=== PATIENT | male | born 1930 | race Caucasian/White ===

== ENCOUNTER 2016-02-27 15:44 | Inpatient (IN) | payer OTHER, MEDICARE ==
[2016-02-27] MEDS ORDERED: PREDNISONE 20 MG TABLET PO ONE (16:37)
[2016-02-27] MEDS ORDERED: IPRATROPIUM/ALBUTEROL 0.5-2.5 MG/3 ML AMPUL NEB ONE (16:37)
--- NOTE | 2016-02-27 16:39 | ER Document Report ---
ED Medical Screen (RME) - General Stated Complaint: SHORTNESS OF BREATH Mode of Arrival: Wheelchair Information source: Patient Notes: Patient presents complaining of generalized weakness, shortness of breath and cough for the past 4 days. Patient denies any fever or chest pain. hx: COPD TRAVEL OUTSIDE OF THE [place] IN LAST 30 DAYS: No - Related Data Allergies/Adverse Reactions: No Known Allergies Allergy (Verified 02/27/16 16:30) Past Medical History Pulmonary Medical History: Reports: Hx COPD Past Surgical History: Reports: Hx Orthopedic Surgery - bilat knees Physical Exam - Vital signs Vitals: Temp Pulse Resp BP Pulse Ox 98.4 F 107 H 24 H 148/88 H 93 02/27/16 16:08 02/27/16 16:08 02/27/16 16:08 02/27/16 16:08 02/27/16 16:08 - Respiratory Respiratory status: No respiratory distress Breath sounds: Nonproductive cough, Wheezing Course - Vital Signs Vital signs: Temp Pulse Resp BP Pulse Ox 98.4 F 107 H 24 H 148/88 H 93 02/27/16 16:08 02/27/16 16:08 02/27/16 16:08 02/27/16 16:08 02/27/16 16:08
[2016-02-27 17:45] LABS: HEMATOCRIT 43.4 % (37.9-51.0); HEMOGLOBIN 14.6 g/dL (13.5-17.0); HGB HCT DIFFERENCE 0.4; MEAN CORPUSCULAR HEMOGLOBIN 33.7 pg (27.0-33.4); MEAN CORPUSCULAR HGB CONC 33.6 g/dL (32.0-36.0); MEAN CORPUSCULAR VOLUME 100 fl (80-97); RED BLOOD COUNT 4.33 10^6/uL (4.35-5.55); RED CELL DISTRIBUTION WIDTH 13.4 % (11.5-14.0); WHITE BLOOD COUNT 6.7 10^3/uL (4.0-10.5)
[2016-02-27 17:55] LABS: ALANINE AMINOTRANSFERASE 84 U/L (21-72); ALBUMIN 3.2 g/dL (3.5-5.0); ALKALINE PHOSPHATASE 111 U/L (38-126); ANION GAP 10 (5-19); ASPARTATE AMINO TRANSFERASE 43 U/L (17-59); BILIRUBIN,TOTAL 0.8 mg/dL (0.2-1.3); BLOOD UREA NITROGEN 31 mg/dL (7-20); CALCIUM 9.9 mg/dL (8.4-10.2); CARBON DIOXIDE 33 mmol/L (22-30); CHLORIDE 100 mmol/L (98-107); CREATINE KINASE 22 U/L (55-170); CREATININE RESULT 0.82 mg/dL (0.52-1.25); GLUCOSE 172 mg/dL (75-110); POTASSIUM 4.5 mmol/L (3.6-5.0); SODIUM 142.8 mmol/L (137-145)
[2016-02-27 18:04] LABS: BASOPHILS % (MANUAL) 0 % (0-2); EOSINOPHILS % (MANUAL) 0 % (0-6); LYMPHOCYTES % (MANUAL) 5 % (13-45); TOTAL CELLS COUNTED 100
[2016-02-27 18:05] LABS: TOXIC GRANULATION SLIGHT
[2016-02-27 18:07] LABS: CREATINE KINASE MB 1.58 ng/mL (<4.55)
--- NOTE | 2016-02-27 18:08 | ER Document Report ---
ED Respiratory Problem <SUSHANT ANTONIO - Last Filed: 02/27/16 22:33> - General Mode of Arrival: Wheelchair Information source: Patient, Relative TRAVEL OUTSIDE OF THE [place] IN LAST 30 DAYS: No - HPI Patient complains to provider of: Short of breath Associated symptoms: Other - See above <ANALI CHÁVEZ - Last Filed: 03/04/16 15:33> - General Chief Complaint: Shortness Of Breath Stated Complaint: SHORTNESS OF BREATH Notes: Patient is an 86 year old male, with a past medical history including COPD, who presents to the emergency department complaining of shortness of breath onset 3 days ago. Patient also complains of nervousness causing him to hyperventilate and that squeezing his hands together helps make him fell like he's in control. Patient's reports that he had driven to [place] last week then they had a family [place] and that night he had become very weak and short of breath. Patient is not on any heart medications but uses medications for his COPD. Patient denies chest pain, fever, black or bloody stool, vomiting, and burning while urinating. (ANALI CHÁVEZ) - Related Data Allergies/Adverse Reactions: No Known Allergies Allergy (Verified 02/27/16 16:30) Home Medications: Current Home Medications Albuterol Sulfate [Proair HFA] 2 puff IH QIDP PRN 02/28/16 [History] Budesonide/Formoterol Fumarate [Symbicort Hfa 160-4.5 Mcg Inhaler 6 gm] 1 puff IH Q12 02/28/16 [History] Diclofenac Sodium [Voltaren] 2 gm TP QID MDD 32 GM/24 HOURS 02/28/16 [History] Ipratropium/Albuterol Sulfate [Combivent Inhaler] 1 puff IH QID 02/28/16 [ History] Montelukast Sodium 10 mg PO DAILY 02/28/16 [History] Tiotropium [place] [Spiriva Handihaler 18 mcg/dose (30 Dose)] 1 cap IH DAILY [History] Past Medical History - General Information source: Patient - Social History Smoking Status: Unknown if Ever Smoked Family History: Reviewed & Not Pertinent Pulmonary Medical History: Reports: Hx COPD Past Surgical History: Reports: Hx Orthopedic Surgery - bilat knees <ANALI CHÁVEZ - Last Filed: 03/04/16 15:33> Review of Systems - Review of Systems Constitutional: See HPI, Weakness. denies: Fever EENT: No symptoms reported Cardiovascular: denies: Chest pain Respiratory: See HPI, Short of breath, Other - hyperventilation Gastrointestinal: denies: Vomiting, Blood streaked bowels, Black stools Genitourinary: denies: Burning Male Genitourinary: No symptoms reported Musculoskeletal: No symptoms reported Skin: No symptoms reported Hematologic/Lymphatic: No symptoms reported Neurological/Psychological: No symptoms reported -: Yes All other systems reviewed and negative <ANALI CHÁVEZ - Last Filed: 03/04/16 15:33> Physical Exam - Vital signs Interpretation: Tachycardic, Tachypneic - General General appearance: Alert - HEENT Head: Normocephalic, Atraumatic Mucous membranes: Moist - Respiratory Respiratory status: Tachypnea Chest status: Nontender Breath sounds: Decreased air movement, Wheezing - Scattered expiratory wheezing bilaterally Chest palpation: Normal - Cardiovascular Rhythm: Regular, Tachycardia Heart sounds: Normal auscultation Murmur: No - Abdominal Inspection: Normal Distension: No distension Bowel sounds: Normal Tenderness: Nontender Organomegaly: No organomegaly - Back Back: Normal, Nontender - Extremities General upper extremity: Normal inspection General lower extremity: Edema - 2+ pitting edema bilaterally - Neurological Neuro grossly intact: Yes Cognition: Normal Orientation: AAOx4 [place] Coma Scale Eye Opening: Spontaneous [place] Coma Scale Verbal: Oriented [place] Coma Scale Motor: Obeys Commands [place] Coma Scale Total: 15 Speech: Normal - Psychological Associated symptoms: Normal affect, Normal mood - Skin Skin Temperature: Warm Skin Moisture: Dry Skin Color: Normal <ANALI CHÁVEZ - Last Filed: 03/04/16 15:33> - Vital signs Vitals: Temp Pulse Resp BP Pulse Ox 98.4 F 107 H 24 H 148/88 H 93 02/27/16 16:08 02/27/16 16:08 02/27/16 16:08 02/27/16 16:08 02/27/16 16:08 (SUSHANT ANTONIO) (ANALI CHÁVEZ) Course - Laboratory Result Diagrams: 02/27/16 17:20 02/27/16 17:20 - EKG Interpretation by [place] EKG shows normal: abnormal: Sinus rhythm Rate: Tachycardia Rhythm: A.Flutter, PVC's - unable to see p waves, so EKG most consistent with a. flutter with PVCs - will get second EKG P Waves: Absent <SUSHANT ANTONIO - Last Filed: 02/27/16 22:33> - Laboratory Result Diagrams: 03/04/16 04:03 03/04/16 04:03 <ANALI CHÁVEZ - Last Filed: 03/04/16 15:33> - Re-evaluation Re-evalutation: 02/27/16 22:33 Patient's exam and clinical findings are most remarkable for CHF with rapid atrial flutter and hypertension. Patient will be on Cardizem drip with Nitropaste. I have spoken with the hospitalist Dr. Burciaga who has agreed admission to the [facility]. (SUSHANT ANTONIO) - Vital Signs Vital signs: Temp Pulse Resp BP Pulse Ox 97.5 F 118 H 20 139/91 H 96 03/04/16 11:16 03/04/16 11:16 03/04/16 11:16 03/04/16 11:16 03/04/16 11:16 (SUSHANT ANTONIO) (ANALI CHÁVEZ) - Laboratory Laboratory results interpreted by me: 02/27/16 02/27/16 02/27/16 17:20 17:20 17:20 RBC 4.33 L MCV 100 H MCH 33.7 H Plt Count 136 L Lymphocytes % (Manual) 5 L Monocytes % (Manual) 20 H Abs Lymphs (Manual) 0.3 L D-Dimer VBG pCO2 VBG HCO3 Carbon Dioxide 33 H BUN 31 H Glucose 172 H ALT 84 H Creatine Kinase 22 L NT-Pro-B Natriuret Pep 7310 H Total Protein 6.0 L Albumin 3.2 L Urine Protein Urine Urobilinogen Urine Ascorbic Acid 02/27/16 02/27/16 02/28/16 17:20 17:55 01:10 RBC MCV MCH Plt Count Lymphocytes % (Manual) Monocytes % (Manual) Abs Lymphs (Manual) D-Dimer 1.08 H VBG pCO2 VBG HCO3 Carbon Dioxide BUN Glucose ALT Creatine Kinase < 20 L NT-Pro-B Natriuret Pep Total Protein Albumin Urine Protein 100 H Urine Urobilinogen 4.0 H Urine Ascorbic Acid 40 H 02/28/16 01:10 RBC MCV MCH Plt Count Lymphocytes % (Manual) Monocytes % (Manual) Abs Lymphs (Manual) D-Dimer VBG pCO2 68.5 H* VBG HCO3 35.1 H Carbon Dioxide BUN Glucose ALT Creatine Kinase NT-Pro-B Natriuret Pep Total Protein Albumin Urine Protein Urine Urobilinogen Urine Ascorbic Acid (SUSHANT ANTONIO) (ANALI CHÁVEZ) - EKG Interpretation by Me Additional EKG results interpreted by me: 02/27/16 22:32 EKG2 - heart rate 121, atrial flutter with 2-1 block, PVCs, left axis deviation , left ventricular hypertrophy, as interpreted by me. (SSUHANT ANTONIO) Scribe Documentation - Scribe Written by Scribe:: Anali Chávez 02/27/16 acting as scribe for :: Tolentino <ANALI CHÁVEZ - Last Filed: 03/04/16 15:33>
[2016-02-27 18:10] LABS: TROPONIN I 0.051 ng/mL
[2016-02-27] MEDS ORDERED: NORMAL SALINE 1000 ML 500 ML IV PRN (18:24)
[2016-02-27 18:39] LABS: APPEARANCE,URINE SLIGHTLY-CLOUDY; BILIRUBIN,URINE NEGATIVE (NEGATIVE); GLUCOSE, URINE NEGATIVE (NEGATIVE); KETONES,URINE NEGATIVE (NEGATIVE); LEUKOCYTE ESTERASE,URINE NEGATIVE (NEGATIVE); NITRITE,URINE NEGATIVE (NEGATIVE); PROTEIN,URINE 100 mg/dL (NEGATIVE); URINE SPECIFIC GRAVITY 1.029
--- NOTE | 2016-02-27 18:56 | EKG REPORT ---
SEVERITY:- ABNORMAL ECG - ATRIAL FLUTTER/FIBRILLATION, A-RATE 254 MULTIPLE PREMATURE COMPLEXES, VENT LVH WITH IVCD, LAD AND SECONDARY REPOL ABNRM : Confirmed by: Franklin Pugh MD 27-Feb-2016 18:55:49
[2016-02-27] MEDS ORDERED: DILTIAZEM HCL INJ 25 MG/5 ML VIAL IV ONE (20:42)
[2016-02-27] MEDS ORDERED: DILTIAZEM HCL/D5W 125 ML IV PRN (20:44)
[2016-02-27] MEDS ORDERED: NITROGLYCERIN 10 MG (0.4 MG/HR) PATCH.TD24 TD ONE (20:44)
[2016-02-27] MEDS ORDERED: GLUCAGON,HUMAN RECOMB 1 MG INJ IM PRN (23:30)
[2016-02-27] MEDS ORDERED: INSULIN LISPRO 100 UNIT/ML 3 ML VIAL SUBCUT PRN (23:30)
[2016-02-27] MEDS ORDERED: DEXTROSE 50%-WATER 25 GM/50 ML DISP.SYRIN IV PRN ×2 (23:30)
[2016-02-27] MEDS ORDERED: DEXTROSE 40% GEL 15 GM TUBE PO PRN ×2 (23:30)
[2016-02-27] MEDS ORDERED: CEFTRIAXONE 1 GM/D5W RTU 50 ML IV SCH (23:45)
[2016-02-28] MEDS: CEFTRIAXONE 1 GM/D5W RTU 1 GM/50 ML RTUPB IV SCH ×2 (01:00→16:34)
[2016-02-28] MEDS: CEFTRIAXONE 1 GM/D5W RTU 1 GM/50 ML RTUPB IV ONE (01:00)
[2016-02-28] MEDS ORDERED: AZITHROMYCIN 500 MG in DEXTROSE 5%-WATER 250 ML IV ONE (01:00)
[2016-02-28 01:18] LABS: VENOUS BLOOD BASE EXCESS 6.7 mmol/L; VENOUS BLOOD HCO3 35.1 mmol/L (20-32); VENOUS BLOOD PH 7.33 (7.30-7.42)
[2016-02-28] MEDS ORDERED: ACETAMINOPHEN 325 MG TABLET PO PRN (01:19)
[2016-02-28] MEDS ORDERED: ALBUTEROL SULFATE 0.083% NEB 2.5 MG/3 ML AMPUL NEB PRN (01:19)
[2016-02-28] MEDS ORDERED: GUAIFENESIN SYRP 200 MG/10 ML UDC PO PRN (01:19)
[2016-02-28 01:26] LABS: VENOUS BLOOD PCO2 68.5 mmHg (35-63)
--- NOTE | 2016-02-28 01:35 | PDOC H&P ---
History of Present Illness Admission Date/PCP: [place] Patient complains of: Short of breath History of Present Illness: SILVESTRE DELGADILLO is a 86 year old male with underlying home O2 dependent COPD, 2 L oxygen per nasal cannula, 23/09, who presents to the emergency room for evaluation of above complaint. Patient has been discussed with emergency room physician who evaluated the patient. Patient himself is a fairly rambling, somewhat disjointed historian. , who is his surrogate healthcare decision maker, and who is at his side with his approval, is about the same. Describes a three-day history of slowly progressive shortness of breath, in particular with much of any exertion. No nausea vomiting, fever or chills. No pain. He normally produces only small amounts of clear white sputum. Over the last 2- 3 days, sputum has turned brownish green and is greatly increased in amount. Questionable sick contacts recently consisting of family members who had cared for a child with strep throat. Child was not in the home itself. Never been intubated for respiratory difficulty. No antibiotics or hospital stay for the past 3 months. Up-to-date with flu and pneumonia vaccinations. Has apparently been told in the past that he has a "irregular heartbeat," but neither he nor have never heard the terms atrial fibrillation or atrial flutter, per se. No history of congestive heart failure or myocardial infarction. Questionable DVT in the . Currently resting quietly, stating he does feel a bit better. Laboratory results are listed in [facility] and are reviewed. X-ray summary results are listed below, with full report(s) reviewed. . EKG's reviewed . No old EKG available for comparison. Social history/personal habits: . One child. Retired. No tobacco use since 1974. Occasional alcoholic drink, but not very much or very often. No illicit drug use. Should patient become mentally incapacitated, surrogate health care decision maker . Family History : Child is healthy. Siblings are . Father of complications of diabetes mellitus. Mother of complications of heart disease. Allergies/adverse reactions NKDA. Home medications Home medications initially autopopulated into [employer] [facility] may not accurately reflect patient's true medications, dosages, and/or frequencies. Unfortunately, patient uncertain of medications/dosages/frequencies. Order to be entered for staff to contact family, outpatient physician, and/or pharmacy to more accurately determine medications, dosages, and frequencies and to contact physician when that has been accomplished. REVIEW OF SYSTEMS: Constitutional: No fever or chills. Eyes: Wears glasses. ENT: No swallowing problems or complaints. Partial hearing loss. Pulmonary: See history and present illness. Cardiovascular: See history and present illness. Gastrointestinal: No current complaints, including nausea or vomiting. Skin: No current complaints, including rashes. Hematologic: Easy bruising. Neurologic: No current complaints, including numbness or tingling. Musculoskeletal: No current complaints, including painful joints. Psychiatric: Anxiety depression; denies suicidal or homicidal ideation. Endocrine: No current complaints, including polyuria. Genitourinary: No current complaints, including dysuria. PHYSICAL EXAMINATION: 6 feet tall. 92 kg. 27.5 kg/m BMI. Blood pressure 136/97. Pulse 108 and slightly irregular. 91% saturation on 4 L oxygen per nasal cannula. Respirations are 26 and unlabored. Slightly overweight somewhat chronically ill appearing male, who nevertheless appears a bit younger than his stated age. Pleasant awake alert and cooperative. Fairly talkative gentleman. Mildly anxious, without agitation. Skin is warm and dry. No grossly obvious evidence of rash in areas of skin examined. No subcutaneous nodules palpated. ENT: Mildly hard of hearing to normal conversation. Tongue midline on protrusion pink and slightly tacky Eyes: No scleral icterus. Pupils equal and reactive to light at 3 mm. [place] conjunctivae. Neck is supple and nontender to gentle active range of motion and palpation. Midline trachea. No palpable thyroid nodule mass enlargement or tenderness. Lymphatic: No palpable cervical or clavicular nodes. Neck and lymphatic exams limited by patient body habitus. Psychiatric: Fair to reasonable insight into acute and chronic medical issues, although as noted above, he is a rather rambling, somewhat disjointed historian at times. Oriented to time location and why here. Lungs: Auscultation reveals slightly decreased, somewhat coarse breath sounds at the left base. Breath sounds clear and equal otherwise. No use of accessory respiratory muscles. Cardiovascular: Heart slightly irregular rate and rhythm, without gallop murmur or rub. No carotid or abdominal aortic bruits. Scant, minimally pitting lower calf, ankle, and pedal pedal edema. Faintly palpable dorsalis pedis pulses. Abdomen: soft, somewhat, distended nontender with positive bowel sounds. Unable to adequately evaluate abdomen for masses or organomegaly due to distention. Extremities: Feet are warm and dry. No calf tenderness to compression. Gentle manipulation of lower extremities fails to reveal any obvious evidence of injury or instability to knees hips or ankles. Neurologic: Moves upper extremities grossly normally. Patellar reflexes absent. Absent Babinski. Light touch is intact at feet. Dorsiflexion and plantarflexion of feet 5 / 5 and symmetric. Past Medical History Cardiac Medical History: Reports: DVT - Questionable DVT, 1980s., Other - History of irregular heartbeat. Denies: Congestive Heart Failure, Myocardial Infarction, Hyperlipidema, Hypertension, Pulmonary Embolism Pulmonary Medical History: Reports: Chronic Obstructive Pulmonary Disease (COPD) EENT Medical History: Reports: Eyes - Wears glasses., Ears - Partial hearing loss. Denies: Throat Neurological Medical History: Denies: Hemorrhagic CVA, Ischemic CVA, Seizures Endocrine Medical History: Denies: Diabetes Mellitus Type 1, Diabetes Mellitus Type 2, Hyperthyroidism, Hypothyroidism Renal/ Medical History: Reports: None Malignancy Medical History: Reports: Skin Cancer - Status post excision of melanoma from his anterior abdominal wall. GI Medical History: Denies: Cirrhosis, Gastroesophageal Reflux Disease, Hepatitis, Peptic Ulcer Disease Musculoskeltal Medical History: Denies: Arthritis Skin Medical History: Reports: Other - Status post excision of melanoma from his anterior abdominal wall. Psychiatric Medical History: Reports: Depression, General Anxiety Disorder Denies: Alcohol Dependency, Substance Abuse, Tobacco Dependency Hematology: Reports: Other - Easy bruising. Infectious Medical History: Denies: Hepatitis B, Hepatitis C Past Surgical History Past Surgical History: Reports: Orthopedic Surgery - bilat knees, Other - Excision of melanoma from his anterior abdominal wall. Social History Information Source: Patient, Relative, Emergency Med Personnel, [facility] Records Lives with: Spouse/Significant other Smoking Status: Former Smoker Frequency of Alcohol Use: Occasional Drugs: None - Advance Directive Resuscitation Status: Full Code Family History Family History: Reviewed & Not Pertinent Parental Family History Reviewed: Yes Children Family History Reviewed: Yes Sibling(s) Family History Reviewed.: Yes Medication/Allergy Home Medications: Albuterol Sulfate [Proair HFA] 2 puff IH QIDP PRN 02/28/16 Budesonide/Formoterol Fumarate [Symbicort Hfa 160-4.5 Mcg Inhaler 6 gm] 1 puff IH Q12 02/28/16 Diclofenac Sodium [Voltaren] 2 gm TP QID MDD 32 GM/24 HOURS 02/28/16 Ipratropium/Albuterol Sulfate [Combivent Inhaler] 1 puff IH QID 02/28/16 Montelukast Sodium 10 mg PO DAILY 02/28/16 Tiotropium [place] [Spiriva Handihaler 18 mcg/dose (30 Dose)] 1 cap IH DAILY Allergies/Adverse Reactions: No Known Allergies Allergy (Verified 02/27/16 16:30) Physical Exam Vital Signs: Temp Pulse Resp BP Pulse Ox 98.4 F 107 H 29 H 136/97 H 92 02/27/16 16:08 02/27/16 16:08 02/27/16 22:52 02/27/16 22:52 02/27/16 22:52 Intake & Output 02/26/16 02/27/16 02/28/16 00:59 00:59 00:59 Weight 92 kg Results Laboratory Results: 02/27/16 17:20 02/27/16 17:20 02/27/16 02/27/16 02/27/16 17:20 17:20 17:55 WBC 6.7 RBC 4.33 L Hgb 14.6 Hct 43.4 MCV 100 H MCH 33.7 H MCHC 33.6 RDW 13.4 Plt Count 136 L Seg Neutrophils % Not Reportable Lymphocytes % Not Reportable Monocytes % Not Reportable Eosinophils % Not Reportable Basophils % Not Reportable Absolute Neutrophils Not Reportable Absolute Lymphocytes Not Reportable Absolute Monocytes Not Reportable Absolute Eosinophils Not Reportable Absolute Basophils Not Reportable Sodium 142.8 Potassium 4.5 Chloride 100 Carbon Dioxide 33 H Anion Gap 10 BUN 31 H Creatinine 0.82 Est GFR ( Amer) > 60 Est GFR (Non-Af Amer) > 60 Glucose 172 H Calcium 9.9 Total Bilirubin 0.8 AST 43 ALT 84 H Alkaline Phosphatase 111 Total Protein 6.0 L Albumin 3.2 L Urine Color DARK YELLOW Urine Appearance SLIGHTLY-CLOUDY Urine pH 6.0 Ur Specific [place] 1.029 Urine Protein 100 H Urine Glucose (UA) NEGATIVE Urine Ketones NEGATIVE Urine Blood NEGATIVE Urine Nitrite NEGATIVE Ur Leukocyte Esterase NEGATIVE Urine WBC (Auto) 1 Urine RBC (Auto) 1 02/27/16 02/27/16 17:20 17:20 Creatine Kinase 22 L CK-MB (CK-2) 1.58 Troponin I 0.051 NT-Pro-B Natriuret Pep 7310 H Impressions: Chest X-Ray 02/27/16 16:38 IMPRESSION: LOWER LOBE AIRSPACE DISEASE SEEN ON LATERAL VIEW ONLY SUGGESTIVE OF PNEUMONIA. RECOMMEND FOLLOWUP RADIOGRAPHS 4 TO 6 WEEKS TO ENSURE RESOLUTION. Assessment & Plan - Diagnosis (1) Atrial flutter with rapid ventricular response Is this a current diagnosis for this admission?: YesPlan: Likely secondary to pneumonia. Currently on Cardizem drip, hemodynamically stable. Wean as tolerated. Cardiology consult. Echocardiogram. (2) Congestive heart failure Qualifiers: Congestive heart failure type: unspecified congestive heart failure type Congestive heart failure chronicity: acute Qualified Code(s): I50.9 - Heart failure, unspecified Is this a current diagnosis for this admission?: YesPlan: Likely secondary to atrial flutter with rapid ventricular response. Echocardiogram. Cardiology consult. (3) Elevated LFTs Is this a current diagnosis for this admission?: YesPlan: Possibly secondary to congestive heart failure. Follow-up chemistry. (4) New onset atrial flutter Is this a current diagnosis for this admission?: YesPlan: Elevated d-dimer. Negative ventilation perfusion lung scan. Suspect due to underlying pneumonia. (5) COPD exacerbation Is this a current diagnosis for this admission?: Yes (6) LLL pneumonia Qualifiers: Pneumonia type: due to unspecified organism Qualified Code(s): J18.1 - Lobar pneumonia, unspecified organism Is this a current diagnosis for this admission?: YesPlan: Patient will be admitted under COPD exacerbation and pneumonia protocol. Incentive spirometry twice a day. Scheduled DuoNeb's. PRN albuterol nebs daily prednisone. Prevacid for gastritis prophylaxis. Antibiotics will consist of intravenous Zithromax, and Rocephin. I strongly encouraged patient to notify staff should patient feel that respiratory status is worsening. Patient is a full code. I have strongly encouraged patient not to get out of bed without notifying staff , , to avoid a fall with injury. Knee high SCDs for DVT prophylaxis, along with subcutaneous Lovenox Impression and plans were discussed with patient, and , both of whom concur. Time spent in evaluation and management of patient: 75 minutes. - Inpatient Certification Based on my medical assessment, after consideration of the patient's comorbidities, presenting symptoms, or acuity I expect that the services needed warrant INPATIENT care.: Yes I certify that my determination is in accordance with my understanding of Medicare's requirements for reasonable and necessary INPATIENT services [42 CFR 412.3e].: Yes Medical Necessity: Need Close Monitoring Due to Risk of Patient Decompensation, Need For Continuous Telemetry Monitoring, Need for Nebulizer Therapy and Monitoring of Response, Need for IV Antibiotics, Risk of Complication if Not Cared For in Hospital, Risk of Diagnosis Which Will Require Inpatient Eval/Care/ Monitoring Post Hospital Care: D/C or Transfer Summary
[2016-02-28 01:45] LABS: CREATINE KINASE < 20 U/L (55-170)
[2016-02-28 02:00] LABS: CREATINE KINASE MB 1.47 ng/mL (<4.55); TROPONIN I 0.046 ng/mL
[2016-02-28] MEDS: LANSOPRAZOLE 30 MG TAB.RAP.DR PO SCH (07:00)
[2016-02-28] MEDS ORDERED: AZITHROMYCIN INJ 500 MG VIAL IV ONE (07:03)
[2016-02-28 07:48] LABS: VENOUS BLOOD BASE EXCESS 7.8 mmol/L; VENOUS BLOOD HCO3 37.1 mmol/L (20-32); VENOUS BLOOD PH 7.3 (7.30-7.42)
[2016-02-28 07:53] LABS: HEMATOCRIT 38.2 % (37.9-51.0); HEMOGLOBIN 12.8 g/dL (13.5-17.0); HGB HCT DIFFERENCE 0.2; MEAN CORPUSCULAR HEMOGLOBIN 33.8 pg (27.0-33.4); MEAN CORPUSCULAR HGB CONC 33.6 g/dL (32.0-36.0); MEAN CORPUSCULAR VOLUME 101 fl (80-97); RED CELL DISTRIBUTION WIDTH 13.1 % (11.5-14.0); WHITE BLOOD COUNT 5.6 10^3/uL (4.0-10.5)
[2016-02-28 07:54] LABS: VENOUS BLOOD PCO2 76.5 mmHg (35-63)
[2016-02-28] MEDS ORDERED: ENOXAPARIN SODIUM INJ 40 MG/0.4 ML DISP.SYRIN SUBCUT SCH (08:00)
[2016-02-28] MEDS ORDERED: IPRATROPIUM/ALBUTEROL 0.5-2.5 MG/3 ML AMPUL NEB SCH (08:00)
[2016-02-28 08:07] LABS: ALANINE AMINOTRANSFERASE 73 U/L (21-72); ALBUMIN 2.5 g/dL (3.5-5.0); ALKALINE PHOSPHATASE 86 U/L (38-126); ANION GAP 7 (5-19); ASPARTATE AMINO TRANSFERASE 28 U/L (17-59); BILIRUBIN,TOTAL 0.6 mg/dL (0.2-1.3); BLOOD UREA NITROGEN 27 mg/dL (7-20); CALCIUM 9.2 mg/dL (8.4-10.2); CARBON DIOXIDE 35 mmol/L (22-30); CHLORIDE 100 mmol/L (98-107); CREATININE RESULT 0.73 mg/dL (0.52-1.25); GLUCOSE 135 mg/dL (75-110); POTASSIUM 4.7 mmol/L (3.6-5.0); SODIUM 142.3 mmol/L (137-145)
[2016-02-28 08:13] LABS: CREATINE KINASE < 20 U/L (55-170)
--- NOTE | 2016-02-28 08:15 | EKG REPORT ---
SEVERITY:- ABNORMAL ECG - ATRIAL FLUTTER WITH 2:1 AV BLOCK VENTRICULAR PREMATURE COMPLEX LAD, CONSIDER LEFT ANTERIOR FASCICULAR BLOCK LVH WITH SECONDARY REPOLARIZATION ABNORMALITY : Confirmed by: Franklin Pugh MD 28-Feb-2016 08:14:25
[2016-02-28 08:18] LABS: CREATINE KINASE MB 1.41 ng/mL (<4.55); TROPONIN I 0.03 ng/mL
[2016-02-28 08:22] LABS: BAND NEUTROPHILS % (MANUAL) 5 % (3-5); BASOPHILS % (MANUAL) 0 % (0-2); EOSINOPHILS % (MANUAL) 0 % (0-6); LYMPHOCYTES % (MANUAL) 8 % (13-45); TOTAL CELLS COUNTED 100
[2016-02-28 08:24] LABS: POLYCHROMASIA SLIGHT; TOXIC GRANULATION 1+
[2016-02-28] MEDS: DILTIAZEM HCL/D5W 125 ML IV PRN (08:32)
[2016-02-28] MEDS: PREDNISONE 20 MG TABLET PO SCH (09:51)
[2016-02-28] MEDS ORDERED: NORMAL SALINE 1000 ML 1,000 ML IV PRN (10:32)
[2016-02-28] MEDS ORDERED: LEVALBUTEROL HCL NEB 0.63 MG/3 ML AMPUL NEB PRN (10:56)
--- NOTE | 2016-02-28 11:56 | XCELERA REPORT ---
[address] [address] Transthoracic Echocardiogram Report Name: SILVESTRE DELGADILLO Age: 86 yrs Gender: Male : 1930 Patient Status: Inpatient Patient Location: \S\ED18\S\A Study Date: 02/28/2016 09:20 AM Height: 72 in Weight: 202 lb BSA: 2.1 m2 Procedure: A two-dimensional transthoracic echocardiogram with color flow and Doppler was performed. The study was technically difficult with many images being suboptimal in quality. Study Quality: Technically suboptimal. Reason For Study: new aflutter; susp chf History: ATRIAL FLUTTER / COPD. Ordering Physician: EMERSON SHETH Performed By: Mariann Champion Interpretation Summary The left ventricle is normal in size. There is normal left ventricular wall thickness. Left ventricular systolic function is mildly reduced. LV EF is 45% to 50% Difficult to assess LVEF accurately. Possible IV septum and Anterior wall mild hypokinesis. Suspect at least moderate RV enlargement with mildly reduced RVEF. The right atrium is moderate to severely dilated. The left atrium is mildly dilated. There is no evidence of mitral valve prolapse. There is no mitral valve stenosis. There is a trace to mild amount of mitral regurgitation There is no aortic valve stenosis There is no LVOT obstruction. There is aortic sclerosis without stenosis. No aortic regurgitation is present. There is no tricuspid stenosis. There is a mild amount of tricuspid regurgitation RVSP is 52 mm of Hg , with RA mean of 20. There is no pericardial effusion. MMode/2D Measurements \T\ Calculations RVDd: 3.9 cm LVIDd: 5.3 cm FS: 21.8 % Ao root diam: 3.0 cm IVSd: 1.0 cm LVIDs: 4.1 cm EDV(Teich): 133.3 ml LVPWd: 0.99 cm ESV(Teich): 75.1 ml Ao root area: 7.2 cm2 EF(Teich): 43.7 % LA dimension: 4.3 cm Doppler Measurements \T\ Calculations MV E max patty: MV P1/2t max patty: Ao V2 max: LV V1 max P.4 cm/sec 84.9 cm/sec 129.9 cm/sec 3.3 mmHg MV P1/2t: 49.9 msec Ao max PG: LV V1 max: 6.8 mmHg 90.3 cm/sec MVA(P1/2t): 4.4 cm2 MV dec slope: 498.1 cm/sec2 MV dec time: 0.17 sec PA V2 max: TR max patty: 98.2 cm/sec 279.6 cm/sec PA max PG: TR max P.3 mmHg 3.9 mmHg Left Ventricle The left ventricle is normal in size. There is normal left ventricular wall thickness. Left ventricular systolic function is mildly reduced. LV EF is 45% to 50%. Difficult to assess LVEF accurately. LV diastolic function could not be adequately assessed due to atrial fibrilation. Possible IV septum and Anterior wall mild hypokinesis. There is no thrombus. There is no ventricular septal defect visualized. Right Ventricle Suspect at least moderate RV enlargement with mildly reduced RVEF. Atria The right atrium is moderate to severely dilated. The left atrium is mildly dilated. The interatrial septum is intact with no evidence for an atrial septal defect. Mitral Valve There is no evidence of mitral valve prolapse. There is no vegetation seen on the mitral valve. There is no mitral valve stenosis. There is a trace to mild amount of mitral regurgitation. Aortic Valve There is no aortic valvular vegetation. There is no aortic valve stenosis. There is no LVOT obstruction. There is aortic sclerosis without stenosis. No aortic regurgitation is present. Tricuspid Valve There is no tricuspid stenosis. There is a mild amount of tricuspid regurgitation. There is moderate pulmonary hypertension by echo. RVSP is 52 mm of Hg , with RA mean of 20. Pulmonic Valve There is no pulmonic valvular stenosis. There is no pulmonic valvular regurgitation. Great Vessels The aortic root is not well visualized but is probably normal size. The inferior vena cava appeared dilated and decreased < 50% with respiration (RAP 15-20 mmHg). Effusions There is no pericardial effusion. : EMERSON SHETH > Nancy Zapata
[2016-02-28 13:25] LABS: VENOUS BLOOD BASE EXCESS 2.2 mmol/L; VENOUS BLOOD HCO3 31.2 mmol/L (20-32); VENOUS BLOOD PH 7.26 (7.30-7.42)
[2016-02-28 13:27] LABS: VENOUS BLOOD PCO2 70.9 mmHg (35-63)
[2016-02-28] MEDS: LEVALBUTEROL HCL NEB 1.25 MG/3 ML AMPUL NEB SCH ×2 (13:51→19:51)
--- NOTE | 2016-02-28 16:01 | PDOC PROGRESS REPORT ---
Subjective Progress Note for:: 02/28/16 Subjective:: The patient was seen earlier today on rounds. The patient was lying in bed. The only concern the patient had was making sure his knew what room he was in. The patient denies any nausea, vomiting, diarrhea, shortness of breath, dizziness, chest pain, heart palpitations, fevers, or chills. The patient has remained afebrile. Blood pressures have been in a good range. When prompted the patient voices no other concerns at this time. Review of systems: The rest of the review of systems is negative. Physical Exam Vital Signs: Temp Pulse Resp BP Pulse Ox 97.6 F 77 31 H 119/68 94 02/28/16 13:41 02/28/16 14:00 02/28/16 14:00 02/28/16 13:41 02/28/16 14:00 Intake & Output 02/26/16 02/27/16 02/28/16 23:59 23:59 23:59 Intake Total 0 Balance 0 Weight 90.4 kg General appearance: PRESENT: no acute distress, cooperative, well-developed - Frail-appearing Head exam: PRESENT: atraumatic, normocephalic Eye exam: PRESENT: conjunctiva pink, EOMI, PERRLA. ABSENT: scleral icterus Ear exam: PRESENT: normal external ear exam Mouth exam: PRESENT: moist, tongue midline Neck exam: ABSENT: carotid bruit, JVD, lymphadenopathy, thyromegaly Respiratory exam: PRESENT: decreased breath sounds. ABSENT: rales, rhonchi, wheezes Cardiovascular exam: PRESENT: RRR. ABSENT: diastolic murmur, rubs, systolic murmur Pulses: PRESENT: normal dorsalis pedis pul Vascular exam: PRESENT: normal capillary refill GI/Abdominal exam: PRESENT: normal bowel sounds, soft. ABSENT: distended, guarding, mass, organolmegaly, rebound, tenderness Rectal exam: PRESENT: deferred Extremities exam: PRESENT: full ROM. ABSENT: calf tenderness, clubbing, pedal edema Neurological exam: PRESENT: alert - A little delayed, awake, oriented to person , oriented to place. ABSENT: motor sensory deficit Psychiatric exam: PRESENT: flat affect, normal mood. ABSENT: homicidal ideation , suicidal ideation Skin exam: PRESENT: dry, intact, warm. ABSENT: cyanosis, rash Results Laboratory Results: 02/28/16 07:34 02/28/16 07:34 02/28/16 02/28/16 02/28/16 07:34 07:34 07:34 WBC 5.6 RBC 3.80 L Hgb 12.8 L Hct 38.2 MCV 101 H MCH 33.8 H MCHC 33.6 RDW 13.1 Plt Count 123 L Seg Neutrophils % Not Reportable Lymphocytes % Not Reportable Monocytes % Not Reportable Eosinophils % Not Reportable Basophils % Not Reportable Absolute Neutrophils Not Reportable Absolute Lymphocytes Not Reportable Absolute Monocytes Not Reportable Absolute Eosinophils Not Reportable Absolute Basophils Not Reportable VBG pH 7.30 VBG pCO2 76.5 H* VBG HCO3 37.1 H VBG Base Excess 7.8 Sodium 142.3 Potassium 4.7 Chloride 100 Carbon Dioxide 35 H Anion Gap 7 BUN 27 H Creatinine 0.73 Est GFR ( Amer) > 60 Est GFR (Non-Af Amer) > 60 Glucose 135 H Calcium 9.2 Total Bilirubin 0.6 AST 28 ALT 73 H Alkaline Phosphatase 86 Total Protein 5.0 L Albumin 2.5 L 02/28/16 13:12 WBC RBC Hgb Hct MCV MCH MCHC RDW Plt Count Seg Neutrophils % Lymphocytes % Monocytes % Eosinophils % Basophils % Absolute Neutrophils Absolute Lymphocytes Absolute Monocytes Absolute Eosinophils Absolute Basophils VBG pH 7.26 L VBG pCO2 70.9 H* VBG HCO3 31.2 VBG Base Excess 2.2 Sodium Potassium Chloride Carbon Dioxide Anion Gap BUN Creatinine Est GFR ( Amer) Est GFR (Non-Af Amer) Glucose Calcium Total Bilirubin AST ALT Alkaline Phosphatase Total Protein Albumin 02/28/16 02/28/16 07:34 07:34 Creatine Kinase < 20 L CK-MB (CK-2) 1.41 Troponin I 0.030 Impressions: Chest X-Ray 02/27/16 16:38 IMPRESSION: LOWER LOBE AIRSPACE DISEASE SEEN ON LATERAL VIEW ONLY SUGGESTIVE OF PNEUMONIA. RECOMMEND FOLLOWUP RADIOGRAPHS 4 TO 6 WEEKS TO ENSURE RESOLUTION. [facility] 02/28[facility] 01:18 IMPRESSION: Severe nonspecific diffuse diminished ventilation. NEGATIVE FOR PULMONARY EMBOLI. Assessment & Plan - Diagnosis (1) LLL pneumonia Qualifiers: Pneumonia type: due to unspecified organism Qualified Code(s): J18.1 - Lobar pneumonia, unspecified organism Is this a current diagnosis for this admission?: YesPlan: 02/28/16 01:23 INSPO [RESPCARE] RTBID 02/28/16 10:00 Ceftriaxone 1 gm/D5w RTU [Rocephin RTU 1 gm/D5w 50 ml Premix] 1 gm in 50 ml IV DAILY 02/28/16 22:00 Azithromycin [Zithromax Inj 500 mg Vial] 500 mg Dextrose 5%-Water [D5w 250 ml IV Soln] 250 ml IV QHS Guaifenesin [Mucinex Sr 600 mg Tablet.sa] 1,200 mg PO Q12 (2) Acute and chronic respiratory failure with hypercapnia Is this a current diagnosis for this admission?: YesPlan: Secondary to the above. Will place BiPAP as the patient has not been wearing 1 and repeat gas in a couple hours. 02/28/16 02/28/16 01:10 13:12 VBG pCO2 68.5 H* 70.9 H* 02/28/16 10:31 BIPAP [RESPCARE] RTPRN 02/28/16 18:00 VENOUS BLOOD GAS (PERIPHERAL) [CHEM] Timed 02/29/16 06:00 VENOUS BLOOD GAS (PERIPHERAL) [CHEM] IN AM (1) (3) COPD exacerbation Is this a current diagnosis for this admission?: YesPlan: VQ scan was suggestive of diffuse disease but no evidence of PE. Will continue home medications and follow. 02/28/16 10:00 Prednisone [Deltasone 20 mg Tablet] 60 mg PO DAILY 02/28/16 10:56 Levalbuterol HCl [Xopenex Neb 0.63 mg/3 ml Ampul] 0.63 mg NEB [id number] PRN Nebulizer Therapy Routine [RESPCARE] [id number] 02/28/16 14:00 Levalbuterol HCl [Xopenex Neb 1.25 mg/3 ml Ampul] 1.25 mg NEB [id number] 02/28/16 15:45 Flutter [PEP Device(PositiveExpiratory)] [RESPCARE] 02/28/16 22:00 Guaifenesin [Mucinex Sr 600 mg Tablet.sa] 1,200 mg PO Q12 (4) Atrial flutter with rapid ventricular response Is this a current diagnosis for this admission?: YesPlan: Do appreciate cardiology input with this. 02/27/16 20:42 Diltiazem HCl [Cardizem Inj 25 mg/5 ml Vial] 25 mg IV NOW ONE 02/27/16 23:25 Diltiazem HCl/D5w [Cardizem RTU Inj 125 mg-D5w 125 ml Premix] 125 ml IV CONTINUOUS 02/28/16 07:30 Physician [CONS] Timed Selected Entries 02/28/16 02/28/16 08:30 14:00 Pulse Rate 110 H 77 02/28/16 22:00 Enoxaparin Sodium [Lovenox Inj 100 mg/1 ml Disp.syrin] 90 mg SUBCUT Q12 (5) Congestive heart failure Qualifiers: Congestive heart failure type: unspecified congestive heart failure type Congestive heart failure chronicity: unspecified congestive heart failure chronicity Qualified Code(s): I50.9 - Heart failure, unspecified Is this a current diagnosis for this admission?: YesPlan: Do appreciate cardiology input with this. Echocardiogram is pending. (6) Elevated LFTs Is this a current diagnosis for this admission?: YesPlan: 02/28/16 07:34 AST 28 ALT 73 H (7) History of DVT (deep vein thrombosis) Is this a current diagnosis for this admission?: Yes - Time Time Spent with patient: on this followup including assessment, plan, physical examination, specialty collaboration and patient education is 35 minutes. Time Spent with patient: 35 or more minutes Medications reviewed and adjusted accordingly: Yes Anticipated discharge: Home, SNF Within: within 48 hours Disposition: The patient is a full code. Pending patient's symptomatology and diagnostic findings will reevaluate in the a.m.
[2016-02-28 18:37] LABS: VENOUS BLOOD BASE EXCESS 10.4 mmol/L; VENOUS BLOOD HCO3 39.6 mmol/L (20-32); VENOUS BLOOD PH 7.32 (7.30-7.42)
--- NOTE | 2016-02-28 19:18 | CONSULTATION REPORT E ---
Consultation Report NAME: SILVESTRE DELGADILLO : 1930 AGE: 86Y DATE: 02/28/2016 308 A TO: TAMERA ESPOSITO M.D. FROM: EMERSON SHETH M.D. Requesting Physician REASON FOR CONSULTATION: Atrial flutter/fibrillation. HISTORY OF PRESENT ILLNESS: Patient is an 86-year-old male who at present is confused and not able to give a history. History obtained from the patient's records and also after discussions with the patient's . Note that the patient is a DNR, and his is his surrogate healthcare decision maker. As per records and patient's , the patient has a 3-day history of shortness of breath with cough, initially whitish sputum, subsequently became yellowish. There is no hemoptysis. The patient continued to have shortness of breath with orthopnea but no PND or leg edema. He was admitted in the Emergency Room and found to have pneumonia and also acute exacerbation of COPD and also found to be in atrial flutter/fibrillation with a rapid ventricular response and placed on Cardizem drip, and his heart rate now is 70 beats per minute. He subsequently was placed on BiPAP also. The patient has no chest pain or discomfort. PAST MEDICAL HISTORY: As per the , he has a history of borderline hypertension not requiring any medication. Every now and then, the blood pressure will spike up, but usually, it is within normal range. There is no history of diabetes mellitus or thyroid disease. The patient has COPD and is on home oxygen. He quit smoking more than 10 years ago. No history of TIA or CVA. No history of sleep apnea. As per the , the patient usually is lucid but occasionally becomes confused. There is no documented history of depression or suicidal ideation. REVIEW OF SYSTEMS: Review of systems is very limited. CONSTITUTIONAL: From the , there is no history of fever, chills, or rigors. Patient has some generalized fatigue. HEENT: Head: No history of headaches, dizziness. No history of falls. Eyes: No history of amblyopia or diplopia. No history of amaurosis fugax. Ears: No history of hearing loss. No history of tinnitus. Mouth: No history of ulcers in the mouth. No bleeding from the mouth. Throat: No dysphagia. No recurrent sore throats. Nose: No history of hay fever. No history of nosebleeds. 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 There is no yellowish discoloration of the skin. There is no pruritus. NECK: There is no neck pain. There is no goiter. LUNGS: The patient has a history of COPD and is on home oxygen. The patient quit smoking about 10 years ago. There is recent cough with sputum production, initially white, subsequently yellowish in color. There is no pleuritic chest pain. The patient also by chest x-ray was found to have pneumonia in the right lower lobe. CARDIAC: The states that he was told he had a cardiac arrhythmia, but she does not remember anybody telling her that he was in atrial fibrillation and no anticoagulation discussions were discussed with her. There is no history of clear-cut but some blood pressure spikes not requiring any prolonged treatment for that. There is no history of congestive heart failure. There is no leg edema. There is no syncope. At present, the patient's atrial flutter/fibrillation, duration of which is not known. GASTROINTESTINAL: No history of GI bleed. No history of nausea or vomiting. No history of fatty food intolerance. RENAL: No history of chronic kidney disease. No history of symptoms of UTI. No history of symptoms of BPH. MUSCULOSKELETAL: There is no history of collagen vascular disease. No history of arthritis. ENDOCRINE: No history of diabetes mellitus. No history of thyroid disease. CENTRAL NERVOUS SYSTEM: No history of TIA or CVA. No history of headaches, migraines, or seizures. No gait imbalance and no falls. PSYCHIATRIC: No history of anxiety or depression. The patient has intermittent episodes of altered mental status. Otherwise, usually he is very lucid as per the . HEMATOLOGIC: No history of bleeding diathesis. No history of clotting disorders. ALLERGIES: The patient has no known allergies. HABITS: Smoking: The patient did smoke a long time ago. DISPOSITION: Note that the patient is DNR. His is his surrogate healthcare decision maker. MEDICATIONS: 1. He is on acetaminophen 650 mg p.o. q.4 hours. 2. He is on azithromycin 500 mg IV x1 and then subsequently at bedtime. 3. He is on Symbicort HFA 80/4.5 mg inhaler two puffs inhalation q.12 hours. 4. He is on ceftriaxone 1 g in 50 mL IV piggyback daily. 5. He is on Cardizem drip at 5 mg per hour. 6. He is on Lovenox 90 mg subcutaneously q.12 hours. 7. He is on Mucinex 1200 mg q.12 hours. 8. He is on Prevacid 30 mg p.o. q.6 a.m. 9. He is on Xopenex 0.63 mg nebulizer treatment q.4 hours. 10. He is on prednisone 60 mg p.o. daily. 11. He is on Spiriva inhaler one capsule inhalation daily. PAST SURGICAL HISTORY: 1. Melanoma removed from the abdomen. 2. Skin cancer removed from the forehead. 3. He has had bilateral knee replacements. PHYSICAL EXAMINATION: GENERAL: On examination, the patient is well built, well nourished, a little confused. VITAL SIGNS: He is afebrile with temperature of 97.3 degrees Fahrenheit. His pulse is 92 beats per minute, irregular. His blood pressure is 126/74. Respirations are 24 per minute. O2 saturations are 98% on BiPAP with O2 of 30%. HEENT: Head is atraumatic, normocephalic. Eyes: Pupils are equal, round, regular, reactive to light and accommodation. Ears: Tympanic membranes are intact. External auditory canals are clear. Nose: There is no deviated nasal septum. There is no inflammation of the nasal mucosa. Mouth: Mucous membranes of mouth are moist. Tongue is moist. There are no ulcers. There is no bleeding from the gums. Throat: There is no redness of the oropharynx. There are no exudates. NECK: Supple. There is no JVD. Carotids are equal; there is no bruit. There is no goiter. There is no lymphadenopathy. Trachea is central. LUNGS: Diminished air entry and prolonged expiration. Scattered rhonchi and wheezing bilaterally. There are a few dry crackles in the right lower lobe. CARDIOVASCULAR: S1, S2 are heard. There is no S3 gallop. S1 is of variable intensity. There is systolic murmur in the left sternal border and the apex. There is no rub. ABDOMEN: Soft, nontender. There is no hepatosplenomegaly. Bowel sounds are well heard. There are no tender areas or masses. EXTREMITIES: Femorals are slightly diminished. Leg pulses are diminished. There is no pedal edema. There is no DVT or cellulitis. There is no calf tenderness. There is no cyanosis or clubbing. PSYCHIATRIC: The patient is confused but does not appear to be agitated. DIAGNOSTIC STUDIES: The patient's chest x-ray shows lower lobe pneumonia in the lateral view only. There is no heart failure. The patient's initial EKG done on 02/27/2016 shows atrial flutter/fibrillation with *------* block, ventricular premature complexes, left axis deviation, consider left anterior fascicular block. LVH with secondary repolarization changes. His EKG done subsequently shows atrial fibrillation/flutter. LVH with IVCD and repolarization abnormality, left axis deviation. The patient's lung V/Q scan is negative for pulmonary emboli. The patient's echocardiogram shows the left ventricle is normal in size. Left ventricular wall thickness is normal. Left ventricular systolic function is mildly reduced at 45-50%. Difficult to assess LV ejection fraction accurately. Possible IV septum and anterior wall mild hypokinesis. Suspect at least moderate IV enlargement with mildly reduced RVEF. Right atrium is moderately to severely dilated. The left atrium is mildly dilated. There is no evidence of mitral valve prolapse. There is no mitral valve stenosis. There is trace to mild amount of mitral regurgitation. There is no aortic stenosis. There is no LVOT obstruction. There is aortic sclerosis without stenosis. There is no aortic regurgitation. There is mild to moderate tricuspid regurgitation. Right ventricular systolic pressure is moderately elevated at 22 mmHg with a mean of 20. There is no pericardial effusion seen. The patient's white count is 5600; hemoglobin is 12.8; hematocrit is 38.2; platelet count is reduced at 123,000. The patient's sodium is 142.3, potassium 3.7, chloride 100. His CO2 is 35. BUN is 27; creatinine is 0.73. GFR is greater than 60. His calcium is 9.2. His ALT is elevated at 73. Rest of the liver function tests are normal. His TSH is 0.84. His troponin-I is 0.046 and 0.030, hence, no definite evidence of ID. Earlier, the troponin-I was 0.046. His anti-ProBNP is 7310. His CPK-MBs have all been negative. IMPRESSION: 1. Altered mental status? Most likely secondary to infection and acute exacerbation of chronic obstructive pulmonary disease. 2. Atrial flutter/fibrillation. At present, heart rate controlled at 70 on IV Cardizem at 5 mg per hour. The patient also has been started on full-dose Lovenox at 90 mg subcutaneously q.12 hours. 3. Acute on chronic respiratory failure with hypercapnia. His gases show a pH of 7.26 and pCO2 of 70.9 which is venous draw. 4. Pneumonia right lower lobe. 5. Chronic obstructive pulmonary disease with acute exacerbation. 6. Abnormal liver function tests. RECOMMENDATIONS: Continue Lovenox full dose 90 mg q.12 hours. Continue Cardizem but decrease it to 2.5 mg per hour. Once the patient is off BiPAP, we will start the patient on Cardizem p.o. plus his beta gino if he can tolerate it. Continue antibiotics and nebulizer treatment. Note: All of the above discussed with the patient including chronic anticoagulation. I have discussed the option of Coumadin and the newer order anticoagulant agents. I have also spokes with the that with Coumadin he needs to have periodic PT/INR draws and if the patient's INR should be high the patient could have bleeding complications and can be reversed by fresh frozen plasma and vitamin K versus the newer anticoagulation agents which do not need dietary or medication interaction and no need for blood draw, but I have also discussed with the that with the newer anticoagulation agents such as Eliquis, Pradaxa, Xarelto if the patient should bleed there are no antidotes available. Discussed with the in detail. Discussed with the hospitalist taking care of the patient. TIME SPENT: Note 40 minutes spent on this patient with more than 50% of the time spent in direct patient care and also reviewing the patient's medications. Since the onset of the atrial flutter/fibrillation is not known, we have to presume that this is chronic. Discussed in detail with the patient's . Note echocardiographic findings were also discussed with the patient's and also the hospitalist. We will follow with you. DICTATING PHYSICIAN: TAMERA ESPOSITO M.D. [id number] PHY#: [id number] ID: [id number] JOB#: [id number] ACCT: [id number] cc:TAMERA ESPOSITO M.D. >
[2016-02-28] MEDS ORDERED: DEXTROSE 5%-NORMAL SALINE 1,000 ML IV PRN (19:45)
[2016-02-28] MEDS: AZITHROMYCIN 500 MG in DEXTROSE 5%-WATER 250 ML IV SCH (21:45)
[2016-02-28] MEDS: ENOXAPARIN SODIUM INJ 100 MG/1 ML DISP.SYRIN SUBCUT SCH (21:46)
[2016-02-28] MEDS: GUAIFENESIN 600 MG TABLET.SA PO SCH (21:47)
[2016-02-28] MEDS: MONTELUKAST SODIUM 10 MG TABLET PO SCH (21:48)
[2016-02-28] MEDS: BUDESONIDE/FORMOTEROL 160-4.5 MCG 60 PUFF/6 GM MDI IH SCH (21:50)
[2016-02-28 22:17] LABS: VENOUS BLOOD BASE EXCESS 7.9 mmol/L; VENOUS BLOOD HCO3 35.8 mmol/L (20-32); VENOUS BLOOD PH 7.35 (7.30-7.42)
[2016-02-28 22:30] LABS: VENOUS BLOOD PCO2 66.1 mmHg (35-63)
[2016-02-29 02:58] LABS: APPEARANCE,URINE CLEAR; BILIRUBIN,URINE NEGATIVE (NEGATIVE); GLUCOSE, URINE NEGATIVE (NEGATIVE); KETONES,URINE NEGATIVE (NEGATIVE); LEUKOCYTE ESTERASE,URINE NEGATIVE (NEGATIVE); NITRITE,URINE NEGATIVE (NEGATIVE); PROTEIN,URINE 30 mg/dL (NEGATIVE); URINE SPECIFIC GRAVITY 1.027
[2016-02-29 05:10] LABS: VENOUS BLOOD BASE EXCESS 7.8 mmol/L; VENOUS BLOOD HCO3 36.5 mmol/L (20-32); VENOUS BLOOD PH 7.32 (7.30-7.42)
[2016-02-29 05:13] LABS: VENOUS BLOOD PCO2 72.5 mmHg (35-63)
[2016-02-29 05:28] LABS: ANION GAP 5 (5-19); BLOOD UREA NITROGEN 32 mg/dL (7-20); CALCIUM 9.3 mg/dL (8.4-10.2); CARBON DIOXIDE 35 mmol/L (22-30); CHLORIDE 100 mmol/L (98-107); CREATININE RESULT 0.73 mg/dL (0.52-1.25); GLUCOSE 138 mg/dL (75-110); MAGNESIUM 2.2 mg/dL (1.6-2.3); POTASSIUM 4.8 mmol/L (3.6-5.0); SODIUM 140.2 mmol/L (137-145)
[2016-02-29] MEDS: LANSOPRAZOLE 30 MG TAB.RAP.DR PO SCH (06:22)
[2016-02-29] MEDS: DILTIAZEM HCL/D5W 125 ML IV PRN (07:27)
[2016-02-29] MEDS: LEVALBUTEROL HCL NEB 1.25 MG/3 ML AMPUL NEB SCH ×3 (07:45→23:31)
[2016-02-29] MEDS: CEFTRIAXONE 1 GM/D5W RTU 1 GM/50 ML RTUPB IV SCH (09:31)
[2016-02-29] MEDS: TIOTROPIUM BROMIDE DPI 5 CAP/KIT (18 MCG/CAP) IH SCH (09:32)
[2016-02-29] MEDS: PREDNISONE 20 MG TABLET PO SCH (09:32)
[2016-02-29] MEDS: BUDESONIDE/FORMOTEROL 160-4.5 MCG 60 PUFF/6 GM MDI IH SCH ×2 (09:32→23:29)
[2016-02-29] MEDS: GUAIFENESIN 600 MG TABLET.SA PO SCH ×2 (09:32→23:29)
[2016-02-29] MEDS: ENOXAPARIN SODIUM INJ 100 MG/1 ML DISP.SYRIN SUBCUT SCH ×2 (09:33→23:28)
--- NOTE | 2016-02-29 10:16 | PDOC PROGRESS REPORT ---
Subjective Progress Note for:: 02/29/16 Subjective:: The patient was seen earlier today on rounds. The patient was lying in bed. The only concern the patient had was making sure his knew what room he was in the hospital which is the same as yesterday. The patient is not a reliable historian at this point in time. The patient has remained afebrile. Blood pressures have been in a good range. The patient's heart rate has sustained in the 120s. When prompted the patient voices no other concerns at this time. Review of systems: The rest of the review of systems is negative. Physical Exam Vital Signs: Temp Pulse Resp BP Pulse Ox 97.4 F 105 H 22 H 117/82 96 02/29/16 07:31 02/29/16 07:45 02/29/16 07:45 02/29/16 09:16 02/29/16 07:45 Intake & Output 02/27/16 02/28/16 02/29/16 23:59 23:59 23:59 Intake Total 477 985 Output Total 550 Balance 477 435 Weight 90.4 kg 94.6 kg General appearance: PRESENT: no acute distress, cooperative, well-developed - Frail-appearing Head exam: PRESENT: atraumatic, normocephalic Eye exam: PRESENT: conjunctiva pink, EOMI, PERRLA. ABSENT: scleral icterus Ear exam: PRESENT: normal external ear exam Mouth exam: PRESENT: moist, tongue midline Neck exam: ABSENT: carotid bruit, JVD, lymphadenopathy, thyromegaly Respiratory exam: PRESENT: decreased breath sounds. ABSENT: rales, rhonchi, wheezes Cardiovascular exam: PRESENT: Irregularly irregular. ABSENT: diastolic murmur, rubs, systolic murmur Pulses: PRESENT: normal dorsalis pedis pul Vascular exam: PRESENT: normal capillary refill GI/Abdominal exam: PRESENT: normal bowel sounds, soft. ABSENT: distended, guarding, mass, organolmegaly, rebound, tenderness Rectal exam: PRESENT: deferred Extremities exam: PRESENT: full ROM. ABSENT: calf tenderness, clubbing, pedal edema Neurological exam: PRESENT: alert - A little delayed, awake, oriented to person , oriented to place. ABSENT: motor sensory deficit Psychiatric exam: PRESENT: flat affect, normal mood demented affect. ABSENT: homicidal ideation, suicidal ideation Skin exam: PRESENT: dry, intact, warm. ABSENT: cyanosis, rash Results Laboratory Results: 02/28/16 07:34 02/29/16 04:45 02/28/16 02/28/16 02/28/16 13:12 18:25 22:11 VBG pH 7.26 L 7.32 7.35 VBG pCO2 70.9 H* 78.0 H* 66.1 H* VBG HCO3 31.2 39.6 H 35.8 H VBG Base Excess 2.2 10.4 7.9 Sodium Potassium Chloride Carbon Dioxide Anion Gap BUN Creatinine Est GFR ( Amer) Est GFR (Non-Af Amer) Glucose Calcium Magnesium Urine Color Urine Appearance Urine pH Ur Specific [place] Urine Protein Urine Glucose (UA) Urine Ketones Urine Blood Urine Nitrite Ur Leukocyte Esterase Urine WBC (Auto) Urine RBC (Auto) 02/29/16 02/29/16 02/29/16 02:15 04:45 04:45 VBG pH 7.32 VBG pCO2 72.5 H* VBG HCO3 36.5 H VBG Base Excess 7.8 Sodium 140.2 Potassium 4.8 Chloride 100 Carbon Dioxide 35 H Anion Gap 5 BUN 32 H Creatinine 0.73 Est GFR ( Amer) > 60 Est GFR (Non-Af Amer) > 60 Glucose 138 H Calcium 9.3 Magnesium 2.2 Urine Color YELLOW Urine Appearance CLEAR Urine pH 6.0 Ur Specific [place] 1.027 Urine Protein 30 H Urine Glucose (UA) NEGATIVE Urine Ketones NEGATIVE Urine Blood NEGATIVE Urine Nitrite NEGATIVE Ur Leukocyte Esterase NEGATIVE Urine WBC (Auto) 1 Urine RBC (Auto) 6 02/28/16 02/28/16 07:34 07:34 Creatine Kinase < 20 L CK-MB (CK-2) 1.41 Troponin I 0.030 Impressions: Chest X-Ray 02/27/16 16:38 IMPRESSION: LOWER LOBE AIRSPACE DISEASE SEEN ON LATERAL VIEW ONLY SUGGESTIVE OF PNEUMONIA. RECOMMEND FOLLOWUP RADIOGRAPHS 4 TO 6 WEEKS TO ENSURE RESOLUTION. Lung Scan-[facility] 02/28/16 01:18 IMPRESSION: Severe nonspecific diffuse diminished ventilation. NEGATIVE FOR PULMONARY EMBOLI. Assessment & Plan - Diagnosis (1) LLL pneumonia Qualifiers: Pneumonia type: due to unspecified organism Qualified Code(s): J18.1 - Lobar pneumonia, unspecified organism Is this a current diagnosis for this admission?: YesPlan: 02/28/16 01:23 INSPO [RESPCARE] RTBID 02/28/16 10:00 Ceftriaxone 1 gm/D5w RTU [Rocephin RTU 1 gm/D5w 50 ml Premix] 1 gm in 50 ml IV DAILY 02/28/16 22:00 Azithromycin [Zithromax Inj 500 mg Vial] 500 mg Dextrose 5%-Water [D5w 250 ml IV Soln] 250 ml IV QHS Guaifenesin [Mucinex Sr 600 mg Tablet.sa] 1,200 mg PO Q12 (2) Acute and chronic respiratory failure with hypercapnia Is this a current diagnosis for this admission?: YesPlan: Secondary to the above. 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 Will encourage the BiPAP when the patient is not eating and repeat gases in the a.m. 02/28/16 10:31 BIPAP [RESPCARE] RTPRN 02/28/16 18:00 VENOUS BLOOD GAS (PERIPHERAL) [CHEM] Timed 02/29/16 06:00 VENOUS BLOOD GAS (PERIPHERAL) [CHEM] IN AM (1) (3) COPD exacerbation Is this a current diagnosis for this admission?: YesPlan: VQ scan was suggestive of diffuse disease but no evidence of PE. Will continue home medications and follow. 02/28/16 10:00 Prednisone [Deltasone 20 mg Tablet] 60 mg PO DAILY 02/28/16 10:56 Levalbuterol HCl [Xopenex Neb 0.63 mg/3 ml Ampul] 0.63 mg NEB [id number] PRN Nebulizer Therapy Routine [RESPCARE] [id number] 02/28/16 14:00 Levalbuterol HCl [Xopenex Neb 1.25 mg/3 ml Ampul] 1.25 mg NEB [id number] 02/28/16 15:45 Flutter [PEP Device(PositiveExpiratory)] [RESPCARE] 02/28/16 22:00 Guaifenesin [Mucinex Sr 600 mg Tablet.sa] 1,200 mg PO Q12 (4) Atrial flutter with rapid ventricular response Is this a current diagnosis for this admission?: YesPlan: Do appreciate cardiology input with this. 02/27/16 23:25 Diltiazem HCl/D5w [Cardizem RTU Inj 125 mg-D5w 125 ml Premix] 125 ml IV CONTINUOUS 02/28/16 07:30 Physician [CONS] Timed Selected Entries 02/28/16 22:00 Enoxaparin Sodium [Lovenox Inj 100 mg/1 ml Disp.syrin] 90 mg SUBCUT Q12 (5) Congestive heart failure Qualifiers: Congestive heart failure type: unspecified congestive heart failure type Congestive heart failure chronicity: unspecified congestive heart failure chronicity Qualified Code(s): I50.9 - Heart failure, unspecified Is this a current diagnosis for this admission?: YesPlan: Do appreciate cardiology input with this. (6) Elevated LFTs Is this a current diagnosis for this admission?: YesPlan: 02/28/16 07:34 AST 28 ALT 73 H (7) History of DVT (deep vein thrombosis) Is this a current diagnosis for this admission?: Yes - Time Time Spent with patient: on this followup including assessment, plan, physical examination, patient collaboration and attempted patient education is 35 minutes. Time Spent with patient: 35 or more minutes Medications reviewed and adjusted accordingly: Yes Anticipated discharge: Home with Homehealth, SNF Within: within 48 hours Disposition: The patient is a DO NOT RESUSCITATE DO NOT INTUBATE. Pending patient's symptomatology and diagnostic findings will reevaluate as needed.
[2016-02-29] MEDS ORDERED: DILTIAZEM HCL/D5W 125 MG/125 ML RTUINJ IV PRN (10:26)
--- NOTE | 2016-02-29 12:52 | EKG REPORT ---
SEVERITY:- ABNORMAL ECG - ATRIAL FLUTTER WITH 2:1 AV BLOCK LEFT ANTERIOR FASCICULAR BLOCK : Confirmed by: Franklin Pugh MD 29-Feb-2016 12:51:43
--- NOTE | 2016-02-29 14:28 | PROGRESS NOTE E ---
Progress Note NAME: SILVESTRE DELGADILLO : 1930 AGE: 86Y DATE: 02/29/2016 ROOM: 308 SUBJECTIVE: The patient is on the BiPAP and appears to be short of breath. He is also confused. He denies any chest pain but patient is not a reliable historian. He does have orthopnea but no PND or leg edema. He continues to be in atrial fibrillation/flutter but the heart rate had gone up to 123. There is no TIA or CVA symptoms. The patient is not agitated. OBJECTIVE: GENERAL: On examination, he is well built and appears to be well nourished in mild to moderate respiratory distress. VITAL SIGNS: He is afebrile with a temperature of 98 degrees Fahrenheit, pulse is 123 beats per minute, blood pressure is 115/87, respirations 24 per minute, O2 saturations are 98% on BiPAP with FIO2 of 40%. HEENT: Head is atraumatic, normocephalic. Pupils are equal, round, regular, reactive to light and accommodation. Extraocular movements are normal. There is no conjunctival pallor. There is no scleral icterus. ENT is negative. NECK: Supple. There is no JVD. Carotids are equal and there is no bruit. There is no goiter. Trachea is central. LUNGS: Show diminished air entry and prolonged expiration. On auscultation, there is scattered rhonchi and a few wheezing. There is no rales or CHF. On percussion, there is hyperresonance throughout. HEART: S1, S2 is heard. S1 is of variable intensity. There is no S3 gallop. There is no S4 gallop. There is a systolic murmur at the left sternal border of the apex. There is no rub. ABDOMEN: Soft, nontender. There is no hepatosplenomegaly. Bowel sounds are well heard. EXTREMITIES: Femorals are diminished. Leg pulses are diminished. There is no pedal edema. There is no DVT or cellulitis. There is no femoral bruits. There is no cyanosis or clubbing. CENTRAL NERVOUS SYSTEM: The patient is conscious, confused but no focal deficits. PSYCHIATRIC: The patient does not appear to be anxious or agitated. Note, that the patient's altered mental status is slightly improved. The patient's 24-hour intake is 1462 mL and output is 550 mL. The patient's EKG shows atrial flutter/fibrillation, left anterior fascicular block. The patient's sodium is 140.2, potassium is 4.8, chloride is 100, CO2 is 35. The patient's BUN is 32, creatinine 0.*------*, GFR is greater than 60. His glucose is 138, his calcium is 9.3, his magnesium is 2.2. His troponin I yesterday at 10:34 in the morning was negative at 0.030. The patient's venous pH is 7.32, his PCO2 is 72.5 and his bicarbonate is 36.5. His base excess is 7.8. IMPRESSION: 1. ALTERED MENTAL STATUS MOST LIKELY SECONDARY TO INFECTION AND ACUTE EXACERBATION OF CHRONIC OBSTRUCTIVE PULMONARY DISEASE. 2. ATRIAL FLUTTER/FIBRILLATION. At present, heart rate uncontrolled and, hence, will increase the Cardizem from 2.5 mg/hour to 5 mg/hour and possibly more higher if necessary. The patient also is on Lovenox 90 mg subcutaneously q.12 h. There is no bleeding on Lovenox. There is no transient ischemic attack or cerebrovascular accident symptoms. Later will discuss with the patient's and probably put him on Eliquis 2.5 mg p.o. b.i.d. 3. ACUTE ON CHRONIC RESPIRATORY FAILURE WITH HYPERCAPNIA. 4. RIGHT LOWER LOBE PNEUMONIA. 5. COPD WITH ACUTE EXACERBATION. 6. ABNORMAL LIVER FUNCTION TESTS. Will recheck LFTs again in the morning. RECOMMENDATIONS: 1. Continue antibiotics. 2. Continue anti COPD treatment. Continue the Cardizem at 5 mg per hour and increase as needed to keep the heart rate below 90. Also continue nebulizer treatment. Continue steroids. Will follow with you. Note, 35 minutes spent with the patient and more than 50% of the time was spent on direct patient care and also discussions with the patient who I am not sure understands what I am saying and also discussions with the hospitalist on the case. Will follow with you. Thanking you. DICTATING PHYSICIAN: TAMERA ESPOSITO M.D. [id number] PHY#: [id number] ID: [id number] JOB#: [id number] ACCT: [id number] cc: >
[2016-02-29] MEDS: AZITHROMYCIN 500 MG in DEXTROSE 5%-WATER 250 ML IV SCH (23:29)
[2016-02-29] MEDS: MONTELUKAST SODIUM 10 MG TABLET PO SCH (23:30)
[2016-03-01 05:08] LABS: HEMATOCRIT 37.8 % (37.9-51.0); HEMOGLOBIN 12.6 g/dL (13.5-17.0); MEAN CORPUSCULAR HEMOGLOBIN 33.5 pg (27.0-33.4); MEAN CORPUSCULAR HGB CONC 33.3 g/dL (32.0-36.0); MEAN CORPUSCULAR VOLUME 101 fl (80-97); RED BLOOD COUNT 3.76 10^6/uL (4.35-5.55); RED CELL DISTRIBUTION WIDTH 13.3 % (11.5-14.0); WHITE BLOOD COUNT 8.4 10^3/uL (4.0-10.5)
[2016-03-01 05:32] LABS: ANION GAP 5 (5-19); BLOOD UREA NITROGEN 37 mg/dL (7-20); CALCIUM 9.3 mg/dL (8.4-10.2); CARBON DIOXIDE 38 mmol/L (22-30); CHLORIDE 100 mmol/L (98-107); CREATININE RESULT 0.79 mg/dL (0.52-1.25); GLUCOSE 109 mg/dL (75-110); MAGNESIUM 2.3 mg/dL (1.6-2.3); POTASSIUM 4.8 mmol/L (3.6-5.0); SODIUM 142.9 mmol/L (137-145)
[2016-03-01] MEDS: LANSOPRAZOLE 30 MG TAB.RAP.DR PO SCH (06:00)
[2016-03-01] MEDS: LEVALBUTEROL HCL NEB 1.25 MG/3 ML AMPUL NEB SCH (07:34)
[2016-03-01] MEDS: PREDNISONE 20 MG TABLET PO SCH (09:36)
[2016-03-01] MEDS: GUAIFENESIN 600 MG TABLET.SA PO SCH ×2 (09:36→22:45)
[2016-03-01] MEDS: CEFTRIAXONE 1 GM/D5W RTU 1 GM/50 ML RTUPB IV SCH (09:37)
[2016-03-01] MEDS: BUDESONIDE/FORMOTEROL 160-4.5 MCG 60 PUFF/6 GM MDI IH SCH (09:37)
[2016-03-01] MEDS: TIOTROPIUM BROMIDE DPI 5 CAP/KIT (18 MCG/CAP) IH SCH (09:38)
[2016-03-01] MEDS: ENOXAPARIN SODIUM INJ 100 MG/1 ML DISP.SYRIN SUBCUT SCH (09:38)
--- NOTE | 2016-03-01 11:07 | PDOC PROGRESS REPORT ---
Subjective Progress Note for:: 03/01/16 Subjective:: The patient was seen earlier today on rounds. The patient was lying in bed. The patient is not a reliable historian at this point in time. The patient has remained afebrile. Blood pressures have been in a good range. The patient's Cardizem drip has been stopped and he has been started on oral medications. The patient's been seen by cardiology today. The patient states that he has discussed rehabilitation with his however I'm uncertain how reliable this is. I discussed Eliquis with the patient and the risks for bleeding and lack of reversal will reiterate this once again with this patient's . When prompted the patient voices no other concerns at this time. Review of systems: The rest of the review of systems is negative. Physical Exam Vital Signs: Temp Pulse Resp BP Pulse Ox 97.8 F 78 14 114/80 97 03/01/16 08:42 03/01/16 07:33 03/01/16 08:42 03/01/16 09:02 03/01/16 08:42 Intake & Output 02/28/16 02/29/16 03/01/16 23:59 23:59 23:59 Intake Total 477 1822 1120 Output Total 770 700 Balance 477 1052 420 Weight 90.4 kg 94.6 kg 96.3 kg General appearance: PRESENT: no acute distress, cooperative, well-developed - Frail-appearing Head exam: PRESENT: atraumatic, normocephalic Eye exam: PRESENT: conjunctiva pink, EOMI, PERRLA. ABSENT: scleral icterus Ear exam: PRESENT: normal external ear exam Mouth exam: PRESENT: moist, tongue midline Neck exam: ABSENT: carotid bruit, JVD, lymphadenopathy, thyromegaly Respiratory exam: PRESENT: decreased breath sounds. ABSENT: rales, rhonchi, wheezes Cardiovascular exam: PRESENT: Irregularly irregular. ABSENT: diastolic murmur, rubs, systolic murmur Pulses: PRESENT: normal dorsalis pedis pul Vascular exam: PRESENT: normal capillary refill GI/Abdominal exam: PRESENT: normal bowel sounds, soft. ABSENT: distended, guarding, mass, organolmegaly, rebound, tenderness Rectal exam: PRESENT: deferred Extremities exam: PRESENT: full ROM. ABSENT: calf tenderness, clubbing, pedal edema Neurological exam: PRESENT: alert - A little delayed, awake, oriented to person , oriented to place. ABSENT: motor sensory deficit Psychiatric exam: PRESENT: flat affect, normal mood demented affect. ABSENT: homicidal ideation, suicidal ideation Skin exam: PRESENT: dry, intact, warm. ABSENT: cyanosis, rash Results Laboratory Results: 03/01/16 04:37 03/01/16 04:37 03/01/16 03/01/16 04:37 04:37 WBC 8.4 RBC 3.76 L Hgb 12.6 L Hct 37.8 L MCV 101 H MCH 33.5 H MCHC 33.3 RDW 13.3 Plt Count 135 L Sodium 142.9 Potassium 4.8 Chloride 100 Carbon Dioxide 38 H Anion Gap 5 BUN 37 H Creatinine 0.79 Est GFR ( Amer) > 60 Est GFR (Non-Af Amer) > 60 Glucose 109 Calcium 9.3 Magnesium 2.3 02/28/16 02/28/16 07:34 07:34 Creatine Kinase < 20 L CK-MB (CK-2) 1.41 Troponin I 0.030 Impressions: Chest X-Ray 02/27/16 16:38 IMPRESSION: LOWER LOBE AIRSPACE DISEASE SEEN ON LATERAL VIEW ONLY SUGGESTIVE OF PNEUMONIA. RECOMMEND FOLLOWUP RADIOGRAPHS 4 TO 6 WEEKS TO ENSURE RESOLUTION. [facility] 02/28[facility] 01:18 IMPRESSION: Severe nonspecific diffuse diminished ventilation. NEGATIVE FOR PULMONARY EMBOLI. Assessment & Plan - Diagnosis (1) LLL pneumonia Qualifiers: Pneumonia type: due to unspecified organism Qualified Code(s): J18.1 - Lobar pneumonia, unspecified organism Is this a current diagnosis for this admission?: YesPlan: Will repeat chest x-ray in the a.m. the patient does need a lateral view of this. 02/28/16 01:23 INSPO [RESPCARE] RTBID 02/28/16 10:00 Ceftriaxone 1 gm/D5w RTU [Rocephin RTU 1 gm/D5w 50 ml Premix] 1 gm in 50 ml IV DAILY 02/28/16 22:00 Azithromycin [Zithromax Inj 500 mg Vial] 500 mg Dextrose 5%-Water [D5w 250 ml IV Soln] 250 ml IV QHS Guaifenesin [Mucinex Sr 600 mg Tablet.sa] 1,200 mg PO Q12 (2) Acute and chronic respiratory failure with hypercapnia Is this a current diagnosis for this admission?: YesPlan: Secondary to the above. 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 Will encourage the BiPAP when the patient is not eating and repeat gases in the a.m. 02/28/16 10:31 BIPAP [RESPCARE] RTPRN (3) COPD exacerbation Is this a current diagnosis for this admission?: YesPlan: VQ scan was suggestive of diffuse disease but no evidence of PE. Will continue home medications and follow. Will decrease nebulizer. 02/28/16 10:00 Prednisone [Deltasone 20 mg Tablet] 60 mg PO DAILY 02/28/16 10:56 Levalbuterol HCl [Xopenex Neb 0.63 mg/3 ml Ampul] 0.63 mg NEB [id number] PRN Nebulizer Therapy Routine [RESPCARE] [id number] 02/28/16 14:00 Levalbuterol HCl [Xopenex Neb 1.25 mg/3 ml Ampul] 1.25 mg NEB [id number] 02/28/16 15:45 Flutter [PEP Device(PositiveExpiratory)] [RESPCARE] 02/28/16 22:00 Guaifenesin [Mucinex Sr 600 mg Tablet.sa] 1,200 mg PO Q12 (4) Atrial flutter with rapid ventricular response Is this a current diagnosis for this admission?: YesPlan: Do appreciate cardiology input with this. 02/27/16 23:25 Diltiazem HCl/D5w [Cardizem RTU Inj 125 mg-D5w 125 ml Premix] 125 ml IV CONTINUOUS 02/28/16 07:30 Physician [CONS] Timed Selected Entries 02/28/16 22:00 Enoxaparin Sodium [Lovenox Inj 100 mg/1 ml Disp.syrin] 90 mg SUBCUT Q12 (5) Congestive heart failure Qualifiers: Congestive heart failure type: unspecified congestive heart failure type Congestive heart failure chronicity: unspecified congestive heart failure chronicity Qualified Code(s): I50.9 - Heart failure, unspecified Is this a current diagnosis for this admission?: YesPlan: Do appreciate cardiology input with this. Will further classify at later time given that the [place] system at this computer will not open other reports for me to read such as echocardiogram or cardiology's note. (6) Elevated LFTs Is this a current diagnosis for this admission?: YesPlan: 02/28/16 07:34 AST 28 ALT 73 H (7) History of DVT (deep vein thrombosis) Is this a current diagnosis for this admission?: Yes - Time Time Spent with patient: on this followup including assessment, plan, physical examination, and attempted patient education is 25 minutes. Time Spent with patient: 25-34 minutes Medications reviewed and adjusted accordingly: Yes Anticipated discharge: SNF Within: when bed available Disposition: The patient is a DO NOT RESUSCITATE DO NOT INTUBATE. Pending patient's symptomatology and diagnostic findings will reevaluate as needed.
[2016-03-01 11:47] LABS: VENOUS BLOOD BASE EXCESS 8.9 mmol/L; VENOUS BLOOD HCO3 36.7 mmol/L (20-32); VENOUS BLOOD PH 7.36 (7.30-7.42)
[2016-03-01 11:54] LABS: VENOUS BLOOD PCO2 65.8 mmHg (35-63)
[2016-03-01] MEDS ORDERED: DILTIAZEM HCL 120 MG CAP.SR.24H PO ONE (12:00)
[2016-03-01] MEDS: APIXABAN 2.5 MG TABLET PO SCH (18:49)
--- NOTE | 2016-03-01 18:53 | PROGRESS NOTE E ---
Progress Note NAME: SILVESTRE DELGADILLO : 1930 AGE: 86Y DATE: 03/01/2016 ROOM: 308 SUBJECTIVE: Note that the patient does not appear to be short of breath. He is off the BiPAP. He is in atrial fibrillation still but with a controlled ventricular response. He is on 10 mg/hour of Cardizem infusion. He does not have any orthopnea, PND or leg edema. He denies any chest pain. There are no TIA or CVA symptoms. The patient is not agitated. OBJECTIVE: GENERAL: On examination, he is well built and appears to be well nourished in no respiratory distress. VITAL SIGNS: He is afebrile with a temperature of 97.8 degrees Fahrenheit, pulse of 85 beats per minute (irregularly irregular), blood pressure is 114/80, respirations are 14 per minute, O2 saturations are 97% on 5 L nasal cannula. HEENT: Head is atraumatic, normocephalic. Eyes: Pupils are equal, round, regular, reactive to light and accommodation. Extraocular movements are normal. There is no conjunctival pallor. There is no scleral icterus. ENT is negative. NECK: Supple. There is no JVD. Carotids are equal and there is no bruit. There is no goiter. Trachea is central. LUNGS: Show diminished air entry and prolonged expiration with few scattered rhonchi. There is no wheezing today. There are no rales or CHF. On percussion, there is hyperresonance throughout. HEART: S1, S2 is heard. S1 is of variable intensity. There is no S3 gallop. There is no S4 gallop. There is a systolic murmur in the left sternal border and the apex. There is no rub. ABDOMEN: Soft, nontender. There is no hepatosplenomegaly. Bowel sounds are well heard. EXTREMITIES: Femorals are diminished. Leg pulses are diminished. There is no pedal edema. There is no DVT or cellulitis. There are no femoral bruits. CENTRAL NERVOUS SYSTEM: The patient is conscious. He is less confused than yesterday with no focal deficits. PSYCHIATRIC: The patient does not appear to be agitated or depressed. DIAGNOSTIC DATA: The patient's white count is 8400, hemoglobin 12.6, hematocrit 37.8, and platelet count is 135,000. The patient's sodium is 142.9, potassium 4.8, chloride 100, CO2 28, BUN 37, creatinine 0.79, GRF greater than 60, glucose is 109, calcium 9.3, magnesium is 2.3. The patient's venous blood gas shows pH of 7.36, PCO2 is elevated at 65.8, and his base excess is 36.7. IMPRESSION: 1. ALTERED MENTAL STATUS MOST LIKELY SECONDARY TO INFECTION AND ACUTE EXACERBATION OF CHRONIC OBSTRUCTIVE PULMONARY DISEASE. Much improved. 2. ATRIAL FLUTTER/FIBRILLATION. At present, heart rate controlled. Will stop the patient's Cardizem drip and start the patient on Cardizem CD 120 mg p.o. q.12 h. 3. ACUTE ON CHRONIC RESPIRATORY FAILURE WITH HYPERCAPNIA. 4. RIGHT LOWER LOBE PNEUMONIA. The patient is on antibiotics. 5. COPD WITH ACUTE EXACERBATION. 6. ABNORMAL LIVER FUNCTION TESTS. Will recheck LFTs again in the morning. RECOMMENDATIONS: 1. Continue antibiotics. 2. Continue anti COPD treatment. 3. Continue Cardizem. 4. Continue the patient on Lovenox at 90 mg subcutaneously q.12 h. 5. Continue steroids. 6. Will discuss with the to see if the patient can be placed on Eliquis 2.5 mg p.o. b.i.d. 7. Discussed with the patient and discussed with the hospitalist. NOTE: Thirty-five minutes spent on this patient with more than 50% of the time spent on direct patient care and also reviewing the patient's medications and adjusting and stopping medications and instituting new medications. Will follow with you. Thanking you. DICTATING PHYSICIAN: TAMERA ESPOSITO M.D. [id number] PHY#: [id number] ID: [id number] JOB#: [id number] ACCT: [id number] cc: >
[2016-03-01] MEDS ORDERED: DILTIAZEM HCL 120 MG CAP.SR.24H PO SCH (22:00)
[2016-03-01] MEDS: AZITHROMYCIN 250 MG TABLET PO SCH (22:43)
[2016-03-01] MEDS: MONTELUKAST SODIUM 10 MG TABLET PO SCH (22:45)
[2016-03-02] MEDS: BUDESONIDE/FORMOTEROL 160-4.5 MCG 60 PUFF/6 GM MDI IH SCH ×3 (01:20→22:20)
[2016-03-02 04:05] LABS: HEMOGLOBIN 12.6 g/dL (13.5-17.0); HGB HCT DIFFERENCE -0.2; MEAN CORPUSCULAR HEMOGLOBIN 33.4 pg (27.0-33.4); MEAN CORPUSCULAR HGB CONC 33.3 g/dL (32.0-36.0); MEAN CORPUSCULAR VOLUME 101 fl (80-97); RED BLOOD COUNT 3.78 10^6/uL (4.35-5.55); RED CELL DISTRIBUTION WIDTH 13.3 % (11.5-14.0); WHITE BLOOD COUNT 7.9 10^3/uL (4.0-10.5)
[2016-03-02 04:11] LABS: VENOUS BLOOD BASE EXCESS 12.1 mmol/L; VENOUS BLOOD HCO3 41.4 mmol/L (20-32); VENOUS BLOOD PH 7.34 (7.30-7.42)
[2016-03-02 04:12] LABS: VENOUS BLOOD PCO2 79.4 mmHg (35-63)
[2016-03-02 04:20] LABS: ANION GAP 5 (5-19); BLOOD UREA NITROGEN 31 mg/dL (7-20); CALCIUM 9.3 mg/dL (8.4-10.2); CARBON DIOXIDE 37 mmol/L (22-30); CHLORIDE 99 mmol/L (98-107); CREATININE RESULT 0.66 mg/dL (0.52-1.25); GLUCOSE 111 mg/dL (75-110); MAGNESIUM 2.1 mg/dL (1.6-2.3); POTASSIUM 4.9 mmol/L (3.6-5.0); SODIUM 140.6 mmol/L (137-145)
[2016-03-02] MEDS: LANSOPRAZOLE 30 MG TAB.RAP.DR PO SCH (05:52)
[2016-03-02] MEDS ORDERED: DILTIAZEM HCL INJ 25 MG/5 ML VIAL IV ONE ×2 (10:21→13:00)
[2016-03-02] MEDS ORDERED: PREDNISONE 20 MG TABLET PO SCH (11:26)
[2016-03-02] MEDS: GUAIFENESIN 600 MG TABLET.SA PO SCH ×2 (11:29→22:20)
[2016-03-02] MEDS: APIXABAN 2.5 MG TABLET PO SCH ×2 (11:30→18:25)
[2016-03-02] MEDS: TIOTROPIUM BROMIDE DPI 5 CAP/KIT (18 MCG/CAP) IH SCH (11:30)
--- NOTE | 2016-03-02 11:30 | PDOC PROGRESS REPORT ---
Subjective Progress Note for:: 03/02/16 Subjective:: The patient was seen earlier today on rounds. The patient was lying in bed. The patient is not a reliable historian at this point in time. The patient has remained afebrile. Blood pressures have been in a good range. The patient's been seen by cardiology today. When prompted the patient voices no other concerns at this time. Apparently the patient refused to wear the BiPAP last night and was combative. Therefore this morning the patient's PCO2 is still elevated. Review of systems: The rest of the review of systems is negative. Physical Exam Vital Signs: Temp Pulse Resp BP Pulse Ox 97.6 F 63 26 H 144/80 H 95 03/02/16 07:52 03/02/16 07:52 03/02/16 08:00 03/02/16 07:52 03/02/16 08:00 Intake & Output 02/29/16 03/01/16 03/02/16 23:59 23:59 23:59 Intake Total 1822 1720 255 Output Total 770 1100 Balance 1052 620 255 Weight 94.6 kg 96.3 kg 91.1 kg General appearance: PRESENT: no acute distress, cooperative, well-developed - Frail-appearing Head exam: PRESENT: atraumatic, normocephalic Eye exam: PRESENT: conjunctiva pink, EOMI, PERRLA. ABSENT: scleral icterus Ear exam: PRESENT: normal external ear exam Mouth exam: PRESENT: moist, tongue midline Neck exam: ABSENT: carotid bruit, JVD, lymphadenopathy, thyromegaly Respiratory exam: PRESENT: decreased breath sounds. ABSENT: rales, rhonchi, wheezes Cardiovascular exam: PRESENT: Irregularly irregular. ABSENT: diastolic murmur, rubs, systolic murmur Pulses: PRESENT: normal dorsalis pedis pul Vascular exam: PRESENT: normal capillary refill GI/Abdominal exam: PRESENT: normal bowel sounds, soft. ABSENT: distended, guarding, mass, organolmegaly, rebound, tenderness Rectal exam: PRESENT: deferred Extremities exam: PRESENT: full ROM. ABSENT: calf tenderness, clubbing, pedal edema Neurological exam: PRESENT: alert - A little delayed, awake, oriented to person , oriented to place. ABSENT: motor sensory deficit Psychiatric exam: PRESENT: flat affect, normal mood demented affect. ABSENT: homicidal ideation, suicidal ideation Skin exam: PRESENT: dry, intact, warm. ABSENT: cyanosis, rash Results Laboratory Results: 03/02/16 03:54 03/02/16 03:54 03/01/16 03/02/16 03/02/16 11:35 03:54 03:54 WBC 7.9 RBC 3.78 L Hgb 12.6 L Hct 38.0 MCV 101 H MCH 33.4 MCHC 33.3 RDW 13.3 Plt Count 126 L VBG pH 7.36 VBG pCO2 65.8 H* VBG HCO3 36.7 H VBG Base Excess 8.9 Sodium 140.6 Potassium 4.9 Chloride 99 Carbon Dioxide 37 H Anion Gap 5 BUN 31 H Creatinine 0.66 Est GFR ( Amer) > 60 Est GFR (Non-Af Amer) > 60 Glucose 111 H Calcium 9.3 Magnesium 2.1 03/02/16 03:54 WBC RBC Hgb Hct MCV MCH MCHC RDW Plt Count VBG pH 7.34 VBG pCO2 79.4 H* VBG HCO3 41.4 H VBG Base Excess 12.1 Sodium Potassium Chloride Carbon Dioxide Anion Gap BUN Creatinine Est GFR ( Amer) Est GFR (Non-Af Amer) Glucose Calcium Magnesium 02/28/16 02/28/16 07:34 07:34 Creatine Kinase < 20 L CK-MB (CK-2) 1.41 Troponin I 0.030 Impressions: Lung Scan-VQ NM 02/28/16 01:18 IMPRESSION: Severe nonspecific diffuse diminished ventilation. NEGATIVE FOR PULMONARY EMBOLI. Chest X-Ray 03/02/16 06:00 IMPRESSION: NEW SMALL BILATERAL PLEURAL EFFUSIONS. OTHERWISE STABLE APPEARANCE OF THE CHEST. Assessment & Plan - Diagnosis (1) LLL pneumonia Qualifiers: Pneumonia type: due to unspecified organism Qualified Code(s): J18.1 - Lobar pneumonia, unspecified organism Is this a current diagnosis for this admission?: YesPlan: Only findings are consistent with pleural effusions pneumonia appears to have resolved. Will transition to oral antibiotics. 02/28/16 01:23 INSPO [RESPCARE] RTBID 02/28/16 10:00 Ceftriaxone 1 gm/D5w RTU [Rocephin RTU 1 gm/D5w 50 ml Premix] 1 gm in 50 ml IV DAILY 02/28/16 22:00 Azithromycin [Zithromax Inj 500 mg Vial] 500 mg Dextrose 5%-Water [D5w 250 ml IV Soln] 250 ml IV QHS Guaifenesin [Mucinex Sr 600 mg Tablet.sa] 1,200 mg PO Q12 (2) Acute and chronic respiratory failure with hypercapnia Is this a current diagnosis for this admission?: YesPlan: Secondary to the above. 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 Will encourage the BiPAP when the patient is not eating and repeat gases in the a.m. Will add Ativan when necessary that way at night the patient hopefully can tolerate BiPAP. 02/28/16 10:31 BIPAP [RESPCARE] RTPRN (3) COPD exacerbation Is this a current diagnosis for this admission?: YesPlan: VQ scan was suggestive of diffuse disease but no evidence of PE. Will continue home medications and follow. Will decrease nebulizer. 02/28/16 10:00 Prednisone [Deltasone 20 mg Tablet] 60 mg PO DAILY 02/28/16 14:00 Levalbuterol HCl [Xopenex Neb 1.25 mg/3 ml Ampul] 1.25 mg NEB [id number] 02/28/16 15:45 Flutter [PEP Device(PositiveExpiratory)] [RESPCARE] 02/28/16 22:00 Guaifenesin [Mucinex Sr 600 mg Tablet.sa] 1,200 mg PO Q12 (4) Atrial flutter with rapid ventricular response Is this a current diagnosis for this admission?: YesPlan: Do appreciate cardiology input with this. 02/28/16 07:30 Physician [CONS] Timed 03/02/16 11:00 Diltiazem HCl [Cardizem Cd 180 mg Capsule] 180 mg PO Q12 (5) Congestive heart failure Qualifiers: Congestive heart failure type: systolic Congestive heart failure chronicity: acute on chronic Qualified Code(s): I50.23 - Acute on chronic systolic (congestive) heart failure Is this a current diagnosis for this admission?: YesPlan: Do appreciate cardiology input with this. It appears the patient does have a reduced EF of 40-45% suggestive of systolic failure also appears the patient has right ventricle Faler as well. (6) Elevated LFTs Is this a current diagnosis for this admission?: YesPlan: These are trending down can be followed up in outpatient basis. 02/28/16 07:34 AST 28 ALT 73 H (7) History of DVT (deep vein thrombosis) Is this a current diagnosis for this admission?: Yes - Time Time Spent with patient: on this followup including assessment, plan, physical examination, and patient education is 25 minutes. Time Spent with patient: 25-34 minutes Medications reviewed and adjusted accordingly: Yes Anticipated discharge: SNF Within: when bed available Disposition: The patient is a DO NOT RESUSCITATE DO NOT INTUBATE. Pending patient's symptomatology and diagnostic findings will reevaluate as needed.
[2016-03-02] MEDS ORDERED: PREDNISONE 20 MG TABLET PO ONE (13:00)
--- NOTE | 2016-03-02 13:44 | PDOC PROGRESS REPORT ---
Subjective Progress Note for:: 03/02/16 Subjective:: The patient continues to be in atrial fibrillation with ventricular response in the 130s. Note his Cardizem drip was discontinued yesterday and the patient was placed on Cardizem CD 120 mg by mouth every 12 hours. The patient has no bleeding on a course at a dose of 2.5 mg by mouth twice a day rate he denies any chest pain does appear to be short of breath and is on the BiPAP today. Last night he refused to wear the BiPAP and was combative, and his PCO2 was elevated this morning. He denies any chest pain, PND or, but still has some orthopnea. There is no leg edema. There is no TIA or CVA symptoms. Note that the patient is not a very reliable historian. Physical Exam Vital Signs: Temp Pulse Resp BP Pulse Ox 97.4 F 115 H 16 130/92 H 96 03/02/16 11:58 03/02/16 11:58 03/02/16 11:58 03/02/16 11:58 03/02/16 11:58 Intake & Output 03/01/16 03/02/16 03/03/16 06:59 06:59 06:59 Intake Total 1957 855 Output Total 920 400 Balance 1037 455 Weight 96.3 kg 91.1 kg General appearance: PRESENT: no acute distress, well-developed, well-nourished, other - On examination he is well built, and well-nourished. In mild respiratory distress, but wearing the BiPAP Head exam: PRESENT: atraumatic, normocephalic Eye exam: PRESENT: conjunctiva pink, EOMI, PERRLA. ABSENT: scleral icterus Ear exam: PRESENT: normal external ear exam, TM's normal bilaterally Mouth exam: PRESENT: moist, tongue midline Throat exam: PRESENT: other - The patient's throat is without any exudates, and there is no redness of the oropharynx. Neck exam: PRESENT: other - Neck is supple. There is no JVD. Carotids are equal there is no bruit. There is no thyromegaly. Trachea central.. ABSENT: carotid bruit, JVD, lymphadenopathy, thyromegaly Respiratory exam: PRESENT: other - There is no accessory muscles of respiration in use. There is diminished air entry and prolonged expiration, and sputum scattered rhonchi. No definite wheezing. There is hyperresonance on percussion.. ABSENT: rales, rhonchi, wheezes Cardiovascular exam: PRESENT: RRR, other - S1, S2 is heard. S1 is of variable intensity there is no S3 gallop there is no S4 gallop is systolic murmur left sternal border and apex is no rub.. ABSENT: diastolic murmur, rubs, systolic murmur Pulses: PRESENT: normal carotid pulses, normal dorsalis pedis pul, +1 pedal pulses bilateral, other - Femorals are diminished there are no femoral bruit bruits there is no pedal edema. There is no DVT or cellulitis there is no cyanosis or clubbing. Vascular exam: PRESENT: normal capillary refill GI/Abdominal exam: PRESENT: normal bowel sounds, soft. ABSENT: distended, guarding, mass, organolmegaly, rebound, tenderness Rectal exam: PRESENT: deferred Extremities exam: PRESENT: full ROM. ABSENT: calf tenderness, clubbing, pedal edema Musculoskeletal exam: PRESENT: other - There is no acute joint swellings or joint tenderness. There is no redness of the joints. Neurological exam: PRESENT: alert, awake, oriented to person, oriented to place , oriented to time, oriented to situation, CN II-XII grossly intact, other - The patient is awake alert conscious, less confused, and there are no focal deficits. ABSENT: motor sensory deficit Psychiatric exam: PRESENT: appropriate affect, normal mood. ABSENT: homicidal ideation, suicidal ideation Focused psych exam: PRESENT: other - The patient does not appear to be agitated or depressed. Skin exam: PRESENT: dry, intact, warm. ABSENT: cyanosis, rash Results Laboratory Results: 03/02/16 03:54 03/02/16 03:54 03/02/16 03/02/16 03/02/16 03:54 03:54 03:54 WBC 7.9 RBC 3.78 L Hgb 12.6 L Hct 38.0 MCV 101 H MCH 33.4 MCHC 33.3 RDW 13.3 Plt Count 126 L VBG pH 7.34 VBG pCO2 79.4 H* VBG HCO3 41.4 H VBG Base Excess 12.1 Sodium 140.6 Potassium 4.9 Chloride 99 Carbon Dioxide 37 H Anion Gap 5 BUN 31 H Creatinine 0.66 Est GFR ( Amer) > 60 Est GFR (Non-Af Amer) > 60 Glucose 111 H Calcium 9.3 Magnesium 2.1 02/28/16 02/28/16 07:34 07:34 Creatine Kinase < 20 L CK-MB (CK-2) 1.41 Troponin I 0.030 Impressions: Lung Scan-VQ NM 02/28/16 01:18 IMPRESSION: Severe nonspecific diffuse diminished ventilation. NEGATIVE FOR PULMONARY EMBOLI. Chest X-Ray 03/02/16 06:00 IMPRESSION: NEW SMALL BILATERAL PLEURAL EFFUSIONS. OTHERWISE STABLE APPEARANCE OF THE CHEST. Assessment & Plan - Diagnosis (1) Acute and chronic respiratory failure with hypercapnia Is this a current diagnosis for this admission?: YesPlan: Continue anti-COPD treatment and antibiotics. (2) Atrial flutter with rapid ventricular response Is this a current diagnosis for this admission?: YesPlan: Note that the patient has atrial flutter/fibrillation, with somewhat of her rapid ventricular response. Will give the patient Cardizem 5 mg IV push 2 in separate boluses, and increase the patient's Cardizem CD to 180 mg by mouth twice a day. Note that the patient is on [place] quest for prevention of strokes. In view of the patient being started on [place] quest his Lovenox has been discontinued. (3) Elevated LFTs Is this a current diagnosis for this admission?: YesPlan: Note a repeat liver function test was ordered for today, but if it was not done , we'll recheck the liver function tests tomorrow a.m. (4) COPD exacerbation Is this a current diagnosis for this admission?: YesPlan: Continue breathing treatments, and also steroids. Would recommend tapering the patient's steroids. Watch the patient's O2 saturations closely. Recommend intermittent use of BiPAP, if the patient would be cooperative. (5) Congestive heart failure Qualifiers: Congestive heart failure type: systolic Congestive heart failure chronicity: unspecified congestive heart failure chronicity Qualified Code(s): I50.20 - Unspecified systolic (congestive) heart failure Is this a current diagnosis for this admission?: YesPlan: The patient at present is is well compensated and there is no evidence of acute heart failure. (6) LLL pneumonia Qualifiers: Pneumonia type: due to unspecified organism Qualified Code(s): J18.1 - Lobar pneumonia, unspecified organism Is this a current diagnosis for this admission?: YesPlan: Recommend continue antibiotics. (7) History of DVT (deep vein thrombosis) Is this a current diagnosis for this admission?: NoPlan: The patient has a past history of DVT. No recurrence of DVT this admission. The patient is on a course, which should be enough prophylaxis for DVT prevention. (8) Cardiomyopathy Qualifiers: Cardiomyopathy type: unspecified Qualified Code(s): I42.9 - Cardiomyopathy, unspecified Is this a current diagnosis for this admission?: YesPlan: The patient is mildly reduced LV ejection fraction.. The patient has no congestive heart failure present, and is well compensated. We will watch the patient closely for any decompensation. - Notes Notes: Note that the patient is a DO NOT RESUSCITATE/DO NOT INTUBATE. His is his surrogate healthcare decision-maker. - Time Smoking Education Provided: Other - Note 30 minutes spent on this patient, with more than 50% of the time spent in direct patient care. Review of the patient' s medications, and adjusting the patient's medication dosage. And also discussed with the hospitalist taking care of the patient. Will discuss with the when she comes to the patient's room. Discussed with the patient also.
[2016-03-02] MEDS ORDERED: BISACODYL 10 MG SUPP.RECT PR PRN (14:26)
[2016-03-02 15:41] LABS: ALBUMIN 2.7 g/dL (3.5-5.0); BILIRUBIN,TOTAL 0.5 mg/dL (0.2-1.3); TOTAL PROTEIN 4.7 g/dL (6.3-8.2)
[2016-03-02] MEDS: LACTULOSE SYRUP 20 GM/30 ML UDCUP PO SCH ×2 (16:07→18:25)
[2016-03-02] MEDS: LORAZEPAM 0.5 MG TABLET PO PRN (22:04)
[2016-03-02] MEDS: AZITHROMYCIN 250 MG TABLET PO SCH (22:10)
[2016-03-02] MEDS: DILTIAZEM HCL 180 MG CAPSULE.CR PO SCH (22:10)
[2016-03-02] MEDS: MONTELUKAST SODIUM 10 MG TABLET PO SCH (22:20)
[2016-03-03 05:50] LABS: HEMATOCRIT 37.8 % (37.9-51.0); HEMOGLOBIN 12.9 g/dL (13.5-17.0); HGB HCT DIFFERENCE 0.9; MEAN CORPUSCULAR VOLUME 100 fl (80-97); RED BLOOD COUNT 3.79 10^6/uL (4.35-5.55); VENOUS BLOOD BASE EXCESS 12.2 mmol/L; VENOUS BLOOD HCO3 41.1 mmol/L (20-32); VENOUS BLOOD PH 7.36 (7.30-7.42); WHITE BLOOD COUNT 6.9 10^3/uL (4.0-10.5)
[2016-03-03 06:11] LABS: ANION GAP 5 (5-19); BLOOD UREA NITROGEN 29 mg/dL (7-20); CARBON DIOXIDE 39 mmol/L (22-30); CHLORIDE 97 mmol/L (98-107); CREATININE RESULT 0.59 mg/dL (0.52-1.25); GLUCOSE 107 mg/dL (75-110); MAGNESIUM 2.1 mg/dL (1.6-2.3); POTASSIUM 4.8 mmol/L (3.6-5.0); SODIUM 141.1 mmol/L (137-145)
[2016-03-03 06:27] LABS: VENOUS BLOOD PCO2 74.6 mmHg (35-63)
[2016-03-03] MEDS: LANSOPRAZOLE 30 MG TAB.RAP.DR PO SCH (07:23)
[2016-03-03] MEDS: PREDNISONE 20 MG TABLET PO SCH (09:43)
[2016-03-03] MEDS: LISINOPRIL 5 MG TABLET PO SCH (09:44)
[2016-03-03] MEDS: GUAIFENESIN 600 MG TABLET.SA PO SCH ×2 (09:46→22:35)
[2016-03-03] MEDS: APIXABAN 2.5 MG TABLET PO SCH ×2 (09:46→18:03)
[2016-03-03] MEDS: DILTIAZEM HCL 180 MG CAPSULE.CR PO SCH ×2 (09:46→22:36)
[2016-03-03] MEDS: FUROSEMIDE 20 MG TABLET PO SCH (09:46)
[2016-03-03] MEDS: CEFUROXIME 500 MG TABLET PO SCH ×2 (09:46→22:44)
[2016-03-03] MEDS: BUDESONIDE/FORMOTEROL 160-4.5 MCG 60 PUFF/6 GM MDI IH SCH ×2 (09:47→22:44)
[2016-03-03] MEDS: TIOTROPIUM BROMIDE DPI 5 CAP/KIT (18 MCG/CAP) IH SCH (09:47)
--- NOTE | 2016-03-03 11:32 | PDOC PROGRESS REPORT ---
Subjective Progress Note for:: 03/03/16 Subjective:: The patient remains in atrial fibrillation now with controlled ventricular response. His shortness of breath is much better and is off the BiPAP. He denies any chest pain or discomfort there is no palpitations, dizziness or syncope or presyncope. There is no PND or orthopnea. There is no pedal edema. Physical Exam Vital Signs: Temp Pulse Resp BP Pulse Ox 97.3 F 82 18 138/89 H 100 03/03/16 08:09 03/03/16 08:09 03/03/16 08:09 03/03/16 08:09 03/03/16 08:09 Intake & Output 03/02/16 03/03/16 03/04/16 06:59 06:59 06:59 Intake Total 855 852 Output Total 400 Balance 455 852 Weight 91.1 kg 90.4 kg General appearance: PRESENT: no acute distress, well-developed, well-nourished Head exam: PRESENT: atraumatic, normocephalic Eye exam: PRESENT: conjunctiva pink, EOMI, PERRLA, other - There is no scleral icterus. Ear exam: PRESENT: TM's normal bilaterally, other - External auditory canal is clear. Mouth exam: PRESENT: moist, neck supple, tongue midline Throat exam: PRESENT: other - Throat there are no exudates and there is no redness of the oropharynx. Neck exam: PRESENT: other - Neck is supple. There is no lymphadenopathy. Carotids equal there is no carotid bruits. There is no goiter. Trachea is central Respiratory exam: PRESENT: other - There is no accessory muscles of respiration in use. There is prolonged expiration and diminished air entry on auscultation , without any rhonchi rales or wheezing. There is hyperresonance on percussion. There is no chest wall tenderness. Cardiovascular exam: PRESENT: other - S1 and S2 is heard S1 is of variable intensity there is no S3 gallop there is no S4 gallop the systolic murmur left sternal border and apex there is no rub. Pulses: PRESENT: normal carotid pulses, +1 pedal pulses bilateral, other - Femorals are diminished there are no femoral bruits. Vascular exam: PRESENT: other GI/Abdominal exam: PRESENT: soft, other - There is no hepatosplenomegaly. Bowel sounds are well heard. There is no rebound guarding or rigidity. Rectal exam: PRESENT: deferred Extremities exam: PRESENT: other - There is no pedal edema. There is no cyanosis or clubbing. There is no evidence of cellulitis. There is no pedal edema. There is no calf tenderness. Neurological exam: PRESENT: alert, other - The patient is pleasantly confused. There are no focal deficits Focused psych exam: PRESENT: other - The patient does not appear to be agitated or depressed. Detailed psych exam could not be performed due to the patient's disorientation, although the patient is alert. Results Laboratory Results: 03/03/16 05:28 03/03/16 05:28 03/02/16 03/03/16 03/03/16 14:55 05:28 05:28 WBC 6.9 RBC 3.79 L Hgb 12.9 L Hct 37.8 L MCV 100 H MCH 34.0 H MCHC 34.0 RDW 13.0 Plt Count 126 L VBG pH VBG pCO2 VBG HCO3 VBG Base Excess Sodium 141.1 Potassium 4.8 Chloride 97 L Carbon Dioxide 39 H Anion Gap 5 BUN 29 H Creatinine 0.59 Est GFR ( Amer) > 60 Est GFR (Non-Af Amer) > 60 Glucose 107 Calcium 9.0 Magnesium 2.1 Total Bilirubin 0.5 AST 62 H ALT 110 H Alkaline Phosphatase 64 Total Protein 4.7 L Albumin 2.7 L 03/03/16 05:28 WBC RBC Hgb Hct MCV MCH MCHC RDW Plt Count VBG pH 7.36 VBG pCO2 74.6 H* VBG HCO3 41.1 H VBG Base Excess 12.2 Sodium Potassium Chloride Carbon Dioxide Anion Gap BUN Creatinine Est GFR ( Amer) Est GFR (Non-Af Amer) Glucose Calcium Magnesium Total Bilirubin AST ALT Alkaline Phosphatase Total Protein Albumin 02/28/16 02/28/16 07:34 07:34 Creatine Kinase < 20 L CK-MB (CK-2) 1.41 Troponin I 0.030 Impressions: Lung Scan-VQ NM 02/28/16 01:18 IMPRESSION: Severe nonspecific diffuse diminished ventilation. NEGATIVE FOR PULMONARY EMBOLI. Chest X-Ray 03/02/16 06:00 IMPRESSION: NEW SMALL BILATERAL PLEURAL EFFUSIONS. OTHERWISE STABLE APPEARANCE OF THE CHEST. Assessment & Plan - Diagnosis (1) Acute and chronic respiratory failure with hypercapnia Is this a current diagnosis for this admission?: YesPlan: This is improving with current treatment with antibiotics, respiratory treatments, and steroids. (2) Atrial flutter with rapid ventricular response Is this a current diagnosis for this admission?: YesPlan: At present on Cardizem CD 180 mg by mouth twice a day the patient's heart rate is well controlled. Note he is also on a course 2.5 m by mouth twice a day for stroke prevention, and is tolerating it well without any bleeding complications. (3) Elevated LFTs Is this a current diagnosis for this admission?: YesPlan: Still the liver function tests seemed to be elevated, will check the LFTs again tomorrow. If it is still persistent elevation of LFTs then would recommend ultrasound of the abdomen. (4) COPD exacerbation Is this a current diagnosis for this admission?: YesPlan: This is much improved and the patient returned back to baseline. (5) Congestive heart failure Qualifiers: Congestive heart failure type: systolic Congestive heart failure chronicity: unspecified congestive heart failure chronicity Qualified Code(s): I50.20 - Unspecified systolic (congestive) heart failure Is this a current diagnosis for this admission?: YesPlan: At present the patient is well compensated, and there is no symptoms or signs of heart failure. He is well compensated. (6) LLL pneumonia Qualifiers: Pneumonia type: due to unspecified organism Qualified Code(s): J18.1 - Lobar pneumonia, unspecified organism Is this a current diagnosis for this admission?: YesPlan: We will recheck a chest x-ray to make sure that this has resolved. The patient clinically has improved. (7) History of DVT (deep vein thrombosis) Is this a current diagnosis for this admission?: NoPlan: The patient has a past history of DVT. There is no recurrence this admission. Note that the patient's son and requests which should also asked to prevent development of DVT. (8) Cardiomyopathy Qualifiers: Cardiomyopathy type: unspecified Qualified Code(s): I42.9 - Cardiomyopathy, unspecified Is this a current diagnosis for this admission?: YesPlan: The patient with mildly reduced LV ejection fraction. Which could be a result of atrial fibrillation with rapid ventricular response causing rate related cardio myopathy. At present the patient is compensated without any signs of overt heart failure. Would recommend that the patient's heart rate be controlled and recheck the patient's echocardiogram in 3-6 months to see if the LV ejection fraction is improved. - Time Smoking Education Provided: Other - Note 30 minutes spent on this patient. More than 50% of time spent in direct patient care. The patient's medications have been reviewed. Also discussed with the patient in brackets are not sure if he understands] since the is not here at the bedside. Also discussed with the hospitalist taking care of the patient. Aunts. Discharge soon. Note that the patient at present is a nonsmoker. Within: Other - Hopefully the patient be discharged soon.
--- NOTE | 2016-03-03 12:17 | PDOC PROGRESS REPORT ---
Subjective Progress Note for:: 03/03/16 Subjective:: The patient was seen earlier today on rounds. The patient was lying in bed. The patient is not a reliable historian at this point in time. The patient has remained afebrile. Blood pressures have been in a good range. When prompted the patient voices no other concerns at this time. The patient was cooperative overnight and didn't wear the BiPAP however his PCO2 still remains elevated. Review of systems: The rest of the review of systems is negative. Physical Exam Vital Signs: Temp Pulse Resp BP Pulse Ox 97.3 F 82 18 138/89 H 100 03/03/16 08:09 03/03/16 08:09 03/03/16 08:09 03/03/16 08:09 03/03/16 08:09 Intake & Output 03/01/16 03/02/16 03/03/16 23:59 23:59 23:59 Intake Total 1720 775 332 Output Total 1100 Balance 620 775 332 Weight 96.3 kg 91.1 kg 90.4 kg General appearance: PRESENT: no acute distress, cooperative, well-developed - Frail-appearing Head exam: PRESENT: atraumatic, normocephalic Eye exam: PRESENT: conjunctiva pink, EOMI, PERRLA. ABSENT: scleral icterus Ear exam: PRESENT: normal external ear exam Mouth exam: PRESENT: moist, tongue midline Neck exam: ABSENT: carotid bruit, JVD, lymphadenopathy, thyromegaly Respiratory exam: PRESENT: decreased breath sounds. ABSENT: rales, rhonchi, wheezes Cardiovascular exam: PRESENT: Irregularly irregular. ABSENT: diastolic murmur, rubs, systolic murmur Pulses: PRESENT: normal dorsalis pedis pul Vascular exam: PRESENT: normal capillary refill GI/Abdominal exam: PRESENT: normal bowel sounds, soft. ABSENT: distended, guarding, mass, organolmegaly, rebound, tenderness Rectal exam: PRESENT: deferred Extremities exam: PRESENT: full ROM. ABSENT: calf tenderness, clubbing, pedal edema Neurological exam: PRESENT: alert - A little delayed, awake, oriented to person , oriented to place. ABSENT: motor sensory deficit Psychiatric exam: PRESENT: flat affect, normal mood demented affect. ABSENT: homicidal ideation, suicidal ideation Skin exam: PRESENT: dry, intact, warm. ABSENT: cyanosis, rash Results Laboratory Results: 03/03/16 05:28 03/03/16 05:28 03/02/16 03/03/16 03/03/16 14:55 05:28 05:28 WBC 6.9 RBC 3.79 L Hgb 12.9 L Hct 37.8 L MCV 100 H MCH 34.0 H MCHC 34.0 RDW 13.0 Plt Count 126 L VBG pH VBG pCO2 VBG HCO3 VBG Base Excess Sodium 141.1 Potassium 4.8 Chloride 97 L Carbon Dioxide 39 H Anion Gap 5 BUN 29 H Creatinine 0.59 Est GFR ( Amer) > 60 Est GFR (Non-Af Amer) > 60 Glucose 107 Calcium 9.0 Magnesium 2.1 Total Bilirubin 0.5 AST 62 H ALT 110 H Alkaline Phosphatase 64 Total Protein 4.7 L Albumin 2.7 L 03/03/16 05:28 WBC RBC Hgb Hct MCV MCH MCHC RDW Plt Count VBG pH 7.36 VBG pCO2 74.6 H* VBG HCO3 41.1 H VBG Base Excess 12.2 Sodium Potassium Chloride Carbon Dioxide Anion Gap BUN Creatinine Est GFR ( Amer) Est GFR (Non-Af Amer) Glucose Calcium Magnesium Total Bilirubin AST ALT Alkaline Phosphatase Total Protein Albumin 02/28/16 02/28/16 07:34 07:34 Creatine Kinase < 20 L CK-MB (CK-2) 1.41 Troponin I 0.030 Impressions: Lung Scan-VQ NM 02/28/16 01:18 IMPRESSION: Severe nonspecific diffuse diminished ventilation. NEGATIVE FOR PULMONARY EMBOLI. Chest X-Ray 03/02/16 06:00 IMPRESSION: NEW SMALL BILATERAL PLEURAL EFFUSIONS. OTHERWISE STABLE APPEARANCE OF THE CHEST. Assessment & Plan - Diagnosis (1) LLL pneumonia Qualifiers: Pneumonia type: due to unspecified organism Qualified Code(s): J18.1 - Lobar pneumonia, unspecified organism Is this a current diagnosis for this admission?: YesPlan: findings are consistent with pleural effusions pneumonia appears to have resolved. As tolerated the transition to oral antibiotics. (2) Acute and chronic respiratory failure with hypercapnia Is this a current diagnosis for this admission?: YesPlan: Secondary to the above. 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 Will encourage the BiPAP when the patient is not eating and repeat gases in the a.m. Will add Ativan when necessary that way at night the patient hopefully can tolerate BiPAP. Will consult pulmonology for additional input. 02/28/16 10:31 BIPAP [RESPCARE] RTPRN (3) COPD exacerbation Is this a current diagnosis for this admission?: YesPlan: VQ scan was suggestive of diffuse disease but no evidence of PE. Will continue home medications and follow. Will decrease nebulizer. 02/28/16 10:00 Prednisone [Deltasone 20 mg Tablet] 60 mg PO DAILY 02/28/16 14:00 Levalbuterol HCl [Xopenex Neb 1.25 mg/3 ml Ampul] 1.25 mg NEB [id number] 02/28/16 15:45 Flutter [PEP Device(PositiveExpiratory)] [RESPCARE] 02/28/16 22:00 Guaifenesin [Mucinex Sr 600 mg Tablet.sa] 1,200 mg PO Q12 (4) Atrial flutter with rapid ventricular response Is this a current diagnosis for this admission?: YesPlan: Do appreciate cardiology input with this. 02/28/16 07:30 Physician [CONS] Timed 03/02/16 11:00 Diltiazem HCl [Cardizem Cd 180 mg Capsule] 180 mg PO Q12 (5) Congestive heart failure Qualifiers: Congestive heart failure type: systolic Congestive heart failure chronicity: unspecified congestive heart failure chronicity Qualified Code(s): I50.20 - Unspecified systolic (congestive) heart failure Is this a current diagnosis for this admission?: YesPlan: Do appreciate cardiology input with this. It appears the patient does have a reduced EF of 40-45% suggestive of systolic failure also appears the patient has right ventricle failure as well. (6) Elevated LFTs Is this a current diagnosis for this admission?: YesPlan: Appear to wax and wane will obtain right upper quadrant ultrasound. (7) History of DVT (deep vein thrombosis) Is this a current diagnosis for this admission?: No (8) DVT prophylaxis Is this a current diagnosis for this admission?: YesPlan: The patient's on Eliquis - Time Time Spent with patient: on this followup including assessment, plan, physical examination, and patient education is 25 minutes. Time Spent with patient: 25-34 minutes Medications reviewed and adjusted accordingly: Yes Anticipated discharge: SNF Within: when bed available Disposition: The patient is a DO NOT RESUSCITATE DO NOT INTUBATE. Pending patient's symptomatology and diagnostic findings will reevaluate as needed.
[2016-03-03] MEDS: LORAZEPAM 0.5 MG TABLET PO PRN (15:20)
[2016-03-03] MEDS: AZITHROMYCIN 250 MG TABLET PO SCH (22:35)
[2016-03-03] MEDS: MONTELUKAST SODIUM 10 MG TABLET PO SCH (22:35)
[2016-03-04 04:44] LABS: HEMATOCRIT 37.3 % (37.9-51.0); HEMOGLOBIN 12.4 g/dL (13.5-17.0); HGB HCT DIFFERENCE -0.1; MEAN CORPUSCULAR HEMOGLOBIN 33.6 pg (27.0-33.4); MEAN CORPUSCULAR HGB CONC 33.4 g/dL (32.0-36.0); MEAN CORPUSCULAR VOLUME 101 fl (80-97); RED BLOOD COUNT 3.71 10^6/uL (4.35-5.55); RED CELL DISTRIBUTION WIDTH 13.2 % (11.5-14.0); WHITE BLOOD COUNT 8.2 10^3/uL (4.0-10.5)
[2016-03-04 05:09] LABS: ALANINE AMINOTRANSFERASE 86 U/L (21-72); ALBUMIN 2.2 g/dL (3.5-5.0); ALKALINE PHOSPHATASE 51 U/L (38-126); ANION GAP 7 (5-19); ASPARTATE AMINO TRANSFERASE 27 U/L (17-59); BILIRUBIN,TOTAL 0.3 mg/dL (0.2-1.3); BLOOD UREA NITROGEN 31 mg/dL (7-20); CALCIUM 8.3 mg/dL (8.4-10.2); CARBON DIOXIDE 38 mmol/L (22-30); CHLORIDE 94 mmol/L (98-107); CREATININE RESULT 0.66 mg/dL (0.52-1.25); GLUCOSE 102 mg/dL (75-110); MAGNESIUM 1.9 mg/dL (1.6-2.3); POTASSIUM 4.7 mmol/L (3.6-5.0); SODIUM 139.1 mmol/L (137-145); TOTAL PROTEIN 4.1 g/dL (6.3-8.2)
[2016-03-04] MEDS: LANSOPRAZOLE 30 MG TAB.RAP.DR PO SCH (05:14)
[2016-03-04 06:40] LABS: ARTERIAL BLOOD BASE EXCESS 17.2 mmol/L; ARTERIAL BLOOD O2 SATURATION 97.2 % (94-98)
[2016-03-04] MEDS: PREDNISONE 20 MG TABLET PO SCH (10:44)
[2016-03-04] MEDS: LISINOPRIL 5 MG TABLET PO SCH (10:44)
[2016-03-04] MEDS: APIXABAN 2.5 MG TABLET PO SCH ×2 (10:44→18:24)
[2016-03-04] MEDS: GUAIFENESIN 600 MG TABLET.SA PO SCH ×2 (10:45→21:05)
[2016-03-04] MEDS: DILTIAZEM HCL 180 MG CAPSULE.CR PO SCH ×2 (10:46→21:04)
[2016-03-04] MEDS: FUROSEMIDE 20 MG TABLET PO SCH (10:46)
[2016-03-04] MEDS: CEFUROXIME 500 MG TABLET PO SCH ×2 (10:46→21:05)
[2016-03-04] MEDS: TIOTROPIUM BROMIDE DPI 5 CAP/KIT (18 MCG/CAP) IH SCH (10:47)
[2016-03-04] MEDS: BUDESONIDE/FORMOTEROL 160-4.5 MCG 60 PUFF/6 GM MDI IH SCH ×2 (10:47→21:04)
[2016-03-04] MEDS ORDERED: DIGOXIN 0.25 MG TABLET PO ONE (11:00)
[2016-03-04] MEDS ORDERED: DIGOXIN INJ 0.5 MG/2 ML AMPULE IV ONE (11:00)
--- NOTE | 2016-03-04 15:26 | PDOC PROGRESS REPORT ---
Subjective Progress Note for:: 03/04/16 Subjective:: The patient was seen earlier today on rounds. The patient was lying in bed. is present at the bedside and active in the patient's care. The patient is not a reliable historian at this point in time. The patient has remained afebrile. Blood pressures have been in a good range. When prompted the patient voices no other concerns at this time. The patient was cooperative overnight and didn't wear the BiPAP however his PCO2 still remains elevated. The patient has been seen by pulmonology and input is pending. Review of systems: The rest of the review of systems is negative. Physical Exam Vital Signs: Temp Pulse Resp BP Pulse Ox 97.5 F 118 H 20 139/91 H 96 03/04/16 11:16 03/04/16 11:16 03/04/16 11:16 03/04/16 11:16 03/04/16 11:16 Intake & Output 03/02/16 03/03/16 03/04/16 23:59 23:59 23:59 Intake Total 775 1416 605 Output Total 150 Balance 775 1266 605 Weight 91.1 kg 90.4 kg 93 kg General appearance: PRESENT: no acute distress, cooperative, well-developed - Frail-appearing Head exam: PRESENT: atraumatic, normocephalic Eye exam: PRESENT: conjunctiva pink, EOMI, PERRLA. ABSENT: scleral icterus Ear exam: PRESENT: normal external ear exam Mouth exam: PRESENT: moist, tongue midline Neck exam: ABSENT: carotid bruit, JVD, lymphadenopathy, thyromegaly Respiratory exam: PRESENT: decreased breath sounds. ABSENT: rales, rhonchi, wheezes Cardiovascular exam: PRESENT: Irregularly irregular. ABSENT: diastolic murmur, rubs, systolic murmur Pulses: PRESENT: normal dorsalis pedis pul Vascular exam: PRESENT: normal capillary refill GI/Abdominal exam: PRESENT: normal bowel sounds, soft. ABSENT: distended, guarding, mass, organolmegaly, rebound, tenderness Rectal exam: PRESENT: deferred Extremities exam: PRESENT: full ROM. ABSENT: calf tenderness, clubbing, pedal edema Neurological exam: PRESENT: alert - A little delayed, awake, oriented to person , oriented to place. ABSENT: motor sensory deficit Psychiatric exam: PRESENT: flat affect, normal mood demented affect. ABSENT: homicidal ideation, suicidal ideation Skin exam: PRESENT: dry, intact, warm. ABSENT: cyanosis, rash Results Laboratory Results: 03/04/16 04:03 03/04/16 04:03 03/04/16 03/04/16 03/04/16 04:03 04:03 06:25 WBC 8.2 RBC 3.71 L Hgb 12.4 L Hct 37.3 L MCV 101 H MCH 33.6 H MCHC 33.4 RDW 13.2 Plt Count 118 L Carbonic Acid 2.23 H HCO3/H2CO3 Ratio 20:1 ABG pH 7.41 ABG pCO2 74.1 H* ABG pO2 98.4 ABG HCO3 45.7 H ABG O2 Saturation 97.2 ABG Base Excess 17.2 FiO2 40% Sodium 139.1 Potassium 4.7 Chloride 94 L Carbon Dioxide 38 H Anion Gap 7 BUN 31 H Creatinine 0.66 Est GFR ( Amer) > 60 Est GFR (Non-Af Amer) > 60 Glucose 102 Calcium 8.3 L Magnesium 1.9 Total Bilirubin 0.3 AST 27 ALT 86 H Alkaline Phosphatase 51 Total Protein 4.1 L Albumin 2.2 L 02/28/16 02/28/16 07:34 07:34 Creatine Kinase < 20 L CK-MB (CK-2) 1.41 Troponin I 0.030 Impressions: Lung Scan-VQ NM 02/28/16 01:18 IMPRESSION: Severe nonspecific diffuse diminished ventilation. NEGATIVE FOR PULMONARY EMBOLI. Chest X-Ray 03/04/16 11:00 IMPRESSION: Stable chest. As above. Assessment & Plan - Diagnosis (1) LLL pneumonia Qualifiers: Pneumonia type: due to unspecified organism Qualified Code(s): J18.1 - Lobar pneumonia, unspecified organism Is this a current diagnosis for this admission?: YesPlan: findings are consistent with pleural effusions. Pneumonia appears to have resolved. Has tolerated the transition to oral antibiotics. 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 VQ scan was suggestive of diffuse disease but no evidence of PE. Will continue home medications and follow. Will decrease nebulizer in the setting of A. fib. 02/28/16 10:00 Prednisone [Deltasone 20 mg Tablet] 02/28/16 14:00 Levalbuterol HCl [Xopenex Neb 1.25 mg/3 ml Ampul] 1.25 mg NEB [id number] 02/28/16 15:45 Flutter [PEP Device(PositiveExpiratory)] [RESPCARE] 02/28/16 22:00 Guaifenesin [Mucinex Sr 600 mg Tablet.sa] 1,200 mg PO Q12 (3) Acute and chronic respiratory failure with hypercapnia Is this a current diagnosis for this admission?: YesPlan: Secondary to the above. 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 Will encourage the BiPAP when the patient is not eating and repeat gases in the a.m. Consult pulmonology for additional input. 02/28/16 10:31 BIPAP [RESPCARE] RTPRN (4) Atrial flutter with rapid ventricular response Is this a current diagnosis for this admission?: YesPlan: Do appreciate cardiology input with this. Dig has been added as well this will need to be followed up outpatient. 02/28/16 07:30 Physician [CONS] Timed 03/02/16 11:00 Diltiazem HCl [Cardizem Cd 180 mg Capsule] 180 mg PO Q12 (5) Congestive heart failure Qualifiers: Congestive heart failure type: systolic Congestive heart failure chronicity: unspecified congestive heart failure chronicity Qualified Code(s): I50.20 - Unspecified systolic (congestive) heart failure Is this a current diagnosis for this admission?: YesPlan: Do appreciate cardiology input with this. It appears the patient does have a reduced EF of 40-45% suggestive of systolic failure also appears the patient has right ventricle failure as well. (6) Elevated LFTs Is this a current diagnosis for this admission?: YesPlan: Appear to wax and wane will obtain right upper quadrant ultrasound. (7) History of DVT (deep vein thrombosis) Is this a current diagnosis for this admission?: No (8) DVT prophylaxis Is this a current diagnosis for this admission?: YesPlan: The patient's on Eliquis. I discussed the risk of bleeding with the as well as the lack of antidote. is elected to proceed with Eliquis for long- term anticoagulation due to A. fib flutter. - Time Time Spent with patient: on this visit including assessment, plan, physical examination, family meeting and patient education is 35 minutes. Time Spent with patient: 35 or more minutes Medications reviewed and adjusted accordingly: Yes Anticipated discharge: SNF Within: when bed available Disposition: The patient is a DO NOT RESUSCITATE DO NOT INTUBATE. Pending patient's symptomatology and diagnostic findings will reevaluate as needed.
--- NOTE | 2016-03-04 18:18 | PROGRESS NOTE E ---
Progress Note NAME: SILVESTRE DELGADILLO : 1930 AGE: 86Y DATE: 03/04/2016 ROOM: 308 SUBJECTIVE: The patient remains in atrial fibrillation/flutter with ventricular response in the 104-110. His shortness of breath is much better and he is off the BiPAP. He denies any chest discomfort. There is no palpitation, dizziness or syncope or presyncope. There is no PND or orthopnea. There is no pedal edema. There is no ventricular arrhythmia seen. There is no pauses or AV block seen. OBJECTIVE: GENERAL: On examination, therapy is well built and well-nourished, at present in no acute distress. VITAL SIGNS: He is afebrile with a temperature of 97.5 degrees Fahrenheit, pulse of 118 beats per minute, blood pressure is 139/91, respirations are 20 per minute, O2 saturations are 96% on 4 L nasal cannula. HEENT: Head is atraumatic, normocephalic. Eyes: Pupils are equal, round, regular, reactive to light and accommodation. Extraocular movements are normal. There is no conjunctival pallor. ENT is negative. NECK: Supple. There is no JVD. Carotids are equal and there is no bruit. There is no lymphadenopathy. There is no goiter. Trachea is central. LUNGS: Show diminished air entry and prolonged expiration throughout. There are no rhonchi, rales or wheezing. There is hyperresonance on percussion, and there is no chest wall tenderness. HEART: S1, S2 is heard. There is variable S1 in intensity. There is no S3 gallop. There is no S4 gallop. There is a systolic murmur in the left sternal border and the apex. There is no rub. ABDOMEN: Soft, nontender. There is no hepatosplenomegaly. Bowel sounds are well heard. There are no tender areas or masses. EXTREMITIES: Femorals are diminished. Leg pulses are diminished. There is no pedal edema. There is no femoral bruits. There is no cyanosis or clubbing. There is no cellulitis. There is no calf tenderness. CENTRAL NERVOUS SYSTEM: The patient is conscious, alert but is pleasantly confused. He is disoriented x3. There are no focal deficits. PSYCHIATRIC: The patient does not appear to be agitated or depressed. Detailed psychiatric examination could not be performed due to the patient's mental status. DIAGNOSTIC DATA: The patient's chest x-ray done today, there seems to be some interstitial prominence but no definite heart failure by my interpretation. The patient's white count is 8200, hemoglobin 12.4, hematocrit 37.3, and platelet count is 118,000. The patient's sodium is 139.1, potassium 4.7, chloride 94, CO2 38, BUN 31, creatinine 0.66, GRF greater than 60, glucose is 102, calcium is low at 8.3, ALT is 86 (which is less than 110 on 03/02), and the rest of the liver function tests are normal. The patient's albumin is 2.2 and total protein is 4.1. IMPRESSION: 1. [id number] RESPIRATORY FAILURE WITH HYPERCAPNIA, IMPROVING. 2. ATRIAL FLUTTER WITH RAPID VENTRICULAR RESPONSE. At present ventricular response is 100 to the high 110's. Will add digoxin 0.125 mg IV push now and 0.25 mg p.o. daily from tomorrow. Continue Cardizem CD at 180 mg p.o. q.12 h. 3. ELEVATED LFTs. They seem to be trending down. 4. COPD EXACERBATION. Much improved. 5. CONGESTIVE HEART FAILURE. At present compensated. No clinical evidence of congestive heart failure. 6. LEFT LOWER LOBE PNEUMONIA. This seems to have resolved. 7. HISTORY OF DVT. None this admission. The patient is on Eliquis which should prevent PE or DVT. 8. CARDIOMYOPATHY WITH MILDLY REDUCED LV EJECTION FRACTION. Most likely the cardiomyopathy is secondary to his atrial flutter with rapid ventricular heart rate causing tachycardia induced cardiomyopathy. Would recommend to control the patient's heart rate and recheck the patient's echocardiogram in 3-6 months to see if there is improvement. RECOMMENDATIONS: Note: The patient is stable. Most likely the patient will be discharged home tomorrow. Would recommend that the patient's PMD recheck the patient's digoxin level in about a week to 2 weeks and make sure that it is therapeutic. All of the above discussed with patient and discussed with hospitalist. NOTE: Thirty-five minutes spent on this patient with more than 50% of the time spent on direct patient care. The patient will decide as to which personal counselor he wants to follow up with. Thanking you. DICTATING PHYSICIAN: TAMERA ESPOSITO M.D. [id number] PHY#: [id number] ID: [id number] JOB#: [id number] ACCT: [id number] cc: > [facility]
[2016-03-04] MEDS: AZITHROMYCIN 250 MG TABLET PO SCH (21:04)
[2016-03-04] MEDS: MONTELUKAST SODIUM 10 MG TABLET PO SCH (21:05)
[2016-03-05] MEDS: LANSOPRAZOLE 30 MG TAB.RAP.DR PO SCH (05:12)
--- NOTE | 2016-03-05 09:45 | PDOC PROGRESS REPORT ---
Subjective Progress Note for:: 03/05/16 - O Subjective:: Patient was on BiPAP support during the night On the monitor is still in A. fib flutter at a rate of 110 one twice per minute Patient is somewhat confused, in no respiratory distress He has no chest pain no shortness of breath no abdominal pain Physical Exam Vital Signs: Temp Pulse Resp BP Pulse Ox 97.5 F 64 20 138/82 H 96 03/05/16 04:03 03/05/16 07:00 03/05/16 04:03 03/05/16 04:03 03/05/16 06:05 Intake & Output 03/04/16 03/05/16 03/06/16 00:59 00:59 00:59 Intake Total 1334 1105 50 Output Total 150 150 150 Balance 1184 955 -100 Weight 90.4 kg 93 kg 92.3 kg General appearance: PRESENT: no acute distress, cooperative Head exam: PRESENT: atraumatic, normocephalic Eye exam: PRESENT: conjunctiva pink, EOMI, PERRLA. ABSENT: scleral icterus Neck exam: ABSENT: carotid bruit, JVD, lymphadenopathy, thyromegaly Respiratory exam: PRESENT: clear to auscultation marichuy, wheezes. ABSENT: rales, rhonchi Cardiovascular exam: PRESENT: irregular rhythm, tachycardia. ABSENT: rubs, systolic murmur Vascular exam: PRESENT: normal capillary refill GI/Abdominal exam: PRESENT: normal bowel sounds, soft. ABSENT: distended, guarding, mass, organolmegaly, rebound, tenderness Neurological exam: PRESENT: CN II-XII grossly intact, other - Somewhat confused Skin exam: PRESENT: dry, intact, warm. ABSENT: cyanosis, rash Results Laboratory Results: 03/04/16 04:03 03/04/16 04:03 02/28/16 02/28/16 07:34 07:34 Creatine Kinase < 20 L CK-MB (CK-2) 1.41 Troponin I 0.030 Impressions: Lung Scan-VQ NM 02/28/16 01:18 IMPRESSION: Severe nonspecific diffuse diminished ventilation. NEGATIVE FOR PULMONARY EMBOLI. Abdomen Ultrasound 03/04/16 00:00 IMPRESSION: No acute biliary findings. Chest X-Ray 03/04/16 11:00 IMPRESSION: Stable chest. As above. Assessment & Plan - Diagnosis (1) Acute and chronic respiratory failure with hypercapnia Is this a current diagnosis for this admission?: Yes (2) Atrial flutter with rapid ventricular response Is this a current diagnosis for this admission?: YesPlan: Rate is still high this morning patient is currently on digoxin and Cardizem; we will add metoprolol 25 mg by mouth every 12 (3) Cardiomyopathy Qualifiers: Cardiomyopathy type: unspecified Qualified Code(s): I42.9 - Cardiomyopathy, unspecified Is this a current diagnosis for this admission?: YesPlan: Patient's EF was 45-50% Patient 's CHF appears compensated at this time Continue the present management (4) Elevated LFTs Is this a current diagnosis for this admission?: YesPlan: Improved (5) LLL pneumonia Qualifiers: Pneumonia type: due to unspecified organism Qualified Code(s): J18.1 - Lobar pneumonia, unspecified organism Is this a current diagnosis for this admission?: YesPlan: Continue present antibiotics - Time Time Spent with patient: We will obtain a PT evaluation Patient is a candidate for SNF facility and should be transferred with the BiPAP to wear overnight Time Spent with patient: 25-34 minutes Anticipated discharge: SNF
[2016-03-05] MEDS ORDERED: METOPROLOL TARTRATE 25 MG TABLET PO SCH (10:00)
[2016-03-05] MEDS ORDERED: DIGOXIN 0.25 MG TABLET PO SCH (10:00)
[2016-03-05] MEDS: DILTIAZEM HCL 180 MG CAPSULE.CR PO SCH ×2 (10:06→22:13)
[2016-03-05] MEDS: PREDNISONE 20 MG TABLET PO SCH (10:08)
[2016-03-05] MEDS: CEFUROXIME 500 MG TABLET PO SCH ×2 (10:08→22:13)
[2016-03-05] MEDS: GUAIFENESIN 600 MG TABLET.SA PO SCH ×2 (10:08→22:13)
[2016-03-05] MEDS: LISINOPRIL 5 MG TABLET PO SCH ×2 (10:09→22:14)
[2016-03-05] MEDS: FUROSEMIDE 20 MG TABLET PO SCH (10:09)
[2016-03-05] MEDS: BUDESONIDE/FORMOTEROL 160-4.5 MCG 60 PUFF/6 GM MDI IH SCH ×2 (10:10→22:12)
[2016-03-05] MEDS: APIXABAN 2.5 MG TABLET PO SCH ×2 (10:10→17:34)
[2016-03-05] MEDS: TIOTROPIUM BROMIDE DPI 5 CAP/KIT (18 MCG/CAP) IH SCH (10:58)
--- NOTE | 2016-03-05 12:33 | PROGRESS NOTE E ---
Progress Note NAME: SILVESTRE DELGADILLO : 1930 AGE: 86Y DATE: 03/05/2016 ROOM: 308 SUBJECTIVE: Note that the patient remains in atrial fibrillation flutter with fairly well controlled ventricular response. Note that the patient is a little more oriented today and denies any chest pain or discomfort. There is no cough, wheezing or sputum production. The patient has no ventricular arrhythmias. There is no PND, orthopnea or leg edema. There is no dizziness, syncope or near syncope. OBJECTIVE: GENERAL: The patient is well built and well nourished, at present in no acute distress. VITAL SIGNS: He is afebrile with a temperature of 97.9 degrees Fahrenheit, pulse 64 beats per minute, blood pressure 123/73, respirations 20 per minute, O2 saturation 94% on 2.5L nasal cannula oxygen. HEENT: Head is atraumatic and normocephalic. Eyes, pupils are equal, round, regular, reactive to light and accommodation. Extraocular movements are normal. There is no conjunctival pallor. There is no scleral icterus. ENT negative. NECK: Supple. There is no JVD. Carotids are equal. There is no bruit. There is no lymphadenopathy. There is no goiter. Trachea is central. LUNGS: Show diminished air entry, prolonged expiration throughout. There are no rhonchi, rales or wheezing. There is hyperresonance on percussion. There is no chest wall tenderness. HEART: S1 and S2 are heard. S1 is of variable intensity. There is no S3 gallop. There is no S4 gallop. There is a systolic murmur at the left sternal border at the apex. There is no rub. ABDOMEN: Soft, nontender. There is no hepatosplenomegaly. Bowel sounds are well heard. There are no tender areas or masses. EXTREMITIES: Femorals are diminished. There are no femoral bruits. Leg pulses are diminished. There is no pedal edema. There are no femoral bruits. There is no cyanosis or clubbing. There is no cellulitis. There is no calf tenderness. CENTRAL NERVOUS SYSTEM: The patient is conscious, awake, alert, oriented x3 with no focal deficits. PSYCHIATRIC: The patient does not appear to be agitated or depressed. He is a little more oriented today. IMPRESSION: 1. ACUTE ON CHRONIC RESPIRATORY FAILURE WITH HYPERCAPNIA, RESOLVED. THE PATIENT SEEMS TO BE BACK TO BASELINE. 2. ATRIAL FLUTTER WITH RAPID VENTRICULAR RESPONSE. AT PRESENT, VENTRICULAR RESPONSE IS WELL CONTROLLED AND HENCE, THE RAPID VENTRICULAR RESPONSE TO ATRIAL FIBRILLATION/FLUTTER HAS RESOLVED. CONTINUE CARDIZEM CD AT 0.18 MG P.O. EVERY 12 HOURS AND ALSO START THE PATIENT ON DIGOXIN 0.125 MG P.O. DAILY. WILL CHECK A DIG LEVEL IN THE MORNING. 3. ELEVATED LIVER FUNCTION TESTS. THESE SEEM TO BE TRENDING DOWN. WILL RECHECK IN THE A.M. 4. COPD EXACERBATION, NOW RESOLVED. THE PATIENT IS BACK TO BASELINE. 5. CONGESTIVE HEART FAILURE, AT PRESENT COMPENSATED, RESOLVED. NO CLINICAL EVIDENCE OF CONGESTIVE HEART FAILURE. 6. LEFT LOWER LOBE PNEUMONIA. THIS SEEMS TO HAVE RESOLVED. 7. HISTORY OF DVT, NONE THIS ADMISSION. THE PATIENT IS ON ELIQUIS WHICH SHOULD PREVENT PULMONARY EMBOLUS OR DVT. 8. CARDIOMYOPATHY WITH MILDLY REDUCED LV EJECTION FRACTION, MOST LIKELY THE CARDIOMYOPATHY IS SECONDARY TO ATRIAL FLUTTER WITH RAPID VENTRICULAR RESPONSE CAUSING TACHYCARDIA-INDUCED CARDIOMYOPATHY. WOULD RECOMMEND TO CONTROL THE PATIENT'S HEART RATE AND RECHECK THE PATIENT'S ECHOCARDIOGRAM IN 3 TO 6 MONTHS TO SEE IF THERE IS INTERIM IMPROVEMENT. RECOMMENDATIONS: The patient is stable. Hopefully, the patient will be discharged in 24 to 48 hours. Will check a dig level in the morning and also recheck the patient's liver function tests. Will discuss with the as to which rebar fabricator she wants the patient to follow up with. DICTATING PHYSICIAN: TAMERA ESPOSITO M.D. [id number] EMMY#: [id number] ID: [id number] JOB#: [id number] ACCT: [id number] cc: >
[2016-03-05] MEDS: MONTELUKAST SODIUM 10 MG TABLET PO SCH (22:13)
[2016-03-05] MEDS: AZITHROMYCIN 250 MG TABLET PO SCH (22:13)
[2016-03-06] MEDS: LANSOPRAZOLE 30 MG TAB.RAP.DR PO SCH (06:18)
[2016-03-06 07:18] LABS: VENOUS BLOOD BASE EXCESS 11.5 mmol/L; VENOUS BLOOD HCO3 39.9 mmol/L (20-32); VENOUS BLOOD PH 7.39 (7.30-7.42)
[2016-03-06 07:29] LABS: VENOUS BLOOD PCO2 68.1 mmHg (35-63)
[2016-03-06 07:37] LABS: ALBUMIN 2.9 g/dL (3.5-5.0); BILIRUBIN,TOTAL 0.8 mg/dL (0.2-1.3); DIGOXIN 0.79 ng/mL (0.8-2.0); TOTAL PROTEIN 5.9 g/dL (6.3-8.2)
[2016-03-06 08:16] VITALS: BP 138/81
[2016-03-06] MEDS: GUAIFENESIN 600 MG TABLET.SA PO SCH (09:50)
[2016-03-06] MEDS: PREDNISONE 20 MG TABLET PO SCH (09:50)
[2016-03-06] MEDS: APIXABAN 2.5 MG TABLET PO SCH ×2 (09:50→18:25)
[2016-03-06] MEDS: LISINOPRIL 5 MG TABLET PO SCH (09:51)
[2016-03-06] MEDS: CEFUROXIME 500 MG TABLET PO SCH (09:51)
[2016-03-06] MEDS: FUROSEMIDE 20 MG TABLET PO SCH (09:51)
[2016-03-06] MEDS: TIOTROPIUM BROMIDE DPI 5 CAP/KIT (18 MCG/CAP) IH SCH (09:52)
[2016-03-06] MEDS: BUDESONIDE/FORMOTEROL 160-4.5 MCG 60 PUFF/6 GM MDI IH SCH (09:52)
--- NOTE | 2016-03-06 14:44 | PDOC TRANSFER SUMMARY ---
General - Admit/Disc Date/PCP Admission Date/Primary Care Provider: 02/28/16 01:[address] Cloud Discharge Date: 03/06/16 - Discharge Diagnosis (1) Acute and chronic respiratory failure with hypercapnia Is this a current diagnosis for this admission?: YesSummary: Patient was admitted to with acute on chronic respiratory failure is the PCO2 was above 70 Patient had to be placed on BiPAP support on admission He then had BiPAP at night He was recently reevaluated and it appears that on nasal O2 at 2 L/m patient has a PCO2 67 which is stable with a normal pH Patient does not need BiPAP at night at discharge Acute on chronic respiratory failure was secondary to acute on chronic COPD, pneumonia acute on chronic systolic CHF (2) Atrial flutter with rapid ventricular response Is this a current diagnosis for this admission?: YesSummary: Patient was evaluated by Dr. Cloud He is currently in atrial fibrillation flutter with controlled ventricular rate on Cardizem CD He is chronically anticoagulated with Eliquis 2.5 mg by mouth twice a day Patient is stable at discharge (3) Cardiomyopathy Is this a current diagnosis for this admission?: YesSummary: The left ventricular ejection fraction of 45% lisinopril and Lasix were added patient's medications Systolic failure is currently compensated (4) Elevated LFTs Is this a current diagnosis for this admission?: YesSummary: Resolved at discharge (5) LLL pneumonia Is this a current diagnosis for this admission?: YesSummary: Patient did have sepsis secondary to left lower lobe pneumonia on admission He was treated with ceftriaxone and azithromycin IV He was discharged on Ceftin and azithromycin by mouth for another 5 days (6) Metabolic encephalopathy Is this a current diagnosis for this admission?: YesSummary: Improved during hospital stay Patient still appears confused at times - Additional Information Resuscitation Status: Full Code Home Medications: Albuterol Sulfate [Proair HFA] 2 puff IH QIDP PRN 02/28/16 Budesonide/Formoterol Fumarate [Symbicort HFA 160-4.5 mcg Inhaler 6 gm] 1 puff IH Q12 02/28/16 Montelukast Sodium 10 mg PO DAILY 02/28/16 Tiotropium [place] [Spiriva Handihaler 18 mcg/dose (30 Dose)] 1 cap IH DAILY Apixaban [Eliquis 2.5 mg Tablet] 2.5 mg PO BID #60 tablet 03/06/16 Azithromycin [Zithromax 250 mg Tablet] 500 mg PO QHS #5 tablet 03/06/16 Bisacodyl [Dulcolax 10 mg Supp.rect] 10 mg MN DAILYP PRN #30 supp.rect 03/06/16 Cefuroxime Axetil [Ceftin 500 mg Tablet] 500 mg PO Q12 #10 tablet 03/06/16 Diltiazem HCl [Cardizem Cd 180 mg Capsule] 180 mg PO Q12 #60 capsule.cr Furosemide [Lasix 20 mg Tablet] 20 mg PO DAILY #30 tablet 03/06/16 Guaifenesin [Mucinex Sr 600 mg Tablet.sa] 1,200 mg PO Q12 #10 tablet.sa Levalbuterol HCl [Xopenex Neb 0.63 mg/3 ml Ampul] 0.63 mg NEB [id number] PRN #30 vial.neb 03/06/16 Lisinopril [Prinivil 5 mg Tablet] 2.5 mg PO Q12 #60 tablet 03/06/16 Prednisone [Deltasone 20 mg Tablet] 40 mg PO DAILY #30 tablet 03/06/16 History of Present Illness Admission Date/PCP: 02/28/16 01:19 Patient complains of: Shortness of breath History of Present Illness: Short of breath History of Present Illness: SILVESTRE DELGADILLO is a 86 year old male with underlying home O2 dependent COPD, 2 L oxygen per nasal cannula, 24/, who presents to the emergency room for evaluation of above complaint. Patient has been discussed with emergency room physician who evaluated the patient. Patient himself is a fairly rambling, somewhat disjointed historian. , who is his surrogate healthcare decision maker, and who is at his side with his approval, is about the same. Describes a three-day history of slowly progressive shortness of breath, in particular with much of any exertion. No nausea vomiting, fever or chills. No pain. He normally produces only small amounts of clear white sputum. Over the last 2- 3 days, sputum has turned brownish green and is greatly increased in amount. Hospital Course Hospital Course: Patient to was admitted to with new onset atrial fibrillation flutter, pneumonia , CHF COPD acute exacerbation Patient improved greatly during his hospital stay She was treated with steroids nebs. Antibiotic. Cardizem CD. He was anticoagulated with eliquis Patient was still somewhat confused at times; he could ambulate with a walker It was felt safer for him to go to short-term rehabilitation as his is legally blind and she could not care for him at this time Patient is to be followed by Dr. Cloud in the office as an outpatient Physical Exam Vital Signs: Temp Pulse Resp BP Pulse Ox 98.0 F 102 H 22 H 138/81 H 96 03/06/16 07:40 03/06/16 14:00 03/06/16 07:40 03/06/16 07:40 03/06/16 07:40 Intake & Output 03/05/16 03/06/16 03/07/16 00:59 00:59 00:59 Intake Total 1105 1160 710 Output Total 150 370 450 Balance 955 790 260 Weight 93 kg 92.3 kg 85.7 kg General appearance: PRESENT: no acute distress, well-developed, well-nourished Head exam: PRESENT: atraumatic, normocephalic Eye exam: PRESENT: conjunctiva pink, EOMI, PERRLA. ABSENT: scleral icterus Ear exam: PRESENT: normal external ear exam Mouth exam: PRESENT: moist, tongue midline Neck exam: ABSENT: carotid bruit, JVD, lymphadenopathy, thyromegaly Respiratory exam: PRESENT: clear to auscultation marichuy. ABSENT: rales, rhonchi, wheezes Cardiovascular exam: PRESENT: RRR. ABSENT: diastolic murmur, rubs, systolic murmur Pulses: PRESENT: normal dorsalis pedis pul Vascular exam: PRESENT: normal capillary refill GI/Abdominal exam: PRESENT: normal bowel sounds, soft. ABSENT: distended, guarding, mass, organolmegaly, rebound, tenderness Rectal exam: PRESENT: deferred Extremities exam: PRESENT: full ROM. ABSENT: calf tenderness, clubbing, pedal edema Neurological exam: PRESENT: alert, awake, CN II-XII grossly intact. ABSENT: motor sensory deficit Psychiatric exam: PRESENT: anxious, appropriate affect Skin exam: PRESENT: dry, intact, warm. ABSENT: cyanosis, rash Results Laboratory Results: Labs- Last Values WBC 8.2 10^3/uL (4.0-10.5) 03/04/16 04:03 RBC 3.71 10^6/uL (4.35-5.55) L 03/04/16 04:03 Hgb 12.4 g/dL (13.5-17.0) L 03/04/16 04:03 Hct 37.3 % (37.9-51.0) L 03/04/16 04:03 MCV 101 fl (80-97) H 03/04/16 04:03 MCH 33.6 pg (27.0-33.4) H 03/04/16 04:03 MCHC 33.4 g/dL (32.0-36.0) 03/04/16 04:03 RDW 13.2 % (11.5-14.0) 03/04/16 04:03 Plt Count 118 10^3/uL (150-450) L 03/04/16 04:03 Total Counted 100 02/28/16 07:34 Seg Neutrophils % Not Reportable 02/28/16 07:34 Seg Neuts % (Manual) 67 % (42-78) 02/28/16 07:34 Band Neutrophils % 5 % (3-5) 02/28/16 07:34 Lymphocytes % Not Reportable 02/28/16 07:34 Lymphocytes % (Manual) 8 % (13-45) L 02/28/16 07:34 Monocytes % Not Reportable 02/28/16 07:34 Monocytes % (Manual) 20 % (3-13) H 02/28/16 07:34 Eosinophils % Not Reportable 02/28/16 07:34 Eosinophils % (Manual) 0 % (0-6) 02/28/16 07:34 Basophils % Not Reportable 02/28/16 07:34 Basophils % (Manual) 0 % (0-2) 02/28/16 07:34 Absolute Neutrophils Not Reportable 02/28/16 07:34 Abs Neuts (Manual) 4.0 10^3/uL (1.7-8.2) 02/28/16 07:34 Absolute Lymphocytes Not Reportable 02/28/16 07:34 Abs Lymphs (Manual) 0.4 10^3/uL (0.5-4.7) L 02/28/16 07:34 Absolute Monocytes Not Reportable 02/28/16 07:34 Abs Monocytes (Manual) 1.1 10^3/uL (0.1-1.4) 02/28/16 07:34 Absolute Eosinophils Not Reportable 02/28/16 07:34 Absolute Eos (Manual) 0.0 10^3/uL (0.0-0.6) 02/28/16 07:34 Absolute Basophils Not Reportable 02/28/16 07:34 Abs Basophils (Manual) 0.0 10^3/uL (0.0-0.2) 02/28/16 07:34 Toxic Granulation 1+ 02/28/16 07:34 Dohle Bodies PRESENT 02/28/16 07:34 Large Platelets PRESENT 02/28/16 07:34 Giant Platelets PRESENT 02/28/16 07:34 Platelet Comment ADEQUATE 02/28/16 07:34 Polychromasia SLIGHT 02/28/16 07:34 Macrocytosis SLIGHT 02/28/16 07:34 D-Dimer 1.08 ug/mL (0.00-0.50) H 02/27/16 17:20 Carbonic Acid 2.23 mmol/L (1.05-1.35) H 03/04/16 06:25 HCO3/H2CO3 Ratio 20:1 03/04/16 06:25 ABG pH 7.41 (7.35-7.45) 03/04/16 06:25 ABG pCO2 74.1 mmHg (35-45) H* 03/04/16 06:25 ABG pO2 98.4 mmHg (80-100) 03/04/16 06:25 ABG HCO3 45.7 mmol/L (20-26) H 03/04/16 06:25 ABG Total CO2 48.0 mmol/L (23-27) H 03/04/16 06:25 ABG O2 Saturation 97.2 % (94-98) 03/04/16 06:25 ABG Base Excess 17.2 mmol/L 03/04/16 06:25 VBG pH 7.39 (7.30-7.42) 03/06/16 07:04 VBG pCO2 68.1 mmHg (35-63) H* 03/06/16 07:04 VBG HCO3 39.9 mmol/L (20-32) H 03/06/16 07:04 VBG Base Excess 11.5 mmol/L 03/06/16 07:04 FiO2 40% 03/04/16 06:25 Sodium 139.1 mmol/L (137-145) 03/04/16 04:03 Potassium 4.7 mmol/L (3.6-5.0) 03/04/16 04:03 Chloride 94 mmol/L (98-107) L 03/04/16 04:03 Carbon Dioxide 38 mmol/L (22-30) H 03/04/16 04:03 Anion Gap 7 (5-19) 03/04/16 04:03 BUN 31 mg/dL (7-20) H 03/04/16 04:03 Creatinine 0.66 mg/dL (0.52-1.25) 03/04/16 04:03 Est GFR ( Amer) > 60 (>60) 03/04/16 04:03 Est GFR (Non-Af Amer) > 60 (>60) 03/04/16 04:03 Glucose 102 mg/dL (75-110) 03/04/16 04:03 POC Glucose 108 mg/dL (70-110) 03/03/16 05:51 Calcium 8.3 mg/dL (8.4-10.2) L 03/04/16 04:03 Magnesium 1.9 mg/dL (1.6-2.3) 03/04/16 04:03 Total Bilirubin 0.8 mg/dL (0.2-1.3) 03/06/16 07:04 Direct Bilirubin 0.0 mg/dL (0.0-0.3) 03/06/16 07:04 AST 55 U/L (17-59) 03/06/16 07:04 ALT 91 U/L (21-72) H 03/06/16 07:04 Alkaline Phosphatase 61 U/L (38-126) 03/06/16 07:04 Creatine Kinase < 20 U/L (55-170) L 02/28/16 07:34 CK-MB (CK-2) 1.41 ng/mL (<4.55) 02/28/16 07:34 Troponin I 0.030 ng/mL 02/28/16 07:34 NT-Pro-B Natriuret Pep 7310 pg/mL (<450) H 02/27/16 17:20 Total Protein 5.9 g/dL (6.3-8.2) L 03/06/16 07:04 Albumin 2.9 g/dL (3.5-5.0) L 03/06/16 07:04 TSH 0.84 uIU/mL (0.47-4.68) 02/27/16 17:20 Urine Color YELLOW 02/29/16 02:15 Urine Appearance CLEAR 02/29/16 02:15 Urine pH 6.0 (5.0-9.0) 02/29/16 02:15 Ur Specific [place] 1.027 02/29/16 02:15 Urine Protein 30 mg/dL (NEGATIVE) H 02/29/16 02:15 Urine Glucose (UA) NEGATIVE mg/dL (NEGATIVE) 02/29/16 02:15 Urine Ketones NEGATIVE mg/dL (NEGATIVE) 02/29/16 02:15 Urine Blood NEGATIVE (NEGATIVE) 02/29/16 02:15 Urine Nitrite NEGATIVE (NEGATIVE) 02/29/16 02:15 Urine Bilirubin NEGATIVE (NEGATIVE) 02/29/16 02:15 Urine Urobilinogen 2.0 mg/dL (<2.0) H 02/29/16 02:15 Ur Leukocyte Esterase NEGATIVE (NEGATIVE) 02/29/16 02:15 Urine WBC (Auto) 1 /HPF 02/29/16 02:15 Urine RBC (Auto) 6 /HPF 02/29/16 02:15 U Hyaline Cast (Auto) 10 /LPF 02/29/16 02:15 Squamous Epi Cells Auto <1 /HPF 02/29/16 02:15 Urine Mucus (Auto) FEW /LPF 02/29/16 02:15 Urine Ascorbic Acid 20 (NEGATIVE) H 02/29/16 02:15 Digoxin 0.79 ng/mL (0.8-2.0) L 03/06/16 07:04 Impressions: Lung Scan-VQ NM 02/28/16 01:18 IMPRESSION: Severe nonspecific diffuse diminished ventilation. NEGATIVE FOR PULMONARY EMBOLI. Abdomen Ultrasound 03/04/16 00:00 IMPRESSION: No acute biliary findings. Chest X-Ray 03/04/16 11:00 IMPRESSION: Stable chest. As above. Transfer Plan - Time Spent with Patient Time spent with patient: Greater than 30 Minutes
--- NOTE | 2016-03-06 19:18 | PROGRESS NOTE E ---
Progress Note NAME: SILVESTRE DELGADILLO : 1930 AGE: 86Y DATE: 03/06/2016 ROOM: 308 SUBJECTIVE: The patient earlier heart rate went down into the 50s. It remains in atrial fibrillation. He is breathing much better. He is off the BiPAP. He denies any PND or orthopnea. There is no leg swelling. There are no TIA or CVA symptoms. There is no bleeding on Eliquis. There is no chest pain or discomfort. OBJECTIVE: GENERAL: On examination, the patient at present is in no acute distress. He is well built and well nourished. VITAL SIGNS: He is afebrile with a temperature of 98 degrees Fahrenheit. Pulse is 52 beats per minute. Blood pressure is 138/81. Respirations are 20 per minute. O2 saturations are 96% on 2.5 L on nasal O2 per minute. HEENT: Head is atraumatic, normocephalic. Eyes: Pupils are equal, round, regular, reactive to light and accommodation. Extraocular movements normal. There is no conjunctival pallor. There is no scleral icterus. ENT is negative. NECK: Supple. There is no JVD. Carotids are equal; there is no bruit. There is no lymphadenopathy. There is no goiter. Trachea is central. LUNGS: Diminished air entry with prolonged expiration throughout. There are no rhonchi, rales, or wheezing. There is hyperresonance on percussion. There is no chest wall tenderness. CARDIOVASCULAR: S1, S2 are heard. S1 is of variable intensity. There is no S3 gallop. There is no S4 gallop. There is systolic murmur in the left sternal border and the apex. There is no rub. ABDOMEN: Soft, nontender. There is no hepatosplenomegaly. Bowel sounds are well heard. There are no tender areas or masses. EXTREMITIES: Femorals are diminished. There are no femoral bruits. Leg pulses are diminished. There is no pedal edema. There is no cyanosis or clubbing. There is no cellulitis. There is no calf tenderness. CENTRAL NERVOUS SYSTEM: The patient is conscious, awake, and seems to be confused with no focal deficits. PSYCHIATRIC: The patient's judgement and insight cannot be tested. The patient does not appear to be agitated. LABORATORY DATA: The patient's liver function tests show a bilirubin of 0.8; his ALT is slightly elevated at 91; the rest of the liver function tests are normal. ASSESSMENT: 1. ACUTE ON CHRONIC RESPIRATORY FAILURE WITH HYPERCAPNIA, RESOLVED. The patient seems to be back to baseline chronic obstructive pulmonary disease. 2. ATRIAL FLUTTER AT PRESENT WITH A BRADYCARDIC RESPONSE. We will continue the patient's Cardizem-CD at 180 mg p.o. every 12 hours and also stop the patient's digoxin. 3. ELEVATED LIVER FUNCTION TESTS. These seem to be trending down. We will recheck. 4. CHRONIC OBSTRUCTIVE PULMONARY DISEASE EXACERBATION, NOW RESOLVED. Patient is back to baseline COPD. 5. CONGESTIVE HEART FAILURE AT PRESENT COMPENSATED, RESOLVED. No present evidence of congestive heart failure. 6. LEFT LOWER LOBE PNEUMONIA. This seems to have resolved. 7. HISTORY OF DEEP VENOUS THROMBOSIS. Patient on Eliquis. This should prevent pulmonary embolism and DVT. 8. CARDIOMYOPATHY WITH MILDLY REDUCED LEFT VENTRICULAR EJECTION FRACTION. Most likely this is secondary to atrial flutter with rapid ventricular response causing tachycardia-induced cardiomyopathy. Would recommend to control the patient's heart rate and recheck the patient's echocardiogram in 3-6 months to see if there is interval improvement. PLAN: The patient is stable. Continue Cardizem. Continue Eliquis. Continue all his other medications. Would taper off the patient's steroids. The patient is being discharged. We will sign the case. Discussed with the hospitalist taking care of the patient. TIME SPENT: Note 30 minutes spent on this patient with more than 50% of the time spent on direct patient care and also review of the patient's medications and discussions with the attending physician on the case. DICTATING PHYSICIAN: TAMERA ESPOSITO M.D. [id number] JOELY#: [id number] ID: [id number] JOB#: [id number] ACCT: [id number] cc: >
== END 2016-03-06 19:47 | DRG 189 ==
LOC: ER 15:44 → EH 02-28 → UNDOADMIN 02-28 → EH 02-28 01:19 → 3N 02-28 13:28
PROVIDERS: ADMIT Family Medicine; ATTEND Family Medicine
PROC: 5A09457 Assistance with Respiratory Ventilation, 24-96 Consecutive Hours, Continuous Positive Airway Pressure (ICD-10-PCS; principal; 2016-02-28)
DX: J96.22 Acute and chronic respiratory failure with hypercapnia (principal); J18.9 Pneumonia, unspecified organism; G93.41 Metabolic encephalopathy; J44.1 Chronic obstructive pulmonary disease with (acute) exacerbation; I50.20 Unspecified systolic (congestive) heart failure; I48.92 Unspecified atrial flutter; I42.8 Other cardiomyopathies; I48.91 Unspecified atrial fibrillation; Z99.81 Dependence on supplemental oxygen; Z66 Do not resuscitate; Z79.01 Long term (current) use of anticoagulants; Z79.899 Other long term (current) drug therapy; Z87.891 Personal history of nicotine dependence; Z85.820 Personal history of malignant melanoma of skin; Z85.828 Personal history of other malignant neoplasm of skin; Z96.653 Presence of artificial knee joint, bilateral; Z86.718 Personal history of other venous thrombosis and embolism
CPT/HCPCS: 36415; 36600; 71010; 71020; 76705; 78582; 80048; 80053; 80076; 80162; 81001; 82550; 82553; 82803; 82962; 83735; 83880; 84443; 84484; 85025; 85027; 85379; 87040; 93005; 93010; 93306; 94640; 94660; 94667; 94799; 96361; 96365; 96366; 99285; A9540; A9567; G8978-GP; G8979-GP; J0456; J0696; J1160; J1650; J3490; J7030; J7060; J7512; J7620; Q9969

== ENCOUNTER → 2016-05-15 | Outpatient (CLI) | payer MEDICARE, OTHER ==
[2016-05-15 11:31] LABS: ANION GAP 8 (5-19); BLOOD UREA NITROGEN 13 mg/dL (7-20); CALCIUM 9.5 mg/dL (8.4-10.2); CARBON DIOXIDE 30 mmol/L (22-30); CHLORIDE 103 mmol/L (98-107); GLUCOSE 82 mg/dL (75-110); SODIUM 141.1 mmol/L (137-145)
== END ==
LOC: OD 09:44
PROVIDERS: ATTEND Internal Medicine Cardiovascular Disease
DX: I50.9 Heart failure, unspecified (principal); I48.91 Unspecified atrial fibrillation
CPT/HCPCS: 36415; 80048

== ENCOUNTER → 2016-09-17 | Outpatient (CLI) | payer MEDICARE, OTHER ==
[2016-09-17 17:29] LABS: ABSOLUTE EOSINOPHILS # (AUTO) 0.1 10^3/uL (0.0-0.6); ABSOLUTE LYMPHOCYTES (AUTO) 0.9 10^3/uL (0.5-4.7); ABSOLUTE MONOCYTES (AUTO) 0.7 10^3/uL (0.1-1.4); ABSOLUTE NEUT (AUTO) 4.1 10^3/uL (1.7-8.2); BASOPHILS % (AUTO) 0.4 % (0-2); EOSINOPHILS % (AUTO) 1.9 % (0-6); HEMATOCRIT 44.4 % (37.9-51.0); HEMOGLOBIN 14.5 g/dL (13.5-17.0); HGB HCT DIFFERENCE -0.9; MEAN CORPUSCULAR HEMOGLOBIN 32.7 pg (27.0-33.4); MEAN CORPUSCULAR HGB CONC 32.7 g/dL (32.0-36.0); MEAN CORPUSCULAR VOLUME 100 fl (80-97); MONOCYTES % (AUTO) 12.5 % (3-13); RED BLOOD COUNT 4.45 10^6/uL (4.35-5.55); RED CELL DISTRIBUTION WIDTH 13.4 % (11.5-14.0); SEGMENTED NEUTROPHILS % (AUTO) 70.2 % (42-78); WHITE BLOOD COUNT 5.8 10^3/uL (4.0-10.5)
[2016-09-17 17:32] LABS: ARTERIAL BLOOD BASE EXCESS 8.3 mmol/L; ARTERIAL BLOOD O2 SATURATION 95.9 % (94-98)
--- NOTE | 2016-09-17 18:27 | RADIOLOGY REPORT (SQ) ---
EXAM DESCRIPTION: CHEST PA/LATERAL COMPLETED DATE/TIME: 09/17/2016 5:31 pm REASON FOR STUDY: COUGH COMPARISON: 03/04/2016 EXAM PARAMETERS: NUMBER OF VIEWS: two views TECHNIQUE: Digital Frontal and Lateral radiographic views of the chest acquired. RADIATION DOSE: NA LIMITATIONS: none FINDINGS: LUNGS AND PLEURA: The lungs are hyperexpanded. There are no pulmonary infiltrates or pleu ral effusions. Chronic interstitial changes are present. MEDIASTINUM AND HILAR STRUCTURES: No masses or contour abnormalities. HEART AND VASCULAR STRUCTURES: Cardiomegaly is present. There is no evidence of failure. The descen ding aorta is tortuous. BONES: No acute findings. HARDWARE: None in the chest. OTHER: No other significant finding. IMPRESSION: Cardiomegaly with chronic lung changes and no acute cardiopulmonary disease. TECHNICAL DOCUMENTATION: JOB ID: [id number] [employer]- All Rights Reserved
== END ==
LOC: OD 16:49
PROVIDERS: ATTEND Internal Medicine Pulmonary Disease
DX: R05 Cough (principal); J96.12 Chronic respiratory failure with hypercapnia
CPT/HCPCS: 36415; 36600; 71020; 82803; 85025; 87070; 87205

== ENCOUNTER → 2019-04-21 | Outpatient (CLI) | payer MEDICARE, OTHER ==
[2019-04-21 15:36] LABS: ABSOLUTE BASOPHILS # (AUTO) 0.1 10^3/uL (0.0-0.2); ABSOLUTE EOSINOPHILS # (AUTO) 0.2 10^3/uL (0.0-0.6); ABSOLUTE LYMPHOCYTES (AUTO) 1.3 10^3/uL (0.5-4.7); ABSOLUTE MONOCYTES (AUTO) 0.5 10^3/uL (0.1-1.4); ABSOLUTE NEUT (AUTO) 4.2 10^3/uL (1.7-8.2); BASOPHILS % (AUTO) 0.9 % (0-2); HEMATOCRIT 47.2 % (37.9-51.0); HEMOGLOBIN 15.9 g/dL (13.5-17.0); LYMPHOCYTES % (AUTO) 20.7 % (13-45); MEAN CORPUSCULAR HEMOGLOBIN 34.5 pg (27.0-33.4); MEAN CORPUSCULAR HGB CONC 33.7 g/dL (32.0-36.0); MEAN CORPUSCULAR VOLUME 102 fl (80-97); MONOCYTES % (AUTO) 8.8 % (3-13); PLATELET COUNT 137 10^3/uL (150-450); RED BLOOD COUNT 4.61 10^6/uL (4.35-5.55); RED CELL DISTRIBUTION WIDTH 12.9 % (11.5-14.0); SEGMENTED NEUTROPHILS % (AUTO) 66.6 % (42-78); TOTAL CELLS COUNTED % (AUTO) 100 %; WHITE BLOOD COUNT 6.2 10^3/uL (4.0-10.5)
[2019-04-21 15:58] LABS: ANION GAP 9 (5-19); BLOOD UREA NITROGEN 20 mg/dL (7-20); CALCIUM 9.7 mg/dL (8.4-10.2); CARBON DIOXIDE 33 mmol/L (22-30); CHLORIDE 101 mmol/L (98-107); GLUCOSE 86 mg/dL (75-110); POTASSIUM 4.1 mmol/L (3.6-5.0)
== END ==
LOC: OD 14:04
PROVIDERS: ATTEND Internal Medicine Pulmonary Disease
DX: J43.2 Centrilobular emphysema (principal)
CPT/HCPCS: 36415; 80048; 83735; 85025

== ENCOUNTER 2020-02-09 14:35 | Emergency (ER) | payer OTHER, MEDICARE ==
--- NOTE | 2020-02-09 14:53 | ER Document Report ---
ED Medical Screen (RME) - General Stated Complaint: CHEST PAIN Time Seen by Provider: 02/09/20 14:38 Primary Care Provider: SILVESTRE BRICEÑO MD [Primary Care Provider] - Follow up as needed Notes: HPI: History is obtained from the caregiver secondary to patient dementia. 89-year-old male with dementia, cardiomyopathy, CHF, kidney disease brought for evaluation of complaints of chest pain today. Caregiver says patient never normally complains of chest pain. He reports midsternal chest discomfort with shortness of breath. He also apparently has COPD history. He is a poor historian PHYSICAL EXAMINATION: Lung sounds are slightly decreased but otherwise clear. irregular rate and rhythm. No visible significant edema in the extremities I have greeted and performed a rapid initial assessment of this patient. A comprehensive ED assessment and evaluation of the patient, analysis of test results and completion of medical decision making process will be conducted by an additional ED providers. TRAVEL OUTSIDE OF THE [place] IN LAST 30 DAYS: No - Related Data Allergies/Adverse Reactions: No Known Allergies Allergy (Verified 02/27/16 16:30) Past Medical History - Past Medical History Cardiac Medical History: Reports: Hx DVT - Questionable DVT, 1980s. Denies: Hx Congestive Heart Failure, Hx Heart Attack, Hx Hypercholesterolemia, Hx Hypertension, Hx Pulmonary Embolism Pulmonary Medical History: Reports: Hx COPD Neurological Medical History: Denies: Hx Seizures Endocrine Medical History: Denies: Hx Diabetes Mellitus Type 1, Hx Diabetes Mellitus Type 2, Hx Hyperthyroidism, Hx Hypothyroidism Malignancy Medical History: Reports Hx Skin Cancer - Status post excision of melanoma from his anterior abdominal wall. GI Medical History: Denies: Hx Cirrhosis, Hx Gastroesophageal Reflux Disease, Hx Hepatitis Musculoskeltal Medical History: Denies Hx Arthritis Psychiatric Medical History: Reports: Hx Depression Infectious Medical History: Denies: Hx Hepatitis Past Surgical History: Reports: Hx Orthopedic Surgery - bilat knees, Other - Excision of melanoma from his anterior abdominal wall. Doctor's Discharge - Discharge Referrals: SILVESTRE BRICEÑO MD [Primary Care Provider] - Follow up as needed
--- NOTE | 2020-02-09 15:23 | RADIOLOGY REPORT (SQ) ---
EXAM DESCRIPTION: CHEST SINGLE VIEW IMAGES COMPLETED DATE/TIME: 02/09/2020 3:11 pm REASON FOR STUDY: chest pain COMPARISON: 09/17/2016 EXAM PARAMETERS: NUMBER OF VIEWS: One view. TECHNIQUE: Single frontal radiographic view of the chest acquired. RADIATION DOSE: NA LIMITATIONS: None. FINDINGS: LUNGS AND PLEURA: No opacities, masses or pneumothorax. No pleural effusion. MEDIASTINUM AND HILAR STRUCTURES: No masses. Contour normal. HEART AND VASCULAR STRUCTURES: Heart normal in size. Normal vasculature. BONES: No acute findings. HARDWARE: None in the chest. OTHER: No other significant finding. IMPRESSION: NO ACUTE RADIOGRAPHIC FINDING IN THE CHEST. TECHNICAL DOCUMENTATION: JOB ID: [id number] [employer]- All Rights Reserved Reading location - IP/workstation name: [email or web address]
[2020-02-09 15:27] LABS: ABSOLUTE BASOPHILS # (AUTO) 0.1 10^3/uL (0.0-0.2); ABSOLUTE EOSINOPHILS # (AUTO) 0.3 10^3/uL (0.0-0.6); ABSOLUTE LYMPHOCYTES (AUTO) 1.4 10^3/uL (0.5-4.7); ABSOLUTE MONOCYTES (AUTO) 0.7 10^3/uL (0.1-1.4); ABSOLUTE NEUT (AUTO) 4.4 10^3/uL (1.7-8.2); BASOPHILS % (AUTO) 0.8 % (0-2); EOSINOPHILS % (AUTO) 3.8 % (0-6); HEMATOCRIT 48.3 % (37.9-51.0); LYMPHOCYTES % (AUTO) 20.4 % (13-45); MEAN CORPUSCULAR HGB CONC 33.1 g/dL (32.0-36.0); MEAN CORPUSCULAR VOLUME 103 fl (80-97); MONOCYTES % (AUTO) 10.4 % (3-13); PLATELET COUNT 160 10^3/uL (150-450); RED CELL DISTRIBUTION WIDTH 13.1 % (11.5-14.0); SEGMENTED NEUTROPHILS % (AUTO) 64.6 % (42-78); TOTAL CELLS COUNTED % (AUTO) 100 %; WHITE BLOOD COUNT 6.8 10^3/uL (4.0-10.5)
[2020-02-09 15:34] LABS: INTERNATIONAL RATION (INR) 1.01; PROTHROMBIN TIME 13.5 SEC (11.4-15.4)
[2020-02-09 15:46] LABS: ALBUMIN 4.4 g/dL (3.5-5.0); ALKALINE PHOSPHATASE 59 U/L (38-126); ANION GAP 7 (5-19); ASPARTATE AMINO TRANSFERASE 36 U/L (17-59); BILIRUBIN,TOTAL 0.6 mg/dL (0.2-1.3); BLOOD UREA NITROGEN 22 mg/dL (7-20); CALCIUM 10.1 mg/dL (8.4-10.2); CARBON DIOXIDE 34 mmol/L (22-30); CHLORIDE 100 mmol/L (98-107); GLUCOSE 95 mg/dL (75-110); POTASSIUM 4.5 mmol/L (3.6-5.0); TOTAL PROTEIN 7.4 g/dL (6.3-8.2)
[2020-02-09 15:56] LABS: NT PRO BNP 1300 pg/mL (<450)
[2020-02-09 15:58] LABS: TROPONIN I < 0.012 ng/mL
[2020-02-09 17:30] LABS: APPEARANCE,URINE CLEAR; BILIRUBIN,URINE NEGATIVE (NEGATIVE); COLOR,URINE STRAW; GLUCOSE, URINE NEGATIVE (NEGATIVE); KETONES,URINE NEGATIVE (NEGATIVE); PROTEIN,URINE NEGATIVE (NEGATIVE); URINE SPECIFIC GRAVITY 1.007; UROBILINOGEN,URINE NEGATIVE mg/dL (<2.0)
--- NOTE | 2020-02-09 18:35 | ER Document Report ---
ED Cardiac - General Chief Complaint: Chest Pain Stated Complaint: CHEST PAIN Time Seen by Provider: 02/09/20 14:38 Primary Care Provider: SILVESTRE BRICEÑO MD [Primary Care Provider] - Follow up as needed Mode of Arrival: Ambulatory Information source: Patient, Relative - , Friend - [employer] TRAVEL OUTSIDE OF THE [place] IN LAST 30 DAYS: No - HPI Notes: Patient presents as pain. Patient states the pain is mainly in the bilateral lower chest and bilateral upper abdomen. Apparently it started this morning. Nothing known makes it better or worse. He does not describe any type of radiation. He does not describe any previous history of similar pain. states she does not know of any similar pain. It is unknown what might make it better or worse. Patient cannot characterize the pain. It does not appear to be severe at this time. However patient cannot rate it for me on a scale of 1- 10. There is been no associated symptoms such as vomiting sweating shortness of breath. - Related Data Allergies/Adverse Reactions: No Known Allergies Allergy (Verified 02/27/16 16:30) Past Medical History - General Information source: Patient, Relative, Friend - Social History Smoking Status: Never Smoker Frequency of alcohol use: None Drug Abuse: None Family History: Reviewed & Not Pertinent - Past Medical History Cardiac Medical History: Reports: Hx Atrial Fibrillation, Hx Congestive Heart Failure, Hx DVT - Questionable DVT, 1980s., Hx Heart Attack, Hx Hypercholesterolemia, Hx Hypertension Denies: Hx Pulmonary Embolism Pulmonary Medical History: Reports: Hx COPD Neurological Medical History: Denies: Hx Seizures Endocrine Medical History: Denies: Hx Diabetes Mellitus Type 1, Hx Diabetes Mellitus Type 2, Hx Hyperthyroidism, Hx Hypothyroidism Malignancy Medical History: Reports Hx Skin Cancer - Status post excision of melanoma from his anterior abdominal wall. GI Medical History: Denies: Hx Cirrhosis, Hx Gastroesophageal Reflux Disease, Hx Hepatitis Musculoskeletal Medical History: Denies Hx Arthritis Psychiatric Medical History: Reports: Hx Depression Infectious Medical History: Denies: Hx Hepatitis Past Surgical History: Reports: Hx Orthopedic Surgery - bilat knees, Other - Excision of melanoma from his anterior abdominal wall. Review of Systems - Review of Systems -: Yes ROS unobtainable due to patient's medical condition - Cannot obtain re view of symptoms due to patient's dementia Physical Exam - Vital signs Vitals: Resp BP Pulse Ox 20 128/85 H 98 02/09/20 15:04 02/09/20 15:04 02/09/20 15:04 Interpretation: Normal - General General appearance: Appears well, Alert - HEENT Head: Normocephalic, Atraumatic Eyes: Normal Pupils: PERRL - Respiratory Respiratory status: No respiratory distress Chest status: Nontender Breath sounds: Normal Chest palpation: Normal - Cardiovascular Rhythm: Irregularly irregular Heart sounds: Normal auscultation Murmur: No - Abdominal Inspection: Normal Distension: No distension Bowel sounds: Normal Tenderness: Nontender Organomegaly: No organomegaly - Back Back: Normal, Nontender - Extremities General upper extremity: Normal inspection, Nontender, Normal color, Normal ROM, Normal temperature General lower extremity: Normal inspection, Nontender, Normal color, Normal ROM, Normal temperature, Normal weight bearing. No: Jessica's sign - Neurological Cognition: Confused Orientation: Disoriented to place, Disoriented to time, Disoriented to events [place] Coma Scale Eye Opening: Spontaneous Kee Coma Scale Verbal: Confused Kee Coma Scale Motor: Obeys Commands Kee Coma Scale Total: 14 Speech: Normal Motor strength normal: LUE, RUE, LLE, RLE - Psychological Associated symptoms: Normal affect, Normal mood - Skin Skin Temperature: Warm Skin Moisture: Dry Skin Color: Normal Course - Re-evaluation Re-evalutation: 02/09/20 18:47 Patient presents with lower chest and upper abdominal pain. At this time laboratories do not significantly remarkable. EKG shows the patient had A. fib which is a known condition. He does have a new left bundle branch block. However the last EKG here is 4 years old and the morphology appears similar just that the QRS is slightly wider. I did call and discussed this with the patient's automobile brake bonder, Dr. Zapata. Since the patient is DNR, has 2 - troponins, is 89 years old, and does not appear in any distress me and Dr. Dalton decided at this time the best course of action was the place the patient on a Nitropaste patch and have him follow-up in the office for the EKG changes. At this time though imaging of the chest and is still pending and Dr. Cosme will follow up on this to make sure no further intervention is needed. - Vital Signs Vital signs: Temp Pulse Resp BP Pulse Ox 97.6 F 25 H 139/84 H 97 02/09/20 15:28 02/09/20 18:01 02/09/20 18:01 02/09/20 18:01 - Laboratory Results Result Diagrams: 02/09/20 15:15 02/09/20 15:15 Laboratory Results Interpreted: 02/09/20 02/09/20 02/09/20 15:15 15:15 15:15 MCV 103 H MCH 34.0 H Carbon Dioxide 34 H BUN 22 H NT-Pro-B Natriuret Pep 1300 H Critical Laboratory Results Reviewed: No Critical Results - Radiology Results Critical Radiology Results Reviewed: No Critical Results - EKG Interpretation by Me Rate: Normal - 96 Rhythm: A.Fib [place]/QRS: LBBB Discharge - Discharge Clinical Impression: Chest pain Qualifiers: Chest pain type: unspecified Qualified Code(s): R07.9 - Chest pain, unspecified Disposition: OTHER Referrals: SILVESTRE BRICEÑO MD [Primary Care Provider] - Follow up as needed
[2020-02-09] MEDS ORDERED: NITROGLYCERIN 5 MG (0.2 MG/HR) PATCH.TD24 TD ONE (18:41)
--- NOTE | 2020-02-09 19:04 | EKG REPORT ---
SEVERITY:- ABNORMAL ECG - ATRIAL FIBRILLATION, V-RATE 61-197 LEFT BUNDLE BRANCH BLOCK : Confirmed by: Brandy Navarro 09-Feb-2020 19:03:56
--- NOTE | 2020-02-09 19:33 | RADIOLOGY REPORT (SQ) ---
EXAM DESCRIPTION: CTA CHEST IMAGES COMPLETED DATE/TIME: 02/09/2020 7:18 pm REASON FOR STUDY: chest pain COMPARISON: 02/09/2020 TECHNIQUE: CT scan of the chest performed using helical scanning technique with dynamic intravenous contrast injection. Images reviewed with lung, soft tissue and bone windows. Reconstructed coronal and sagittal MPR images reviewed. Additional 3 dimensional post-processing performed to develop Maximal Intensity Projection images (NE P). All images stored on PACS. All CT scanners at this facility use dose modulation, iterative reconstruction, and/or weight based d osing when appropriate to reduce radiation dose to as low as reasonably achievable (ALARA). [facility]: Dose Right [facility]: CareDose [facility]: Dose Right [facility]: Teradose 4D [facility]: Predilytics CONTRAST TYPE AND DOSE: contrast/concentration: Isovue 350.00 mmol/ml; Total Contrast Delivered: 100 .0 ml; Total Saline Delivered: 69.3 ml Contrast bolus adequate for pulmonary arteries and aorta. RENAL FUNCTION: BUN 22; creatinine 0.85 RADIATION DOSE: CT Rad equipment meets quality standard of care and radiation dose reduction techniq ues were employed. CTDIvol: 13.5 - 25.5 mGy. DLP: 935 mGy-cm. . LIMITATIONS: None. FINDINGS: LUNGS AND PLEURA: No masses, infiltrates, or pneumothorax. No pleural effusions or pleura l calcifications. AORTA AND GREAT VESSELS: Ascending aortic aneurysm. Prominent pulmonary arteries. No dissection. HEART: No pericardial effusion. No significant coronary artery calcifications. PULMONARY ARTERIES: No emboli visualized in the main pulmonary arteries or the segmental branches. HILAR AND MEDIASTINAL STRUCTURES: No identified masses or abnormal nodes. HARDWARE: None in the chest. UPPER ABDOMEN: See separate report of the CT of the abdomen. THYROID AND OTHER SOFT TISSUES: No masses. No adenopathy. BONES: Degenerative changes are seen of the spine noting chronic wedge compression deformity of T10 v ertebral body. 3D MIPS: Confirm above findings. OTHER: No other significant finding. IMPRESSION: No pulmonary embolus. No acute cardiopulmonary abnormality. COMMENT: Quality ID # [id number]: Final reports with documentation of one or more dose reduction techniques (e.g., Automated exposure control, adjustment of the mA and/or kV according to patient size, use of iterative reconstruction technique) TECHNICAL DOCUMENTATION: JOB ID: [id number] [employer]- All Rights Reserved Reading location - IP/workstation name: [email or web address]
--- NOTE | 2020-02-09 19:42 | RADIOLOGY REPORT (SQ) ---
EXAM DESCRIPTION: CTA ABDOMEN/PELVIS W WO IMAGES COMPLETED DATE/TIME: 02/09/2020 7:18 pm REASON FOR STUDY: upper abd pain COMPARISON: None. TECHNIQUE: CT scan of the abdominal aorta extending to the iliac bifurcation performed with intraven ous contrast using helical scanning technique with dynamic intravenous contrast injection. Images rev iewed with lung, soft tissue, and bone windows. Reconstructed coronal and sagittal MPR images reviewe d. All images stored on PACS. Advanced 3D imaging as volume rendering, MIPS, SSD performed? yes All CT scanners at this facility use dose modulation, iterative reconstruction, and/or weight based d osing when appropriate to reduce radiation dose to as low as reasonably achievable (ALARA). [facility]: Dose Right [facility]: CareDose [facility]: Dose Right [facility]: Teradose 4D [facility]: [employer] CONTRAST TYPE AND DOSE: 69 mL Omnipaque 350- low osmolar. RENAL FUNCTION: BUN 22; creatinine 0.85 LIMITATIONS: None. FINDINGS: NON-CONTRASTED IMAGING: Post contrast images only. POST-CONTRAST IMAGING: AORTA AND VESSELS: No aneurysm. No dissection. Atherosclerotic vascular calcifications are present to include the origins of the major visceral branches. LUNG BASES: No significant findings. No nodules or infiltrates. LIVER: Normal size. No masses or dilated ducts. SPLEEN: Normal size. No focal lesions. PANCREAS: No masses. No significant calcifications. No adjacent inflammation or peripancreatic fluid collections. Pancreatic duct not dilated. GALLBLADDER: Decompressed. ADRENAL GLANDS: No significant masses or asymmetry. RIGHT KIDNEY AND URETER: No mass, calculi or urinary tract obstruction. LEFT KIDNEY AND URETER: No mass, calculi or urinary tract obstruction. RETROPERITONEUM: No retroperitoneal adenopathy, hemorrhage or masses. BOWEL AND PERITONEAL CAVITY: Colonic diverticula without focal inflammatory changes. A loop of small bowel protrudes into an umbilical hernia without evidence of obstruction or incarceration. APPENDIX: Normal. ABDOMINAL WALL: Umbilical hernia as above. No inguinal hernias. Status post bilateral inguinal mesh herniorrhaphy is. BONY STRUCTURES: Degenerative changes are seen of the hips and spine. No suspicious lytic or blastic osseous lesions. 3-D IMAGING: Confirms the above findings. OTHER: The bladder appears markedly distended. IMPRESSION: No abdominal aortic aneurysm, dissection, or significant stenosis. Incidental finding o f a loop of small bowel protruding into an umbilical hernia without evidence of obstruction or incarc eration. Additional chronic and incidental findings as detailed above. TECHNICAL DOCUMENTATION: JOB ID: [id number] Quality ID # [id number]: Final reports with documentation of one or more dose reduction techniques (e.g., Au tomated exposure control, adjustment of the mA and/or kV according to patient size, use of iterative reconstruction technique) 2010 [employer]- All Rights Reserved Reading location - IP/workstation name: [email or web address]
[2020-02-09] MEDS ORDERED: HYDROCODONE/ACETAMINOPHEN 5-325 MG (6 TAB/ER DISP) PO PRN (22:10)
[2020-02-09 22:42] VITALS: BP 110/65
== END 2020-02-09 22:20 | disposition home or self-care (01) ==
LOC: ER 14:35
DX: R07.9 Chest pain, unspecified (principal); R10.11 Right upper quadrant pain; R10.12 Left upper quadrant pain; I50.9 Heart failure, unspecified; I11.0 Hypertensive heart disease with heart failure; J44.9 Chronic obstructive pulmonary disease, unspecified; I25.2 Old myocardial infarction; E78.00 Pure hypercholesterolemia, unspecified
CPT/HCPCS: 93005; 99285; 36415; 83690; 85025; 85610; 80053; 81001; 84484; 83880; 71045; 71275; 74174; 93010; J3490

== ENCOUNTER 2020-02-25 13:46 | Inpatient (IN) | payer OTHER, MEDICARE ==
[2020-02-25 14:48] LABS: VENOUS BLOOD BASE EXCESS 2.4 mmol/L; VENOUS BLOOD HCO3 30.8 mmol/L (20-32); VENOUS BLOOD PCO2 59.3 mmHg (35-63); VENOUS BLOOD PH 7.33 (7.30-7.42)
[2020-02-25 14:51] LABS: ABSOLUTE LYMPHOCYTES (AUTO) 0.4 10^3/uL (0.5-4.7); ABSOLUTE MONOCYTES (AUTO) 0.5 10^3/uL (0.1-1.4); ABSOLUTE NEUT (AUTO) 5.3 10^3/uL (1.7-8.2); BASOPHILS % (AUTO) 0.3 % (0-2); EOSINOPHILS % (AUTO) 0.1 % (0-6); HEMATOCRIT 42.9 % (37.9-51.0); HEMOGLOBIN 14.7 g/dL (13.5-17.0); LYMPHOCYTES % (AUTO) 6.5 % (13-45); MEAN CORPUSCULAR HEMOGLOBIN 34.1 pg (27.0-33.4); MEAN CORPUSCULAR HGB CONC 34.2 g/dL (32.0-36.0); MEAN CORPUSCULAR VOLUME 100 fl (80-97); MONOCYTES % (AUTO) 8.7 % (3-13); PLATELET COUNT 130 10^3/uL (150-450); RED CELL DISTRIBUTION WIDTH 12.8 % (11.5-14.0); SEGMENTED NEUTROPHILS % (AUTO) 84.4 % (42-78); TOTAL CELLS COUNTED % (AUTO) 100 %; WHITE BLOOD COUNT 6.3 10^3/uL (4.0-10.5)
--- NOTE | 2020-02-25 14:58 | RADIOLOGY REPORT (SQ) ---
EXAM DESCRIPTION: CHEST SINGLE VIEW IMAGES COMPLETED DATE/TIME: 02/25/2020 1:13 pm REASON FOR STUDY: shortness of breathe COMPARISON: EXAM PARAMETERS: NUMBER OF VIEWS: One view. TECHNIQUE: Single frontal radiographic view of the chest acquired. RADIATION DOSE: NA LIMITATIONS: None. FINDINGS: LUNGS AND PLEURA: Lungs are hyperinflated. Developing consolidation at the right lung bas e. No pleural effusion or pneumothorax. MEDIASTINUM AND HILAR STRUCTURES: No masses. Contour normal. HEART AND VASCULAR STRUCTURES: Heart normal in size. Normal vasculature. BONES: No acute findings. HARDWARE: None in the chest. OTHER: No other significant finding. IMPRESSION: Developing consolidation at the right lung base suspicious for infectious/ inflammatory process. Lungs are hyperinflated which can be seen with obstructive lung disease. TECHNICAL DOCUMENTATION: JOB ID: [id number] 2010 [employer]- All Rights Reserved Reading location - IP/workstation name: [email or web address]
[2020-02-25 15:01] LABS: APPEARANCE,URINE CLEAR; BILIRUBIN,URINE NEGATIVE (NEGATIVE); COLOR,URINE YELLOW; GLUCOSE, URINE NEGATIVE (NEGATIVE); KETONES,URINE NEGATIVE (NEGATIVE); LEUKOCYTE ESTERASE,URINE NEGATIVE (NEGATIVE); NITRITE,URINE NEGATIVE (NEGATIVE); PROTEIN,URINE NEGATIVE (NEGATIVE); URINE SPECIFIC GRAVITY 1.016; UROBILINOGEN,URINE NEGATIVE mg/dL (<2.0)
[2020-02-25 15:12] LABS: ALBUMIN 3.6 g/dL (3.5-5.0); ALKALINE PHOSPHATASE 82 U/L (38-126); ASPARTATE AMINO TRANSFERASE 34 U/L (17-59); BILIRUBIN,DIRECT 0.1 mg/dL (0.0-0.4); BILIRUBIN,TOTAL 0.6 mg/dL (0.2-1.3); BLOOD UREA NITROGEN 27 mg/dL (7-20); CALCIUM 9.4 mg/dL (8.4-10.2); CARBON DIOXIDE 34 mmol/L (22-30); CHLORIDE 100 mmol/L (98-107); GLUCOSE 137 mg/dL (75-110); TOTAL PROTEIN 6.7 g/dL (6.3-8.2)
[2020-02-25 15:20] LABS: ANION GAP 6 (5-19)
[2020-02-25] MEDS ORDERED: CEFTRIAXONE 1 GM/D5W RTU 1 GM/50 ML RTUPB IV ONE (15:20)
[2020-02-25] MEDS ORDERED: NORMAL SALINE 1000 ML 1,000 ML IV ONE ×2 (15:20→18:25)
[2020-02-25] MEDS ORDERED: AZITHROMYCIN INJ 500 MG VIAL IV ONE (15:21)
--- NOTE | 2020-02-25 16:09 | EKG REPORT ---
SEVERITY:- ABNORMAL ECG - ATRIAL FIBRILLATION, V-RATE 58-79 LEFT BUNDLE BRANCH BLOCK : Confirmed by: Franklin Pugh MD 25-Feb-2020 16:09:00
[2020-02-25] MEDS ORDERED: ONDANSETRON 4 MG TAB.RAPDIS PO PRN (18:08)
[2020-02-25] MEDS ORDERED: ACETAMINOPHEN 325 MG TABLET PO PRN (18:08)
[2020-02-25] MEDS ORDERED: ALBUTEROL SULFATE 0.083% NEB 2.5 MG/3 ML AMPUL NEB PRN (18:08)
[2020-02-25] MEDS ORDERED: GUAIFENESIN SYRP 200 MG/10 ML UDC PO PRN (18:17)
[2020-02-25 18:25] LABS: C-REACTIVE PROTEIN 49.2 mg/L (<10.0)
[2020-02-25] MEDS ORDERED: DEXAMETHASONE SOD PHOS INJ 10 MG/1 ML VIAL IV SCH (18:30)
[2020-02-25] MEDS ORDERED: APIXABAN 5 MG TABLET PO SCH (18:30)
--- NOTE | 2020-02-25 19:11 | ER Document Report ---
Entered by AL SIMMS SCRIBE 02/25/20 [id number] Acting as scribe for:ROBBIN NICHOLE MD ED General - General Chief Complaint: Breathing Difficulty Stated Complaint: TROUBLE BREATHING Information source: [facility] Records Cannot obtain history due to: Dementia Notes: This 89 year old male patient with dementia presents to the emergency department today with complaints of shortness of breath. Patient does not answered any questions, AOx0 so history is limited. EMS reports a room air oxygen saturation of 73% when they arrived. They did a rapid COVID-19 test which came back positive. TRAVEL OUTSIDE OF THE [place] IN LAST 30 DAYS: No - Related Data Allergies/Adverse Reactions: No Known Allergies Allergy (Verified 02/25/20 17:36) Past Medical History - General Information source: [facility] Records Cannot obtain history due to: Dementia - Social History Smoking Status: Unknown if Ever Smoked Family History: Reviewed & Not Pertinent - Past Medical History Cardiac Medical History: Reports: Hx Atrial Fibrillation, Hx Congestive Heart Failure, Hx DVT - Questionable DVT, 1980s., Hx Heart Attack, Hx Hypercholesterolemia, Hx Hypertension Pulmonary Medical History: Reports: Hx COPD Malignancy Medical History: Reports Hx Skin Cancer - Status post excision of melanoma from his anterior abdominal wall. Psychiatric Medical History: Reports: Hx Depression Past Surgical History: Reports: Hx Orthopedic Surgery - bilat knees, Other - E xcision of melanoma from his anterior abdominal wall. Review of Systems - Review of Systems -: Yes ROS unobtainable due to patient's medical condition Physical Exam - Vital signs Vitals: Pulse Ox 98 02/25/20 13:51 Course - Re-evaluation Re-evalutation: 02/25/20 19:00 Patient has encephalopathy, dementia and is unable to answer any questions accurately. Patient often will not answer any question at all. 02/25/20 19:02 Because of patient's presentation of having a low oxygen saturation at the residence and shortness of breath as the reason for the EMS call and affected there was a fever wherein Tylenol has been given once patient arrived to the ED as well as patient was placed on nasal cannula O2 to improve the saturations that reportedly were around 88 when EMS arrived at the scene. Because of that presentation and a chest x-ray showing a pneumonia in the right lung base and a low oxygen saturation with an elevated lactic acid patient was cultured and IV antibiotics were given to treat the pneumonia and a consideration for sepsis. - Vital Signs Vital signs: Temp Pulse Resp BP Pulse Ox 98.7 F 13 114/64 100 02/25/20 16:00 02/25/20 17:02 02/25/20 17:02 02/25/20 17:02 02/25/20 19:01 Vital signs shows a afebrile state with normal blood pressure pulse ox and respiratory rate. - Laboratory Results Result Diagrams: 02/25/20 14:15 02/25/20 14:15 Laboratory Results Interpreted: 02/25/20 02/25/20 02/25/20 14:15 14:15 14:15 RBC 4.30 L MCV 100 H MCH 34.1 H Plt Count 130 L Lymph % (Auto) 6.5 L Absolute Lymphs (auto) 0.4 L Seg Neutrophils % 84.4 H Carbon Dioxide 34 H BUN 27 H Glucose 137 H POC Glucose Lactic Acid 2.4 H C-Reactive Protein 02/25/20 02/25/20 14:33 17:47 RBC MCV MCH Plt Count Lymph % (Auto) Absolute Lymphs (auto) Seg Neutrophils % Carbon Dioxide BUN Glucose POC Glucose 150 H Lactic Acid C-Reactive Protein 49.2 H 02/25/20 19:01 Abnormal laboratories include a C-reactive protein of 49 a glucose of 150 and a lactic acid of 2.4 glucose of 137 and a BUN of 27, and a carbon dioxide of 34. There are no significant critical laboratories at this time. Critical Laboratory Results Reviewed: No Critical Results - Radiology Results Radiology Results Interpreted: 02/25/20 19:04 Chest X-Ray 02/25/20 13:51 IMPRESSION: Developing consolidation at the right lung base suspicious for infectious/ inflammatory process. Lungs are hyperinflated which can be seen with obstructive lung disease. Critical Radiology Results Reviewed: No Critical Results Attending or Supervising Physician who Reviewed Radiology: ROBBIN NICHOLE - EKG Interpretation by Me Additional EKG results interpreted by me: 02/25/20 19:08 Twelve-lead EKG done today shows atrial fibrillation heart rate 62. Ventricular rate varies between 58 and 79 there is left axis deviation and left bundle branch block noted. OR interval is variable QRS interval is prolonged within left bundle branch block and acute insult QT interval is within normal limits no evidence for an acute STEMI. Discharge - Discharge Clinical Impression: Pneumonia, Lab test positive for detection of COVID-19 virus, Atrial fibrillation, Low oxygen saturation COPD (chronic obstructive pulmonary disease) Qualifiers: COPD type: COPD with acute lower respiratory infection Qualified Code(s): J44.0 - Chronic obstructive pulmonary disease with (acute) lower respiratory infection Condition: Serious Disposition: ADMITTED INPATIENT Admitting Provider: concha Unit Admitted: IMCU I personally performed the services described in the documentation, reviewed and edited the documentation which was dictated to the scribe in my presence, and it accurately records my words and actions.
--- NOTE | 2020-02-25 19:16 | PDOC H&P ---
History of Present Illness Admission Date/PCP: SILVESTRE BRICEÑO MD Patient complains of: Shortness of breath, cough, fatigue, decreased mental status. History of Present Illness: SILVESTRE DELGADILLO is a 89 year old male with past medical history dementia, COPD, Afib and CHF who presented to [facility] via EMS for evaluation of increased fatigue, shortness of breath, cough and decreased mental status. Patient with hx dementia thus is a poor historian. Information documented in HPI obtained by EMS notes, ED noted and conversation with pt's Valentine . Per pt's both the patient and herself have had 1 week hx shortness of breath, cough and runny nose. Pt expressed increased severity of symptoms and decreased mental status 1 day ago and his was unable to get him out of bed this morning, prompting her to call EMS. Per EMS pt O2 sat 80% on arrival to his house, this quickly improved with 4L NC. Pt with + rapid COVID test via EMS. On arrival to ED pt was responding minimally with noted fever (102), tachypnea, and low O2 sats which improved with 4 L nasal cannula. Chemistry significant for lactic acid 2.4. Blood gas within normal limits. Chest x-ray notable for developing consolidation at the right lung base suspicious for infectious in flammatory process with hyperinflated lungs consistent with obstructive lung disease. Patient was treated with dose of ceftriaxone and azithromycin, Tylenol for fever, and 1L bolus NS. He has since become afebrile and lactic acid now WNL. Hospitalist team is contacted for further treatment and evaluation. Past Medical History Cardiac Medical History: Reports: Atrial Fibrillation, Congestive Heart Failure, DVT - Questionable DVT, 1980s., Myocardial Infarction, Hyperlipidema, Hypertension Denies: Pulmonary Embolism Pulmonary Medical History: Reports: Chronic Obstructive Pulmonary Disease (COPD) Neurological Medical History: Denies: Seizures Endocrine Medical History: Denies: Diabetes Mellitus Type 1, Diabetes Mellitus Type 2, Hyperthyroidism, Hypothyroidism Malignancy Medical History: Reports: Skin Cancer - Status post excision of melanoma from his anterior abdominal wall. GI Medical History: Denies: Cirrhosis, Gastroesophageal Reflux Disease, Hepatitis Musculoskeltal Medical History: Denies: Arthritis Psychiatric Medical History: Reports: Dementia, Depression Hematology: Denies: Anemia Past Surgical History Past Surgical History: Reports: Orthopedic Surgery - bilat knees, Other - Excision of melanoma from his anterior abdominal wall. Social History Information Source: Patient Lives with: Spouse/Significant other Smoking Status: Former Smoker Electronic Cigarette use?: No Frequency of Alcohol Use: Rare Hx Recreational Drug Use: No Drugs: None Hx Prescription Drug Abuse: No - Advance Directive Resuscitation Status: Do Not Resuscitate Family History Family History: CAD, Hypertension Parental Family History Reviewed: Yes Children Family History Reviewed: Yes Sibling(s) Family History Reviewed.: Yes Medication/Allergy Home Medications: Albuterol Sulfate [Proair HFA] 2 puff IH QIDP PRN 02/28/16 Budesonide/Formoterol Fumarate [Symbicort HFA 160-4.5 mcg Inhaler 6 gm] 1 puff IH Q12 02/28/16 Montelukast Sodium 10 mg PO DAILY 02/28/16 Tiotropium [place] [Spiriva Handihaler 18 mcg/dose (30 Dose)] 1 cap IH DAILY 02/28/16 Apixaban [Eliquis 2.5 mg Tablet] 2.5 mg PO BID #60 tablet 03/06/16 Azithromycin [Zithromax 250 mg Tablet] 500 mg PO QHS #5 tablet 03/06/16 Bisacodyl [Dulcolax 10 mg Supp.rect] 10 mg HI DAILYP PRN #30 supp.rect 03/06/16 Cefuroxime Axetil [Ceftin 500 mg Tablet] 500 mg PO Q12 #10 tablet 03/06/16 Diltiazem HCl [Cardizem Cd 180 mg Capsule] 180 mg PO Q12 #60 capsule.cr 03/06/16 Furosemide [Lasix 20 mg Tablet] 20 mg PO DAILY #30 tablet 03/06/16 Guaifenesin [Mucinex Sr 600 mg Tablet.sa] 1,200 mg PO Q12 #10 tablet.sa 03/06/16 Levalbuterol HCl [Xopenex Neb 0.63 mg/3 ml Ampul] 0.63 mg NEB RTQ4HP PRN #30 vial.neb 03/06/16 Lisinopril [Prinivil 5 mg Tablet] 2.5 mg PO Q12 #60 tablet 03/06/16 Prednisone [Deltasone 20 mg Tablet] 40 mg PO DAILY #30 tablet 03/06/16 Allergies/Adverse Reactions: No Known Allergies Allergy (Verified 02/25/20 17:36) Review of Systems ROS unobtainable: Other - Limited due to mental status, documentd as per my discusison with his and EMS documentation Constitutional: PRESENT: fatigue, fever(s), weakness Cardiovascular: ABSENT: chest pain, palpitations Respiratory: PRESENT: as per HPI Gastrointestinal: ABSENT: diarrhea, vomiting Genitourinary: ABSENT: difficulty urinating Neurological: PRESENT: weakness Physical Exam Vital Signs: Temp Pulse Resp BP Pulse Ox 98.7 F 13 114/64 100 02/25/20 16:00 02/25/20 17:02 02/25/20 17:02 02/25/20 17:02 Intake & Output 02/24/20 02/25/20 02/26/20 06:59 06:59 06:59 Intake Total 1050 Balance 1050 Weight 73 kg General appearance: PRESENT: hard of hearing, other - Demented, but cooperative Head exam: PRESENT: atraumatic, normocephalic Eye exam: PRESENT: EOMI. ABSENT: scleral icterus Mouth exam: PRESENT: dry mucosa Neck exam: PRESENT: full ROM. ABSENT: JVD, tenderness Respiratory exam: PRESENT: decreased breath sounds, rhonchi, wheezes, other - O2 sat WNL on 2L NC. ABSENT: chest wall tenderness, tachypnea Cardiovascular exam: PRESENT: irregular rhythm - rate in 50s GI/Abdominal exam: PRESENT: soft. ABSENT: tenderness Rectal exam: PRESENT: deferred Extremities exam: PRESENT: +2 edema - bilaterally extending into thighs bilaterally. ABSENT: tenderness Musculoskeletal exam: PRESENT: full ROM. ABSENT: deformity Neurological exam: PRESENT: alert, altered - Demented at his baseline, awake, oriented to person. ABSENT: oriented to place, oriented to time Psychiatric exam: PRESENT: appropriate affect Skin exam: PRESENT: dry, other - Lymphedema bilateral LE. skin dry and cracking consistent with chronic swelling. Results Laboratory Results: 02/25/20 14:15 02/25/20 14:15 02/25/20 02/25/20 02/25/20 14:15 14:15 14:15 WBC 6.3 RBC 4.30 L Hgb 14.7 Hct 42.9 MCV 100 H MCH 34.1 H MCHC 34.2 RDW 12.8 Plt Count 130 L Seg Neutrophils % 84.4 H VBG pH 7.33 VBG pCO2 59.3 VBG HCO3 30.8 VBG Base Excess 2.4 Sodium 139.7 Potassium 4.0 Chloride 100 Carbon Dioxide 34 H Anion Gap 6 BUN 27 H Creatinine 0.98 Est GFR ( Amer) > 60 Glucose 137 H Lactic Acid Calcium 9.4 Total Bilirubin 0.6 AST 34 Alkaline Phosphatase 82 Total Protein 6.7 Albumin 3.6 Urine Color Urine Appearance Urine pH Ur Specific [place] Urine Protein Urine Glucose (UA) Urine Ketones Urine Blood Urine Nitrite Ur Leukocyte Esterase Urine WBC (Auto) Urine RBC (Auto) 02/25/20 02/25/20 02/25/20 14:15 14:15 17:47 WBC RBC Hgb Hct MCV MCH MCHC RDW Plt Count Seg Neutrophils % VBG pH VBG pCO2 VBG HCO3 VBG Base Excess Sodium Potassium Chloride Carbon Dioxide Anion Gap BUN Creatinine Est GFR ( Amer) Glucose Lactic Acid 2.4 H 1.4 Calcium Total Bilirubin AST Alkaline Phosphatase Total Protein Albumin Urine Color YELLOW Urine Appearance CLEAR Urine pH 5.0 Ur Specific [place] 1.016 Urine Protein NEGATIVE Urine Glucose (UA) NEGATIVE Urine Ketones NEGATIVE Urine Blood NEGATIVE Urine Nitrite NEGATIVE Ur Leukocyte Esterase NEGATIVE Urine WBC (Auto) 1 Urine RBC (Auto) 2 Impressions: Chest X-Ray 02/25/20 13:51 IMPRESSION: Developing consolidation at the right lung base suspicious for infectious/ inflammatory process. Lungs are hyperinflated which can be seen with obstructive lung disease. Assessment and Plan - Diagnosis (1) Pneumonia due to COVID-19 virus Is this a current diagnosis for this admission?: Yes Plan: Patient with increasing shortness of breath, cough, fatigue and decreased mental status x1 day. Per EMS O2 sat in 80s on initial evaluation. On my evaluation O2 sat 100% on 4 L nasal cannula. CXR: Developing consolidation at the right lung base suspicious for infectious/inflammatory process. Hyperinflated lungs. Confirmed rapid Covid as per EMS today. Repeat rapid Covid in the emergency department is pending. Inflammatory markers: Ferritin, LDH, CRP, D-dimer pending, will track for progress. Dexamethasone IV, vitamin C, vitamin D, zinc Consider ivermectin. Bloodcultures pending. Sputum cultures pending Patient is provided supplemental oxygen as needed maintain saturations greater than 89%. Patient is empirically placed on Ceftriaxone and Azithromycin. Scheduled and as needed nebulizer treatments. He is placed on Robitussin as needed. Pulmonary toilet is encouraged with incentive spirometer, flutter valve, early ambulation. (2) Acute and chronic respiratory failure Qualifiers: Respiratory failure complication: hypoxia Qualified Code(s): J96.21 - Acute and chronic respiratory failure with hypoxia Is this a current diagnosis for this admission?: Yes Plan: Presented with 1 week hx cough, sob, runny nose; 1 day hx increased SOB, fatigue, decreased mental status On my evaluation O2 sat 100% on 4 L nasal cannula. As per EMS O2 sat in the 80s initially. Cause is likely multifocal in nature: Primarily pneumonia secondary to COVID-19 infection, with congestive heart failure and COPD being a factor. Treatment as above. (3) Sepsis Qualifiers: Sepsis type: Streptococcus, unspecified Sepsis acute organ dysfunction status: without acute organ dysfunction Qualified Code(s): A40.9 - Streptococcal sepsis, unspecified Is this a current diagnosis for this admission?: Yes Plan: On initial presentation SEPSIS criteria met given following: - Febrile 102.3 - Tachypnea 22 - Confirmed COVID 19 test with pneumonia - Lactic acidosis 2.4 Patient received Tylenol and bolus of IV fluid in ED. Since has remained afebrile, heart rate within normal limits, and lactic acidosis has resolved. Blood cultures are pending. Treatment as per #1 (4) COPD (chronic obstructive pulmonary disease) Qualifiers: COPD type: COPD with acute lower respiratory infection Qualified Code(s): J44.0 - Chronic obstructive pulmonary disease with (acute) lower respiratory infection Is this a current diagnosis for this admission?: Yes Plan: On 2-3L NC home O2. CXR: Notable for hyperinflation. Unable to differentiate if in exacerbation at this time. Abx as above, pending BC consider switching to Levaquin. Breathing tx as above. (5) History of congestive heart failure Is this a current diagnosis for this admission?: Yes Plan: History of CHF. Certainly may play a role in patient's hypoxia. Most recent Echo per our records: 02/2016 Left ventricle normal LVEF 45% to 50%. -We will look for more recent echocardiogram. Discussed with , previously followed by Dr. Prasad in outpatient setting. Pro BNP on 02/09/2020 1300, will repeat. Cnt lasix 20mg p.o. for now. -Of note patient meets sepsis protocol, and thus has received a 1 L bolus of fluids and now gentle IVF. May require IV lasix following IVF. Consider cardiology consult. (6) Atrial fibrillation Qualifiers: Atrial fibrillation type: unspecified Qualified Code(s): I48.91 - Unspecified atrial fibrillation Is this a current diagnosis for this admission?: Yes Plan: History of atrial fibrillation, rate controlled, on chronic anticoagulation. Medications include diltiazem 180 mg daily, Apaxiban 5 mg BID. Continue home medications. On telemetry. Outpatient PCP and cardiology follow-up. (7) Dementia Qualifiers: Dementia type: unspecified type Dementia behavioral disturbance: without behavioral disturbance Qualified Code(s): F03.90 - Unspecified dementia without behavioral disturbance Is this a current diagnosis for this admission?: Yes Plan: Hx dementia with 1 day decreased mental status. Pt poor historian contacted Valentine who provided HPI information. Of note patient lives at home with his Iris who acts as his primary caregiver. They do have a "aide" who reports the house 3 times a week, helps with chores around the house, helps with groceries and cooking, but does not provide any health care. Given patient's state of health I do believe that he would benefit greatly from home health care possibly even home hospice, pending patient's overall prognosis and presentation throughout hospital course. Will contact case management to provide patient and patient's with home health resources. Plan to discuss potential for home hospice with patient's . - Time Time Spent with patient: 35 or more minutes Medications reviewed and adjusted accordingly: Yes Anticipated Discharge Disposition: Home with Home Health Anticipated Discharge Timeframe: TBD - Inpatient Certification Based on my medical assessment, after consideration of the patient's comorbidities, presenting symptoms, or acuity I expect that the services needed warrant INPATIENT care.: Yes I certify that my determination is in accordance with my understanding of Medicare's requirements for reasonable and necessary INPATIENT services [42 CFR 412.3e].: Yes Medical Necessity: Failure to Improve With Outpatient Therapy, Significant Comorbidiites Make Outpatient Treatment Too Risky, Need Close Monitoring Due to Risk of Patient Decompensation, Need For Continuous Telemetry Monitoring, Need for Nebulizer Therapy and Monitoring of Response, Need for IV Antibiotics, Risk of Complication if Not Cared For in Hospital Post Hospital Care: D/C or Transfer Summary
[2020-02-25] MEDS: IPRATROPIUM/ALBUTEROL 0.5-2.5 MG/3 ML AMPUL NEB SCH (21:43)
[2020-02-25] MEDS: DEXAMETHASONE SOD PHOS INJ 10 MG/1 ML VIAL IV SCH (21:44)
[2020-02-25] MEDS: APIXABAN 5 MG TABLET PO SCH (21:44)
[2020-02-26] MEDS: IPRATROPIUM/ALBUTEROL 0.5-2.5 MG/3 ML AMPUL NEB SCH ×5 (00:15→16:05)
[2020-02-26 09:40] LABS: HEMATOCRIT 40.2 % (37.9-51.0); HEMOGLOBIN 13.6 g/dL (13.5-17.0); MEAN CORPUSCULAR HGB CONC 33.9 g/dL (32.0-36.0); MEAN CORPUSCULAR VOLUME 100 fl (80-97); PLATELET COUNT 107 10^3/uL (150-450); RED BLOOD COUNT 4.02 10^6/uL (4.35-5.55); RED CELL DISTRIBUTION WIDTH 12.7 % (11.5-14.0)
[2020-02-26] MEDS ORDERED: AZITHROMYCIN 500 MG in DEXTROSE 5%-WATER 250 ML IV SCH (10:00)
[2020-02-26] MEDS ORDERED: CEFTRIAXONE 1 GM/D5W RTU 1 GM/50 ML RTUPB IV SCH (10:00)
[2020-02-26 10:07] LABS: ANION GAP 6 (5-19); BLOOD UREA NITROGEN 20 mg/dL (7-20); CALCIUM 8.9 mg/dL (8.4-10.2); CARBON DIOXIDE 28 mmol/L (22-30); CHLORIDE 106 mmol/L (98-107); GLUCOSE 128 mg/dL (75-110); POTASSIUM 4.4 mmol/L (3.6-5.0)
[2020-02-26] MEDS: ZINC SULFATE 220 MG CAPSULE PO SCH (11:25)
[2020-02-26] MEDS: FUROSEMIDE 20 MG TABLET PO SCH (11:25)
[2020-02-26] MEDS: ASCORBIC ACID 500 MG TABLET PO SCH ×3 (11:25→17:44)
[2020-02-26] MEDS: CHOLECALCIFEROL (D3) 1,000 UNIT (25 MCG) TABLET PO SCH (11:25)
[2020-02-26] MEDS: DILTIAZEM HCL 180 MG CAPSULE.CR PO SCH (11:26)
[2020-02-26] MEDS: APIXABAN 5 MG TABLET PO SCH ×2 (11:26→22:22)
[2020-02-26] MEDS ORDERED: LORAZEPAM INJ 2 MG/1 ML VIAL IV ONE (14:07)
[2020-02-26] MEDS ORDERED: RISPERIDONE 1 MG TAB.RAPDIS PO PRN (14:48)
[2020-02-26] MEDS: LEVOFLOXACIN 750 MG/D5W RTU 750 MG/150 ML RTUPB IV SCH (14:55)
[2020-02-26] MEDS ORDERED: IPRATROPIUM/ALBUTEROL 0.5-2.5 MG/3 ML AMPUL NEB PRN (16:13)
[2020-02-26] MEDS ORDERED: HALOPERIDOL LACTATE INJ 5 MG/1 ML VIAL IV ONE (16:14)
--- NOTE | 2020-02-26 17:18 | PDOC PROGRESS REPORT ---
Subjective Date:: 02/26/20 Subjective:: SILVESTRE DELGADILLO is a 89 year old male with past medical history dementia, COPD, Afib and CHF with covid-19 related pneumonia, acute on chronic respiratory failure and SEPSIS. Hospital day 2: I am contacted by the nurse informing me that patient has become agitated is pulling at his IV lines, nasal cannula, pulse ox. Additionally she tells me that the patient from the emergency department there was noted rather significant amount of blood in his Wright catheter suspect this is from trauma with the placement of the catheter. On my evaluation patient's presentation consistent with delirium. He does appear agitated, though seems to calm down when spoken to in a soft manner. He is awake but is oriented to self only. He is unable to answer ROS questions or provide me with any subjective information. Contacted patient's Iris at . She tells me that at patient's baseline he is oriented to himself and her, but is not oriented to other people, time, or situation. There have been multiple occasions where he has tried to leave the house to which she has put bills on the doors to alert her when he tries to leave. Additionally she tells me that her son Regina has been requesting that they move into a assisted living facility. She gave me her son dianna phone number and give me permission to update him on his father. Updated the patient's on patient's presentation. She seems to be rather understanding. Additionally we discussed different options for her to consider moving forward keeping in mind both her and the patient's safety. We briefly discussed home health vs SNF and assisted living facility options as well. I have placed an order for case management to contact the as well to assess for needs and provide further information. Reason For Visit: COVID-19 PNEMONIA, COPD, SEPSIS Physical Exam Vital Signs: Temp Pulse Resp BP Pulse Ox 98.7 F 18 131/91 H 99 02/25/20 16:00 02/26/20 06:30 02/26/20 06:30 02/26/20 06:30 Intake & Output 02/25/20 02/26/20 02/27/20 06:59 06:59 06:59 Intake Total 2049 50 Balance 2049 50 Weight 73 kg 73 kg General appearance: PRESENT: disheveled, hard of hearing. ABSENT: cooperative Eye exam: PRESENT: other - Cataract apperance bilaterally Mouth exam: PRESENT: dry mucosa Neck exam: PRESENT: full ROM. ABSENT: JVD Respiratory exam: PRESENT: decreased breath sounds, rhonchi, wheezes, other - O2 sat WNL 2L NC Cardiovascular exam: PRESENT: irregular rhythm. ABSENT: tachycardia GI/Abdominal exam: PRESENT: normal bowel sounds, soft Gentrourinary exam: PRESENT: indwelling catheter - With noted blood in catheter. Extremities exam: PRESENT: other - Chronic lymphedema noted bilateral lower extremities. Associated skin is dry and cracking though without redness or warmth. Musculoskeletal exam: PRESENT: full ROM Neurological exam: PRESENT: altered Psychiatric exam: PRESENT: agitated Skin exam: PRESENT: dry, other - Scattered ecchymotic areas over bilateral upper extremities.. ABSENT: rash Results Laboratory Results: 02/26/20 08:32 02/26/20 08:32 02/25/20 02/25/20 02/25/20 17:47 17:47 21:10 WBC RBC Hgb Hct MCV MCH MCHC RDW Plt Count Sodium Potassium Chloride Carbon Dioxide Anion Gap BUN Creatinine Est GFR ( Amer) Glucose Lactic Acid 1.4 1.3 Calcium Ferritin 252.00 C-Reactive Protein 49.2 H 02/26/20 02/26/20 08:32 08:32 WBC 4.0 RBC 4.02 L Hgb 13.6 Hct 40.2 MCV 100 H MCH 34.0 H MCHC 33.9 RDW 12.7 Plt Count 107 L Sodium 140.4 Potassium 4.4 Chloride 106 Carbon Dioxide 28 Anion Gap 6 BUN 20 Creatinine 0.59 Est GFR ( Amer) > 60 Glucose 128 H Lactic Acid Calcium 8.9 Ferritin C-Reactive Protein 02/26/20 08:32 NT-Pro-B Natriuret Pep 937 H Impressions: Chest X-Ray 02/25/20 13:51 IMPRESSION: Developing consolidation at the right lung base suspicious for infectious/ inflammatory process. Lungs are hyperinflated which can be seen with obstructive lung disease. Assessment and Plan - Diagnosis (1) Pneumonia due to COVID-19 virus Is this a current diagnosis for this admission?: Yes Plan: 98% on 3L NC. Patient with increasing shortness of breath, cough, fatigue and decreased mental status x1 day. Per EMS O2 sat in 80s on initial evaluation. CXR: Developing consolidation at the right lung base suspicious for infectious/inflammatory process. Hyperinflated lungs. Confirmed rapid Covid as per EMS today. Confirmed Covid in ED 02/25/2020. Inflammatory markers: Ferritin WNL, LDH WNL, D-dimer WNL, CRP 49. Trend for disease progression. Dexamethasone IV, vitamin C, vitamin D, zinc Consider ivermectin. Bloodcultures WGTD. Sputum cultures pending Patient is provided supplemental oxygen as needed maintain saturations greater than 89%. Patient is empirically placed on levofloxacin and cefepime. Scheduled and as needed nebulizer treatments. He is placed on Robitussin as needed. Pulmonary toilet is encouraged with incentive spirometer, flutter valve, early ambulation. (2) Acute and chronic respiratory failure Qualifiers: Respiratory failure complication: hypoxia Qualified Code(s): J96.21 - Acute and chronic respiratory failure with hypoxia Is this a current diagnosis for this admission?: Yes Plan: O2 sat within normal limits on 3 L nasal cannula. Presented with 1 week hx cough, sob, runny nose; 1 day hx increased SOB, fatigue, decreased mental status As per EMS O2 sat in the 80s initially. Cause is likely multifocal in nature: Primarily pneumonia secondary to COVID-19 infection, with congestive heart failure and COPD being a factor. Treatment as above. (3) Sepsis Qualifiers: Sepsis type: Streptococcus, unspecified Sepsis acute organ dysfunction status: without acute organ dysfunction Qualified Code(s): A40.9 - Streptococcal sepsis, unspecified Is this a current diagnosis for this admission?: Yes Plan: Resolved On initial presentation SEPSIS criteria met given following: - Febrile 102.3 - Tachypnea 22 - Confirmed COVID 19 test with pneumonia - Lactic acidosis 2.4 Patient received Tylenol and bolus of IV fluid in ED. Since has remained afebrile, heart rate within normal limits, and lactic acidosis has resolved. Blood cultures WNGT. Treatment as per #1 (4) COPD (chronic obstructive pulmonary disease) Qualifiers: COPD type: COPD with acute lower respiratory infection Qualified Code(s): J44.0 - Chronic obstructive pulmonary disease with (acute) lower respiratory infection Is this a current diagnosis for this admission?: Yes Plan: On 2-3L NC home O2. CXR: Notable for hyperinflation. Unable to differentiate if in exacerbation at this time. Abx as above. Breathing tx as above. (5) History of congestive heart failure Is this a current diagnosis for this admission?: Yes Plan: History of CHF. Certainly may play a role in patient's hypoxia. Most recent Echo per our records: 02/2016 Left ventricle normal LVEF 45% to 50%. -We will look for more recent echocardiogram. Discussed with , previously followed by Dr. Prasad in outpatient setting. Pro BNP on 02/09/2020 1300, 900 today. Cnt lasix 20mg p.o. for now. (6) Atrial fibrillation Qualifiers: Atrial fibrillation type: unspecified Qualified Code(s): I48.91 - Unspecified atrial fibrillation Is this a current diagnosis for this admission?: Yes Plan: History of atrial fibrillation, rate controlled, on chronic anticoagulation. Medications include diltiazem 180 mg daily, Apaxiban 5 mg BID. Continue home medications. On telemetry. Outpatient PCP and cardiology follow-up. (7) Dementia Qualifiers: Dementia type: unspecified type Dementia behavioral disturbance: without behavioral disturbance Qualified Code(s): F03.90 - Unspecified dementia without behavioral disturbance Is this a current diagnosis for this admission?: Yes Plan: Hx dementia with 1 day decreased mental status. Pt poor historian contacted Valentine who provided HPI information. Of note patient lives at home with his Iris who acts as his primary caregiver. They do have a "aide" who reports the house 3 times a week, helps with chores around the house, helps with groceries and cooking, but does not provide any health care. (8) Agitation Is this a current diagnosis for this admission?: Yes Plan: Patient has become acutely agitated. Removing nasal canulla, pulse ox, IV and telemetry. Respiradone OTD prn. - Time Time Spent with patient: 35 or more minutes Medications reviewed and adjusted accordingly: Yes Anticipated Discharge Disposition: TBD Anticipated Discharge Timeframe: TBD
[2020-02-26] MEDS ORDERED: CEFEPIME 2 GM/D5W RTU 2 GM/50 ML RTUPB IV SCH (22:00)
[2020-02-26] MEDS ORDERED: CEFEPIME 2 GM/D5W RTU 2 GM/50 ML RTUPB IV ONE (22:15)
[2020-02-26] MEDS: DEXAMETHASONE SOD PHOS INJ 10 MG/1 ML VIAL IV SCH (22:21)
[2020-02-27 06:04] LABS: HEMATOCRIT 40.5 % (37.9-51.0); HEMOGLOBIN 13.5 g/dL (13.5-17.0); MEAN CORPUSCULAR HEMOGLOBIN 33.2 pg (27.0-33.4); MEAN CORPUSCULAR HGB CONC 33.4 g/dL (32.0-36.0); MEAN CORPUSCULAR VOLUME 99 fl (80-97); PLATELET COUNT 123 10^3/uL (150-450); RED BLOOD COUNT 4.07 10^6/uL (4.35-5.55); RED CELL DISTRIBUTION WIDTH 12.5 % (11.5-14.0); WHITE BLOOD COUNT 6.3 10^3/uL (4.0-10.5)
[2020-02-27 06:31] LABS: BLOOD UREA NITROGEN 21 mg/dL (7-20); CALCIUM 8.8 mg/dL (8.4-10.2); CARBON DIOXIDE 32 mmol/L (22-30); CHLORIDE 104 mmol/L (98-107); GLUCOSE 121 mg/dL (75-110)
[2020-02-27 06:40] LABS: ANION GAP 2 (5-19)
[2020-02-27] MEDS: LEVOFLOXACIN 750 MG/D5W RTU 750 MG/150 ML RTUPB IV SCH (09:46)
[2020-02-27] MEDS: ASCORBIC ACID 500 MG TABLET PO SCH ×2 (09:46→18:39)
[2020-02-27] MEDS: CHOLECALCIFEROL (D3) 1,000 UNIT (25 MCG) TABLET PO SCH (09:46)
[2020-02-27] MEDS: DILTIAZEM HCL 180 MG CAPSULE.CR PO SCH (09:47)
[2020-02-27] MEDS: APIXABAN 5 MG TABLET PO SCH ×2 (09:47→21:34)
[2020-02-27] MEDS: FUROSEMIDE 20 MG TABLET PO SCH (09:47)
[2020-02-27] MEDS: ZINC SULFATE 220 MG CAPSULE PO SCH (09:47)
[2020-02-27] MEDS ORDERED: CEFEPIME HCL 2 GM in DEXTROSE 5%-WATER 50 ML IV SCH (10:00)
--- NOTE | 2020-02-27 14:49 | PDOC PROGRESS REPORT ---
Subjective Date:: 02/27/20 Subjective:: SILVESTRE DELGADILLO is a 89 year old male with past medical history dementia, COPD, Afib and CHF with covid-19 related pneumonia, acute on chronic respiratory failure and SEPSIS. Hospital day 3: Patient seen on morning rounds. He is resting upright in bed. O2 sat within normal limits on 3 L. We can wean at this time. Patient remains confused. Will remove catheter. Plan to have PT evaluate him. Patient unable to provide ROS due to underlying dementia. Contacted patient's son Michael Delgadillo with update. Reason For Visit: COVID-19 PNEMONIA, COPD, SEPSIS Physical Exam Vital Signs: Temp Pulse Resp BP Pulse Ox 97.5 F 84 18 138/89 H 97 02/27/20 10:00 02/27/20 09:08 02/27/20 09:08 02/27/20 09:08 02/27/20 09:08 Intake & Output 02/26/20 02/27/20 02/28/20 06:59 06:59 06:59 Intake Total 2049 250 150 Output Total 2525 Balance 2049 -2274 150 Weight 73 kg 71.6 kg General appearance: PRESENT: hard of hearing, other - Confused, but calm. Eye exam: PRESENT: other - Cataract bilaterally Mouth exam: PRESENT: dry mucosa Neck exam: PRESENT: full ROM. ABSENT: JVD Respiratory exam: PRESENT: clear to auscultation marichuy, rhonchi. ABSENT: wheezes Cardiovascular exam: PRESENT: irregular rhythm GI/Abdominal exam: PRESENT: normal bowel sounds, soft Gentrourinary exam: ABSENT: indwelling catheter Extremities exam: PRESENT: other - Chronic lymphedema noted bilateral lower extremities. Associated skin is dry and cracking though without redness or warmth. Musculoskeletal exam: PRESENT: full ROM Neurological exam: PRESENT: altered, awake Psychiatric exam: ABSENT: agitated Skin exam: PRESENT: dry. ABSENT: rash Results Laboratory Results: 02/27/20 05:32 02/27/20 05:32 02/27/20 02/27/20 05:32 05:32 WBC 6.3 RBC 4.07 L Hgb 13.5 Hct 40.5 MCV 99 H MCH 33.2 MCHC 33.4 RDW 12.5 Plt Count 123 L Sodium 138.0 Potassium 4.0 Chloride 104 Carbon Dioxide 32 H Anion Gap 2 L BUN 21 H Creatinine 0.59 Est GFR ( Amer) > 60 Glucose 121 H Calcium 8.8 02/26/20 08:32 NT-Pro-B Natriuret Pep 937 H Impressions: Chest X-Ray 02/25/20 13:51 IMPRESSION: Developing consolidation at the right lung base suspicious for infectious/ inflammatory process. Lungs are hyperinflated which can be seen with obstructive lung disease. Assessment and Plan - Diagnosis (1) Pneumonia due to COVID-19 virus Is this a current diagnosis for this admission?: Yes Plan: 98% on 3L NC. Wean O2. From a Covid standpoint appears stable. On initial presentation patient with increasing shortness of breath, cough, fatigue and decreased mental status x1 day. O2 sat in 80s on initial evaluation. CXR: Developing consolidation at the right lung base suspicious for infectious/inflammatory process. Hyperinflated lungs. Confirmed Covid in ED 02/25/2020. Inflammatory markers: Ferritin WNL, LDH WNL, D-dimer WNL, CRP 49. Trend for disease progression. Vitamin C, vitamin D, zinc. Dexamethasone transitioned to Prednisone p.o. Bloodcultures WGTD. Sputum cultures uncollected. Patient is provided supplemental oxygen as needed maintain saturations greater than 89%. Empiric levofloxacin and cefepime IV x2 days. Transition to Levofloxacin 750mg p.o. Scheduled and as needed nebulizer treatments. He is placed on Robitussin as needed. Pulmonary toilet is encouraged with incentive spirometer, flutter valve, early ambulation. (2) Acute and chronic respiratory failure Qualifiers: Respiratory failure complication: hypoxia Qualified Code(s): J96.21 - Acute and chronic respiratory failure with hypoxia Is this a current diagnosis for this admission?: Yes Plan: O2 sat WNL on 3L NC. Wean. Tx as above. (3) Sepsis Qualifiers: Sepsis type: Streptococcus, unspecified Sepsis acute organ dysfunction status: without acute organ dysfunction Qualified Code(s): A40.9 - Streptococcal sepsis, unspecified Is this a current diagnosis for this admission?: Yes Plan: Resolved On initial presentation SEPSIS criteria met given following: - Febrile 102.3 - Tachypnea 22 - Confirmed COVID 19 test with pneumonia - Lactic acidosis 2.4 Patient received Tylenol and bolus of IV fluid in ED. Since has remained afebrile, heart rate within normal limits, and lactic acidosis has resolved. Blood cultures WNGT. Treatment as per #1 (4) COPD (chronic obstructive pulmonary disease) Qualifiers: COPD type: COPD with acute lower respiratory infection Qualified Code(s): J44.0 - Chronic obstructive pulmonary disease with (acute) lower respiratory infection Is this a current diagnosis for this admission?: Yes Plan: On 2-3L NC home O2. CXR: Notable for hyperinflation. Unable to differentiate if in exacerbation at this time. Abx as above. Breathing tx as above. (5) History of congestive heart failure Is this a current diagnosis for this admission?: Yes Plan: Does not appear to be in current exacerbation. History of CHF. Pro BNP on 02/09/2020 1300, 900 today. Cnt lasix 20mg p.o. (6) Atrial fibrillation Qualifiers: Atrial fibrillation type: unspecified Qualified Code(s): I48.91 - Unspec ified atrial fibrillation Is this a current diagnosis for this admission?: Yes Plan: History of atrial fibrillation, rate controlled. Medications include diltiazem 180 mg daily, Apaxiban 5 mg BID. Continue home medications. On telemetry. Outpatient PCP and cardiology follow-up. (7) Dementia Qualifiers: Dementia type: unspecified type Dementia behavioral disturbance: without behavioral disturbance Qualified Code(s): F03.90 - Unspecified dementia without behavioral disturbance Is this a current diagnosis for this admission?: Yes Plan: Hx dementia. Pt poor historian contacted [facility] who provided HPI information. Of note patient lives at home with his Iris who acts as his primary caregiver. They do have a "aide" who reports the house 3 times a week, helps with chores around the house, helps with groceries and cooking, but does not provide any health care. (8) Agitation Is this a current diagnosis for this admission?: Yes Plan: Patient without agitation today, though remains confused. Respiradone OTD prn. - Plan Summary Summary: Transition to p.o. abx. Remove Wright catheter. PT eval, potential dc to SNF vs home health. - Time Time Spent with patient: 25-34 minutes Medications reviewed and adjusted accordingly: Yes Anticipated Discharge Disposition: Home with Home Health - vs SNF,pending PT Anticipated Discharge Timeframe: within 72 hours
[2020-02-27] MEDS ORDERED: NORMAL SALINE 1000 ML 1,000 ML IV ONE (21:00)
[2020-02-28 05:51] LABS: HEMOGLOBIN 15.2 g/dL (13.5-17.0); MEAN CORPUSCULAR HEMOGLOBIN 33.7 pg (27.0-33.4); MEAN CORPUSCULAR HGB CONC 33.8 g/dL (32.0-36.0); MEAN CORPUSCULAR VOLUME 100 fl (80-97); PLATELET COUNT 170 10^3/uL (150-450); RED BLOOD COUNT 4.51 10^6/uL (4.35-5.55); RED CELL DISTRIBUTION WIDTH 12.7 % (11.5-14.0); WHITE BLOOD COUNT 10.3 10^3/uL (4.0-10.5)
[2020-02-28 06:16] LABS: ANION GAP 7 (5-19); BLOOD UREA NITROGEN 25 mg/dL (7-20); C-REACTIVE PROTEIN 24.8 mg/L (<10.0); CALCIUM 9.3 mg/dL (8.4-10.2); CARBON DIOXIDE 31 mmol/L (22-30); CHLORIDE 103 mmol/L (98-107); GLUCOSE 95 mg/dL (75-110); POTASSIUM 3.8 mmol/L (3.6-5.0)
[2020-02-28 06:34] LABS: ERYTHROCYTE SEDIMENTATION RATE 20 mm/hr (0-20)
[2020-02-28] MEDS: LEVOFLOXACIN 750 MG TABLET PO SCH (09:07)
[2020-02-28] MEDS: DILTIAZEM HCL 180 MG CAPSULE.CR PO SCH (09:07)
[2020-02-28] MEDS: APIXABAN 5 MG TABLET PO SCH ×2 (09:08→21:40)
[2020-02-28] MEDS: ZINC SULFATE 220 MG CAPSULE PO SCH (09:08)
[2020-02-28] MEDS: PREDNISONE 20 MG TABLET PO SCH (09:08)
[2020-02-28] MEDS: CHOLECALCIFEROL (D3) 1,000 UNIT (25 MCG) TABLET PO SCH (09:08)
[2020-02-28] MEDS: ASCORBIC ACID 500 MG TABLET PO SCH ×2 (09:08→18:17)
[2020-02-28] MEDS: FUROSEMIDE 20 MG TABLET PO SCH (09:08)
[2020-02-28] MEDS ORDERED: FUROSEMIDE INJ/PF 40 MG/4 ML SDV IV ONE (11:04)
--- NOTE | 2020-02-28 16:40 | ADVANCED CARE ---
- Diagnosis (2) Pneumonia due to COVID-19 virus Diagnosis Current: Yes (3) Acute and chronic respiratory failure Diagnosis Current: Yes (4) Sepsis Diagnosis Current: Yes (5) History of congestive heart failure Diagnosis Current: Yes (6) COPD (chronic obstructive pulmonary disease) Diagnosis Current: Yes (7) Atrial fibrillation Diagnosis Current: Yes (8) Agitation Diagnosis Current: Yes Attendance: Conversation held with patient's Iris and myself on the telephone. Resuscitation Status: Do Not Resuscitate Discussion: The patient is a DNR. A discussion regarding patient's treatment options following hospitalization was held with patient's . I provided her with information on home health versus home hospice versus short-term nursing facility disposition per . Her wish is to have her come home following hospitalization. At this time patient's , Iris, [place] patient's primary caregiver. Additionally they have a aide who may pay [id number] for that comes for a few hours 3 times a week. She is understanding that given patient's baseline dementia his return home would require additional help. She expresses interest in home hospice services and requests more information at this time. The patient and both wish to receive all services through the [facility]. Care Planning Goals: The goal would be to have the patient's establish an understanding of their available options following disposition home health vs home hospice vs SNF. She is interested in home hospice at this time. Discharge planning to provide more information. Document(s) Completed: None. Time Spent: 25
--- NOTE | 2020-02-28 18:01 | PDOC PROGRESS REPORT ---
Subjective Date:: 02/28/20 Subjective:: SILVESTRE DELGADILLO is a 89 year old male with past medical history dementia, COPD, Afib and CHF with covid-19 related pneumonia, acute on chronic respiratory failure and SEPSIS. Hospital day 4: Patient seen on morning rounds. He is resting upright in bed. O2 sat within normal limits on room air. Patient remains confused, though is no longer agitated, he is rather pleasant on interaction. His catheter Wright catheter has been removed. Patient's overall presentation has progressively improved from initial. Patient unable to provide ROS due to underlying dementia. Contacted patient's Iris and provided update. Goals of care conversation 9. Please refer to ACP note. Contacted patient's son Michael Delgadillo with update. Discussed with nursing. No acute events overnight. No concerns at this time. Reason For Visit: COVID-19 PNEMONIA, COPD, SEPSIS Physical Exam Vital Signs: Temp Pulse Resp BP Pulse Ox 97.5 F 96 15 107/87 H 96 02/28/20 12:15 02/28/20 12:15 02/28/20 06:45 02/28/20 12:15 02/28/20 12:15 Intake & Output 02/27/20 02/28/20 02/29/20 06:59 06:59 06:59 Intake Total 153 863 1959 Output Total 2525 500 Balance -2275 -350 1000 Weight 71.6 kg 69.5 kg Additional comments: General appearance: PRESENT: hard of hearing, other - Confused, but calm, cooperative and pleasant. Eye exam: PRESENT: other - Cataract bilaterally Mouth exam: PRESENT: dry mucosa Neck exam: PRESENT: full ROM. ABSENT: JVD Respiratory exam: PRESENT: clear to auscultation marichuy, rhonchi. ABSENT: wheezes Cardiovascular exam: PRESENT: irregular rhythm GI/Abdominal exam: PRESENT: normal bowel sounds, soft Gentrourinary exam: ABSENT: indwelling catheter Extremities exam: PRESENT: other - Chronic lymphedema noted bilateral lower extremities. Associated skin is dry and cracking though without redness or warmth. Musculoskeletal exam: PRESENT: full ROM Neurological exam: PRESENT: altered, awake Psychiatric exam: ABSENT: agitated Skin exam: PRESENT: dry. ABSENT: rash Results Laboratory Results: 02/28/20 04:48 02/28/20 04:48 02/28/20 02/28/20 04:48 04:48 WBC 10.3 RBC 4.51 Hgb 15.2 Hct 45.0 MCV 100 H MCH 33.7 H MCHC 33.8 RDW 12.7 Plt Count 170 Sodium 140.5 Potassium 3.8 Chloride 103 Carbon Dioxide 31 H Anion Gap 7 BUN 25 H Creatinine 0.65 Est GFR ( Amer) > 60 Glucose 95 Calcium 9.3 Ferritin 265.00 C-Reactive Protein 24.8 H 02/26/20 08:32 NT-Pro-B Natriuret Pep 937 H Impressions: Chest X-Ray 02/25/20 13:51 IMPRESSION: Developing consolidation at the right lung base suspicious for inf ectious/ inflammatory process. Lungs are hyperinflated which can be seen with obstructive lung disease. Assessment and Plan - Diagnosis (1) Dementia Qualifiers: Dementia type: unspecified type Dementia behavioral disturbance: without behavioral disturbance Qualified Code(s): F03.90 - Unspecified dementia without behavioral disturbance Is this a current diagnosis for this admission?: Yes Plan: Hx dementia. Has experienced some delirium. (2) Pneumonia due to COVID-19 virus Is this a current diagnosis for this admission?: Yes Plan: 98% on 3L NC. Wean O2. From a Covid standpoint appears stable. On initial presentation patient with increasing shortness of breath, cough, fatigue and decreased mental status x1 day. O2 sat in 80s on initial evaluation. CXR: Developing consolidation at the right lung base suspicious for infec tious/inflammatory process. Hyperinflated lungs. Confirmed Covid in ED 02/25/2020. Inflammatory markers: Ferritin WNL, LDH WNL, D-dimer WNL, CRP 49. Vitamin C, vitamin D, zinc. Dexamethasone transitioned to Prednisone p.o. Deferred remdesivir or ivermectin therapy, presentation more consistent with bacterial pneumonia. Blood cultures WGTD. O2 sat within normal limits on room air. Empiric levofloxacin and cefepime IV x2 days. Transition to Levofloxacin 750mg p.o. Scheduled and as needed nebulizer treatments. He is placed on Robitussin as needed. Pulmonary toilet is encouraged with incentive spirometer, flutter valve, early ambulation. (3) Acute and chronic respiratory failure Qualifiers: Respiratory failure complication: hypoxia Qualified Code(s): J96.21 - Acute and chronic respiratory failure with hypoxia Is this a current diagnosis for this admission?: Yes Plan: O2 sats within normal limits on room air. Lung sounds mild on exam likely from fluids on p.o. Lasix initiate IV Lasix single dose. Tx as above. (4) Sepsis Qualifiers: Sepsis type: Streptococcus, unspecified Sepsis acute organ dysfunction status: without acute organ dysfunction Qualified Code(s): A40.9 - Streptococcal sepsis, unspecified Is this a current diagnosis for this admission?: Yes Plan: Resolved On initial presentation SEPSIS criteria met given following: - Febrile 102.3 - Tachypnea 22 - Confirmed COVID 19 test with pneumonia - Lactic acidosis 2.4 Patient received Tylenol and bolus of IV fluid in ED. Since has remained afebrile, heart rate within normal limits, and lactic acidosis has resolved. Blood cultures WNGT. Treatment as per #1 (5) History of congestive heart failure Is this a current diagnosis for this admission?: Yes Plan: Does not appear to be in current exacerbation. Wet lung sounds on physical exam, on p.o. lasix at home, single dose IV lasix. History of CHF. Pro BNP on 02/09/2020 1300, 900 today. Cnt lasix 20mg p.o. (6) COPD (chronic obstructive pulmonary disease) Qualifiers: COPD type: COPD with acute lower respiratory infection Qualified Code(s): J44.0 - Chronic obstructive pulmonary disease with (acute) lower respiratory inf ection Is this a current diagnosis for this admission?: Yes Plan: On 2-3L [place] home O2. CXR: Notable for hyperinflation. Unable to differentiate if in exacerbation at this time. Abx as above. Breathing tx as above. (7) Atrial fibrillation Qualifiers: Atrial fibrillation type: unspecified Qualified Code(s): I48.91 - Unspecified atrial fibrillation Is this a current diagnosis for this admission?: Yes Plan: History of atrial fibrillation, rate controlled. Medications include diltiazem 180 mg daily, Apaxiban 5 mg BID. Continue home medications. On telemetry. Outpatient PCP and cardiology follow-up. (8) Agitation Is this a current diagnosis for this admission?: Yes Plan: Secondary to delirium. Patient without agitation today, though remains confused. Respiradone OTD prn. - Time Time Spent with patient: 25-34 minutes Medications reviewed and adjusted accordingly: Yes Anticipated Discharge Disposition: Home with Hospice Anticipated Discharge Timeframe: within 24 hours
[2020-02-29 04:35] VITALS: BP 129/81
[2020-02-29 05:14] LABS: HEMATOCRIT 41.8 % (37.9-51.0); HEMOGLOBIN 14.4 g/dL (13.5-17.0); MEAN CORPUSCULAR HGB CONC 34.5 g/dL (32.0-36.0); MEAN CORPUSCULAR VOLUME 99 fl (80-97); PLATELET COUNT 138 10^3/uL (150-450); RED BLOOD COUNT 4.25 10^6/uL (4.35-5.55); RED CELL DISTRIBUTION WIDTH 12.7 % (11.5-14.0); WHITE BLOOD COUNT 7.5 10^3/uL (4.0-10.5)
[2020-02-29 05:51] LABS: ANION GAP 6 (5-19); BLOOD UREA NITROGEN 27 mg/dL (7-20); CARBON DIOXIDE 33 mmol/L (22-30); CHLORIDE 102 mmol/L (98-107); GLUCOSE 107 mg/dL (75-110); POTASSIUM 3.6 mmol/L (3.6-5.0)
[2020-02-29] MEDS: FUROSEMIDE 20 MG TABLET PO SCH (09:14)
[2020-02-29] MEDS: CHOLECALCIFEROL (D3) 1,000 UNIT (25 MCG) TABLET PO SCH (09:14)
[2020-02-29] MEDS: ASCORBIC ACID 500 MG TABLET PO SCH (09:14)
[2020-02-29] MEDS: ZINC SULFATE 220 MG CAPSULE PO SCH (09:14)
[2020-02-29] MEDS: APIXABAN 5 MG TABLET PO SCH (09:14)
[2020-02-29] MEDS: PREDNISONE 20 MG TABLET PO SCH (09:14)
[2020-02-29] MEDS: LEVOFLOXACIN 750 MG TABLET PO SCH (09:14)
[2020-02-29] MEDS: DILTIAZEM HCL 180 MG CAPSULE.CR PO SCH (09:14)
--- NOTE | 2020-02-29 13:43 | PDOC DISCHARGE SUMMARY ---
Impression - Admit/DC Date/PCP Admission Date/Primary Care Provider: 02/25/20 18:39 SILVESTRE BRICEÑO MD Discharge Date: 02/29/20 - Discharge Diagnosis (1) Dementia Is this a current diagnosis for this admission?: Yes (2) Pneumonia due to COVID-19 virus Is this a current diagnosis for this admission?: Yes (3) Acute and chronic respiratory failure Is this a current diagnosis for this admission?: Yes (4) Sepsis Is this a current diagnosis for this admission?: Yes (5) History of congestive heart failure Is this a current diagnosis for this admission?: Yes (6) COPD (chronic obstructive pulmonary disease) Is this a current diagnosis for this admission?: Yes (7) Atrial fibrillation Is this a current diagnosis for this admission?: Yes (8) Agitation Is this a current diagnosis for this admission?: Yes - Additional Information Resuscitation Status: Do Not Resuscitate Discharge Diet: As Tolerated Discharge Activity: Activity As Tolerated Referrals: SILVESTRE BRICEÑO MD [Primary Care Provider] - Follow up as needed Home Medications: Albuterol Sulfate [Proair HFA] 2 puff IH QIDP PRN 02/28/16 Budesonide/Formoterol Fumarate [Symbicort HFA 160-4.5 mcg Inhaler 6 gm] 2 puff IH Q12 02/28/16 Tiotropium [place] [Spiriva Handihaler 18 mcg/dose (30 Dose)] 1 cap IH DAILY 02/28/16 Diltiazem HCl [Cardizem Cd 180 mg Capsule] 180 mg PO Q12 #60 capsule.cr 03/06/16 Furosemide [Lasix 20 mg Tablet] 20 mg PO DAILY #30 tablet 03/06/16 Apixaban [Eliquis 5 mg Tablet] 5 mg PO BID 02/28/20 Levalbuterol HCl [Xopenex Neb 0.63 mg/3 ml Ampul] 0.63 mg NEB [id number] PRN 02/28/20 Multivitamin [Multiple Vitamins] 1 tab PO DAILY 02/28/20 Polyethylene Glycol 3350 [Miralax Powder 17 gm/Packet] 1 packet PO DAILY 02/28/20 History of Present Illiness History of Present Illness: SILVESTRE DELGADILLO is a 89 year old male with past medical history dementia, COPD, Afib and CHF who presented to [facility] via EMS for evaluation of increased fatigue, shortness of breath, cough and decreased mental status. Patient with hx dementia thus is a poor historian. Information documented in HPI obtained by EMS notes, ED noted and conversation with pt's Valentine . Per pt's both the patient and herself have had 1 week hx shortness of breath, cough and runny nose. Pt expressed increased severity of symptoms and decreased mental status 1 day ago and his was unable to get him out of bed this morning, prompting her to call EMS. Per EMS pt O2 sat 80% on arrival to his house, this quickly improved with 4L NC. Pt with + rapid COVID test via EMS. On arrival to ED pt was responding minimally with noted fever (102), tachypnea, and low O2 sats which improved with 4 L nasal cannula. Chemistry significant for lactic acid 2.4. Blood gas within normal limits. Chest x-ray notable for developing consolidation at the right lung base suspicious for infectious inflammatory process with hyperinflated lungs consistent with obstructive lung disease. Patient was treated with dose of ceftriaxone and azithromycin, Tylenol for fever, and 1L bolus NS. He has since become afebrile and lactic acid now WNL. Hospitalist team is contacted for further treatment and evaluation. Hospital Course Hospital Course: (1) Dementia Hx dementia. Has experienced some delirium. Conversation was held between myself and patient's on the phone. is informed that given that patient's recent hospital stay I do believe it is necessary that she has more assistance at home, this can be obtained from family who lives local, neighbors, or their home health aide. Patient's expressed understanding. This is 1 of many conversations we had regarding patient's return home. Of note discharge planning team has been in contact with the regarding potential home hospice versus home health. The patient does receive all of their care through the OR. (2) Pneumonia due to COVID-19 virus O2 sat greater than 95% on room air. From a Covid standpoint appears stable. On initial presentation patient with increasing shortness of breath, cough, fatigue and decreased mental status x1 day. O2 sat in 80s on initial evaluation. CXR: Developing consolidation at the right lung base suspicious for infectious/inflammatory process. Hyperinflated lungs. Confirmed Covid in ED 02/25/2020. Inflammatory markers: Ferritin WNL, LDH WNL, D-dimer WNL, CRP 49. Vitamin C, vitamin D, zinc. Dexamethasone transitioned to Prednisone p.o. steroid therapy completed for 5 days. No further therapy required at this time. Deferred remdesivir or ivermectin therapy, presentation more consistent with bacterial pneumonia. Blood cultures WGTD. O2 sat within normal limits on room air. Empiric levofloxacin and cefepime IV x2 days. Transition to Levofloxacin 750mg p.o. Received a total of 5 days antibiotic treatment. No further antibiotic treatment needed at this time. Scheduled and as needed nebulizer treatments. He is placed on Robitussin as needed. Pulmonary toilet is encouraged with incentive spirometer, flutter valve, early ambulation. (3) Acute and chronic respiratory failure O2 sats within normal limits on room air. Lung sounds mild on exam likely from fluids on p.o. Lasix initiate IV Lasix single dose. Tx as above. (4) Sepsis Resolved On initial presentation SEPSIS criteria met given following: - Febrile 102.3 - Tachypnea 22 - Confirmed COVID 19 test with pneumonia - Lactic acidosis 2.4 Patient received Tylenol and bolus of IV fluid in ED. Since has remained afebrile, heart rate within normal limits, and lactic acidosis has resolved. Blood cultures WNGT. Treatment as per #1 (5) History of congestive heart failure Does not appear to be in current exacerbation. Wet lung sounds on physical exam, on p.o. lasix at home, single dose IV lasix. History of CHF. Pro BNP on 02/09/2020 1300, 900 today. Cnt lasix 20mg p.o. (6) COPD (chronic obstructive pulmonary disease) On 2-3L NC home O2. CXR: Notable for hyperinflation. Unable to differentiate if in exacerbation at this time. Abx as above. Breathing tx as above. (7) Atrial fibrillation History of atrial fibrillation, rate controlled. Medications include diltiazem 180 mg daily, Apaxiban 5 mg BID. Continue home medications. On telemetry. Outpatient PCP and cardiology follow-up. (8) Agitation Secondary to delirium. Patient without agitation today, though remains confused. Respiradone OTD prn. Physical Exam Vital Signs: Temp Pulse Resp BP Pulse Ox 97.5 F 85 20 129/81 H 98 02/29/20 10:00 02/29/20 03:00 02/29/20 03:00 02/29/20 03:00 02/29/20 03:00 Intake & Output 02/28/20 02/29/20 03/01/20 06:59 06:59 06:59 Intake Total 150 1360 Output Total 500 Balance -350 1360 Weight 69.5 kg 69.6 kg Additional comments: General appearance: PRESENT: hard of hearing, other - Confused, but calm, interior design coordinator perative and pleasant. Eye exam: PRESENT: other - Cataract bilaterally Mouth exam: PRESENT: dry mucosa Neck exam: PRESENT: full ROM. ABSENT: JVD Respiratory exam: PRESENT: clear to auscultation marichuy. ABSENT: wheezes Cardiovascular exam: PRESENT: irregular rhythm GI/Abdominal exam: PRESENT: normal bowel sounds, soft Gentrourinary exam: ABSENT: indwelling catheter Extremities exam: PRESENT: other - Chronic lymphedema noted bilateral lower extremities. Associated skin is dry and cracking though without redness or warmth. Musculoskeletal exam: PRESENT: full ROM Neurological exam: PRESENT: altered, awake Psychiatric exam: ABSENT: agitated Skin exam: PRESENT: dry. ABSENT: rash Results Laboratory Results: WBC 7.5 10^3/uL (4.0-10.5) 02/29/20 04:39 RBC 4.25 10^6/uL (4.35-5.55) L 02/29/20 04:39 Hgb 14.4 g/dL (13.5-17.0) 02/29/20 04:39 Hct 41.8 % (37.9-51.0) 02/29/20 04:39 MCV 99 fl (80-97) H 02/29/20 04:39 MCH 34.0 pg (27.0-33.4) H 02/29/20 04:39 MCHC 34.5 g/dL (32.0-36.0) 02/29/20 04:39 RDW 12.7 % (11.5-14.0) 02/29/20 04:39 Plt Count 138 10^3/uL (150-450) L 02/29/20 04:39 Lymph % (Auto) 6.5 % (13-45) L 02/25/20 14:15 Johnson % (Auto) 8.7 % (3-13) 02/25/20 14:15 Eos % (Auto) 0.1 % (0-6) 02/25/20 14:15 Baso % (Auto) 0.3 % (0-2) 02/25/20 14:15 Absolute Neuts (auto) 5.3 10^3/uL (1.7-8.2) 02/25/20 14:15 Absolute Lymphs (auto) 0.4 10^3/uL (0.5-4.7) L 02/25/20 14:15 Absolute Monos (auto) 0.5 10^3/uL (0.1-1.4) 02/25/20 14:15 Absolute Eos (auto) 0.0 10^3/uL (0.0-0.6) 02/25/20 14:15 Absolute Basos (auto) 0.0 10^3/uL (0.0-0.2) 02/25/20 14:15 Seg Neutrophils % 84.4 % (42-78) H 02/25/20 14:15 ESR 20 mm/hr (0-20) 02/28/20 04:48 D-Dimer 0.39 ug/mL (0.00-0.50) 02/28/20 04:48 VBG pH 7.33 (7.30-7.42) 02/25/20 14:15 VBG pCO2 59.3 mmHg (35-63) 02/25/20 14:15 VBG HCO3 30.8 mmol/L (20-32) 02/25/20 14:15 VBG Base Excess 2.4 mmol/L 02/25/20 14:15 Sodium 141.4 mmol/L (137-145) 02/29/20 04:39 Potassium 3.6 mmol/L (3.6-5.0) 02/29/20 04:39 Chloride 102 mmol/L (98-107) 02/29/20 04:39 Carbon Dioxide 33 mmol/L (22-30) H 02/29/20 04:39 Anion Gap 6 (5-19) 02/29/20 04:39 BUN 27 mg/dL (7-20) H 02/29/20 04:39 Creatinine 0.62 mg/dL (0.52-1.25) 02/29/20 04:39 Est GFR ( Amer) > 60 (>60) 02/29/20 04:39 Est GFR (MDRD) Non-Af > 60 (>60) 02/29/20 04:39 Glucose 107 mg/dL (75-110) 02/29/20 04:39 POC Glucose 150 mg/dL (70-110) H 02/25/20 14:33 Lactic Acid 1.3 mmol/L (0.7-2.1) 02/25/20 21:10 Calcium 9.0 mg/dL (8.4-10.2) 02/29/20 04:39 Ferritin 265.00 ng/mL (17.9-464.0) 02/28/20 04:48 Total Bilirubin 0.6 mg/dL (0.2-1.3) 02/25/20 14:15 Direct Bilirubin 0.1 mg/dL (0.0-0.4) 02/25/20 14:15 Neonat Total Bilirubin Not Reportable 02/25/20 14:15 Neonat Direct Bilirubin Not Reportable 02/25/20 14:15 Neonat Indirect Bili Not Reportable 02/25/20 14:15 AST 34 U/L (17-59) 02/25/20 14:15 ALT 19 U/L (<50) 02/25/20 14:15 Alkaline Phosphatase 82 U/L (38-126) 02/25/20 14:15 Lactate Dehydrogenase 235 U/L (120-246) 02/28/20 04:48 C-Reactive Protein 24.8 mg/L (<10.0) H 02/28/20 04:48 NT-Pro-B Natriuret Pep 937 pg/mL (<450) H 02/26/20 08:32 Total Protein 6.7 g/dL (6.3-8.2) 02/25/20 14:15 Albumin 3.6 g/dL (3.5-5.0) 02/25/20 14:15 Urine Color YELLOW 02/25/20 14:15 Urine Appearance CLEAR 02/25/20 14:15 Urine pH 5.0 (5.0-9.0) 02/25/20 14:15 Ur Specific [place] 1.016 02/25/20 14:15 Urine Protein NEGATIVE mg/dL (NEGATIVE) 02/25/20 14:15 Urine Glucose (UA) NEGATIVE mg/dL (NEGATIVE) 02/25/20 14:15 Urine Ketones NEGATIVE mg/dL (NEGATIVE) 02/25/20 14:15 Urine Blood NEGATIVE (NEGATIVE) 02/25/20 14:15 Urine Nitrite NEGATIVE (NEGATIVE) 02/25/20 14:15 Urine Bilirubin NEGATIVE (NEGATIVE) 02/25/20 14:15 Urine Urobilinogen NEGATIVE mg/dL (<2.0) 02/25/20 14:15 Ur Leukocyte Esterase NEGATIVE (NEGATIVE) 02/25/20 14:15 Urine WBC (Auto) 1 /HPF 02/25/20 14:15 Urine RBC (Auto) 2 /HPF 02/25/20 14:15 Urine Mucus (Auto) RARE /LPF 02/25/20 14:15 Urine Ascorbic Acid NEGATIVE (NEGATIVE) 02/25/20 14:15 Influenza A (RT-PCR) NEGATIVE (NEGATIVE) 02/25/20 20:05 Influenza B (RT-PCR) NEGATIVE (NEGATIVE) 02/25/20 20:05 RSV (RT-PCR) NEGATIVE (NEGATIVE) 02/25/20 20:05 SARS-CoV-2 Rap RNA(RT-PCR) POSITIVE (NEGATIVE) 02/25/20 20:05 02/26/20 08:32 NT-Pro-B Natriuret Pep 937 H Impressions: Chest X-Ray 02/25/20 13:51 IMPRESSION: Developing consolidation at the right lung base suspicious for infectious/ inflammatory process. Lungs are hyperinflated which can be seen with obstructive lung disease. Plan Time Spent: Greater than 30 Minutes Stroke Is this a Stroke Patient?: No Acute Heart Failure Is this a Heart Failure Patient?: No
== END 2020-02-29 14:30 | disposition home health service (06) | DRG 871 ==
LOC: ER 13:46 → EH 18:39 → 3N 02-26 14:20
PROVIDERS: ADMIT Internal Medicine; ATTEND Hospitalist
DX: A41.89 Other specified sepsis (principal); U07.1 COVID-19; J12.89 Other viral pneumonia; J96.21 Acute and chronic respiratory failure with hypoxia; J15.9 Unspecified bacterial pneumonia; J44.0 Chronic obstructive pulmonary disease with (acute) lower respiratory infection; I48.91 Unspecified atrial fibrillation; F03.90 Unspecified dementia, unspecified severity, without behavioral disturbance, psychotic disturbance, mood disturbance, and anxiety; I11.0 Hypertensive heart disease with heart failure; I50.9 Heart failure, unspecified; Z85.820 Personal history of malignant melanoma of skin; Z87.891 Personal history of nicotine dependence; Z82.49 Family history of ischemic heart disease and other diseases of the circulatory system; Z99.81 Dependence on supplemental oxygen; Z79.01 Long term (current) use of anticoagulants; Z78.1 Physical restraint status; Z66 Do not resuscitate
CPT/HCPCS: 36415; 71045; 80048; 80053; 81001; 82728; 82803; 82962; 83605; 83615; 83880; 85025; 85027; 85379; 85652; 86140; 87040; 93005; 93010; 96365; 96368; 99285; 0241U; C9803; J0456; J0692; J0696; J1100; J1630; J1940; J1956; J3490; J7030; J7060; J7512